=== PATIENT | male | born 1940 | race Caucasian/White ===

== ENCOUNTER 2017-10-24 06:14 | Inpatient (IN) ==
[~2017-10-24 06:14] MED LIST: Vancomycin 1,000 MG, Sodium Chloride IRRigation 1,000 ML IR ONE
[2017-10-24] MEDS ORDERED: CeFAZolin Syr 2,000MG/20 ML 2,000 MG/20 ML SYRINGE IVPB ONE (06:35)
[2017-10-24] MEDS ORDERED: Albuterol 2.5 MG/3 ML NEBULIZER IH ONE (06:35)
[2017-10-24] MEDS ORDERED: Lidocaine -MPF 1% 2 ML VIAL ID ONE (06:37)
[2017-10-24] MEDS ORDERED: Albuterol 2.5 MG/3 ML NEBULIZER ONE (06:39)
[2017-10-24] MEDS ORDERED: Ringers Solution, Lactated 1,000 ML IVC SCH (06:45)
--- NOTE | 2017-10-24 07:11 | Anesthesia Evaluation PreOp ---
Date of Encounter: 10/24/17 Time of Encounter: 07:05 - Past History Planned Operation: R-Fem-Pop Bypass Cardiac History: [place] (NSTEMI), HTN, Hyperlipidemia, Arrhythmia (AFib anticoagulated on Eliquis last dose 10/20/2017. 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 CRI/GFR = 39) Anesthesia History: No Prior Anesthetic Complications, Past Anesthesia (Gilma, CEA [2007]) Alcohol Use: none Drug use: none Medications and Allergies Furosemide [Lasix] 20 mg PO BID 02/29/16 [History] Simvastatin [Zocor] 20 mg PO HS 02/29/16 [History] Tamsulosin HCl [Flomax] 0.4 mg PO DAILY 02/29/16 [History] Apixaban [Eliquis] 2.5 mg PO BID #30 tablet 03/01/16 [Rx] Nitroglycerin [Nitrostat] 0.4 mg SL AD PRN 04/12/16 [History] Finasteride [Proscar] 5 mg PO DAILY 10/02/17 [History] Clopidogrel [Plavix] 75 mg PO DAILY #30 tablet 10/16/17 [Rx] Spironolactone [Aldactone] 25 mg PO BID 10/16/17 [History] Aspirin 81 mg PO DAILY 10/24/17 [History] 3 Allergy/AdvReac Type Severity Reaction Status Date / Time No Known Allergies Allergy Verified 02/29/16 08:03 - Meds/Allergy Pre-op Review Medications Reviewed: Yes Allergies Reviewed: Yes Anesthesia Results - Labs Laboratory Tests 04/13/16 10/01/17 10/01/17 00:54 09:19 09:19 WBC 6.3 Hgb 14.3 Hct 44.0 Plt Count 166 PT 11.5 INR 1.1 APTT 29.3 Sodium Potassium Chloride Carbon Dioxide Est GFR (Non-Af Amer) Est Mean Plasma Glucose 105 Hemoglobin A1c 5.3 10/01/17 09:19 WBC Hgb Hct Plt Count PT INR APTT Sodium 138 Potassium 4.0 Chloride 105 Carbon Dioxide 26 Est GFR (Non-Af Amer) 39 L Est Mean Plasma Glucose Hemoglobin A1c - Imaging EKG: image reviewed (62bpm - ATRIAL FIBRILLATION RIGHT BUNDLE BRANCH BLOCK LEFT ANTERIOR FASCICULAR BLOCK INFERIOR MYOCARDIAL INFARCTION, PROBABLY OLD Electronically Signed On 09-26-2017 17:05:00 EDT by Samina Sanchez) Additional studies: ECHO 03/2016 Impressions: LVEF 60%. Normal left ventricular size and systolic function. Moderately enlarged left atrial size. Severely dilated right ventricle and severely enlarged right atrial size. Moderate-severe tricuspid regurgitation. Mild aortic regurgitation. Mild aortic stenosis. Moderate mitral regurgitation. Estimated RVSP was 45 mmHg. Mild pulmonary hypertension. RAP of 15 mmHg. The IVC is dilated. There is a large pleural effusion. Clinical correlation is suggested. Anesthesia Exam O2 Sat Height 1.8 m Height 1.8 m Weight 79.832 kg Weight 79.832 kg O2 Sat by Pulse Oximetry 95 Vital Signs Temp Pulse Resp BP Pulse Ox 97.6 F 66 18 135/70 95 10/24/17 06:50 10/24/17 06:50 10/24/17 06:50 10/24/17 06:50 10/24/17 06:50 Height: 5'11 Weight: 180# BMI = 24.5 - HEENT Pupil (Motor): Pupils equal, EOMI Mallampati: II Teeth: Edentulous Oral Opening: Greater than 3 - INTEGRATION PROJECT MANAGER LOC: Oriented INTEGRATION PROJECT MANAGER Motor: Normal RUE, Normal LUE, Normal RLE, Normal LLE, Normal Face INTEGRATION PROJECT MANAGER Sensory: Normal: RUE, LUE, RLE, LLE, Face - Cardiac Rhythm: Irregular Murmur: None - Pulmonary Breath Sounds: bilateral Clear Respiratory Effort: Symmetrical Anesthesia Assess/Plan ASA Score: 3 (CAD,PVDz, COPD, Smoker, Hx CVA, CRI) Modified Aditi Scale for Level of Consciousness: Cooperative, oriented, and tranquil Anesthetic Plan: General Monitoring Plan: Standard Monitors Recovery Plan: PACU Anes Supervising Prov Stmt: Pt seen/evaluated, R&B Discussed, questions answered and consent obtained .Zander Chaves MD
[2017-10-24] MEDS ORDERED: Heparin 1,000 UNITS/500 mL 1,500 ML ONE (07:16)
[2017-10-24] MEDS ORDERED: Famotidine 20 MG/2 ML VIAL IVP ONE (07:23)
[2017-10-24] MEDS ORDERED: Pregabalin 75 MG CAPSULE PO ONE (07:23)
[2017-10-24] MEDS ORDERED: Acetaminophen IV 1,000 MG/100 ML INFUS..BTL IVPB ONE (07:23)
[2017-10-24] MEDS ORDERED: *HR* Propofol 200 MG/20 ML VIAL IVP ONE ×2 (07:33→16:39)
[2017-10-24] MEDS ORDERED: *HR* Succinylcholine 200 MG/10 ML VIAL IVP ONE ×2 (07:33→16:41)
[2017-10-24] MEDS ORDERED: Lidocaine -MPF 4% 5 ML AMPUL ONE (07:33)
[2017-10-24] MEDS ORDERED: Lidocaine -MPF 2% 2 ML VIAL ONE ×3 (07:33→16:41)
[2017-10-24] MEDS ORDERED: *HR* FentaNYL (PF) 100 MCG/2 ML VIAL ONE ×3 (07:33→16:39)
--- NOTE | 2017-10-24 07:33 | History & Physical Report ---
Date of Encounter: 10/24/17 Time of Encounter: 07:25 24 Hour HP Update - Instructions Instructions: If the History and Physical is less than 30 days old and was completed prior to A.M. admission and or procedure and has NOT been updated on calendar day of procedure please complete this update prior to performing procedure. - Update Patient reports changes in Medical Condition: No Changes in examination, assessment, or condition: No Changes in Medication: No Preop tests/diagnostics Reviewed: Yes Surgery Remains Indicated: Yes Consent for Planned Operative Procedure(s) Verified: Yes - Pre-Operative Checklist Preoperative Checklist Indicated: Yes Prophylactic Antibiotic Ordered: Yes (vancomycin due to MRSA risk) Home Medications Include Beta Franny: No Beta Franny Taken Today (Day of Surgery): No Beta Franny Taken Yesterday (Day Prior to Surgery): No Is VTE Prophylaxis Indicated?: Yes
[2017-10-24] MEDS ORDERED: Heparin 1,000 UNITS/500 mL 0 ML ONE (07:34)
[2017-10-24] MEDS ORDERED: *HR* PHENYLEPHRINE 1,000 MCG/10 ML SYRINGE IVP ONE ×2 (07:39→09:18)
[2017-10-24] MEDS ORDERED: *HR* Atropine Sulfate 8 MG/20 ML VIAL IVP ONE (08:22)
[2017-10-24] MEDS ORDERED: NiCARdipine 2.5 MG/10 ML Syringe IVPB ONE (08:24)
[2017-10-24] MEDS ORDERED: *HR* Heparin 5,000 UNIT/ML VIAL ONE ×3 (09:14→11:48)
[2017-10-24] MEDS ORDERED: *HR* Magnesium Sulfate 1 GM/2 ML VIAL ONE (09:14)
[2017-10-24] MEDS ORDERED: *HR* Phenylephrine 10 MG/ML VIAL ONE ×4 (09:39→13:22)
[2017-10-24] MEDS ORDERED: *HR* OxyCODONE Immed Rel 5 MG TABLET PO PRN ×3 (10:17→22:37)
[2017-10-24] MEDS ORDERED: MORPHINE SUL Oral CONC 10 MG/0.5 ML ORAL.SYG SL PRN (10:17)
[2017-10-24] MEDS ORDERED: *HR* HYDROmorphone 2 MG TABLET PO PRN (10:17)
[2017-10-24] MEDS ORDERED: Dexamethasone 4 MG/ML VIAL ONE (10:36)
[2017-10-24] MEDS ORDERED: Ondansetron 4 MG/2 ML VIAL ONE (10:36)
--- NOTE | 2017-10-24 10:50 | Anesthesia Procedures ---
Date of Encounter: 10/24/17 Time of Encounter: 07:45 Procedures: Anesthesia - Arterial Line Consent obtained: verbal consent Time out performed: Yes Sedation: Versed (mg): 0 Sedation: Fentanyl (mcg): 50 Supplemental Oxygen via Nasal Cannula (L/min): 0 Local Anesthetic: Lidocaine 1% Amount of Anesthetic used (mls): 1 Size (Gauge): 20 Length (inches): 1 3/4 Technique Used: sterile prep, guide wire technique, direct puncture technique Post-Procedure: line taped into place Patient tolerated procedure: well, no complications Complications: none Site: Radial R Vitals: See Anesthesia Record Comments: Landmarks identified. Sterile P&D, R-radial pulse readily palated. Direct puncture w/20G Arrow. +BRB pulsatile noted. + difficulty advancing guidewire. Aborted that location in favor of more proximal location. + pulsatile BRB noted after readily cannulation w/20G Arrow. Cathther advanced over guidewire without difficulty. Catheter secured. Appropriate wave forms noted on monitor. NO immediate complications. Pt tolerated procedure well and without difficulty. Zander Chaves MD
[2017-10-24 11:48] LABS: ABG Base Excess -3 mEq/L (-2 to 3); ABG Chloride 109 mEq/L (98-107); ABG Glucose 105 mg/dL (60-95); ABG HCO3 23 mEq/L (21-27); ABG Ionized Calcium 1.16 mmol/L (1.15-1.35); ABG Oxygen Saturation 100 % (95-98); ABG PCO2 45 mmHg (35-45); ABG PH 7.33 pH Units (7.32-7.45); ABG PO2 260 mmHg (85-104); ABG TCO2 25 mEq/L (20-26)
[2017-10-24] MEDS ORDERED: Phenylephrine 10 MG in D5% in Water 250 ML IVC SCH (14:15)
--- NOTE | 2017-10-24 14:52 | Operative Note ---
Date of procedure: 10/24/17 Pre-op diagnosis: Peripheral vascular disease with disabling claudication Post-op diagnosis: same Procedure: 1. Right femoral to above knee popliteal artery bypass. 2. 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 3. Right popliteal endarterectomy. 4. Right popliteal and tibial thrombectomy with 4 sudanese lorne embolectomy catheter. Complications: None Anesthesia: GETA Surgeon: Ye Guzman Was there an respiratory therapy assistant present: Yes Air Analysis Engineering Technician: Arya Puente Estimated blood loss (cc): 500 Specimen: femoral aneurysm, right lower extremity plaque and thrombus Condition: stable Disposition: PACU Procedure in Detail: Indications: The patient is a 77-year-old male with a long history of peripheral vascular disease with disabling claudication. His femoral angiogram to have a right superficial femoral artery occlusion with above-knee popliteal artery reconstitution. His angiogram revealed an enlarged right common femoral artery as well. Revascularization was recommended to reduce his symptoms. Procedure: The patient was identified in the preoperative area. The risks, benefits, and alternatives of the procedure were discussed. All questions were answered. The patient was taken to the operating room and placed in supine position on the operating room table. After the induction of general endotracheal anesthesia, he was cleaned and draped in normal sterile fashion. An oblique incision was made over the right groin sharply. Hemostasis was obtained with electrocautery. Through a process of blunt, sharp, and electrocautery dissection, the right femoral vessels were dissected circumferentially. 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 Proximal distal control of this aneurysm was performed circumferentially and vessel loops were passed around it An incision was made on the right medial distal thigh sharply. Hemostasis was obtained with electrocautery. Through a process of blunt, sharp, and electrocautery dissection, the right above-knee popliteal artery was dissected proximally and distally and surrounded with vessel loops. The artery was noted to have firm and calcified plaque. A graft was tunneled between the popliteal and femoral incisions. The patient received 5000 units of heparin intravenously. Additional heparin was given throughout the case to maintain adequate anticoagulation. The popliteal vessels were occluded and a longitudinal arteriotomy was made in the popliteal artery. Significant irregular plaque was noted in the popliteal artery. Using a dental freer a standard endarterectomy is performed. The plaque was removed. The distal end point could not be visualized through the arteriotomy. The distal end of the graft was sutured in place with a running 6-0 Prolene, but not tied. Heparinized saline was infused into the lumen. Tension was applied to the femoral vessel loops. An arteriotomy was made in the lateral wall of the common femoral artery. The aneurysm was circumferentially excised until grossly normal-appearing femoral artery was encountered. A localized endarterectomy of calcified plaque was also performed along the margins. The proximal end of the graft was cut to fit the arterial defect. The graft was then sutured to the long arterial defect with a running 6-0 Prolene. The vessels were flushed through the graft and heparin was infused into the lumen. The graft was clamped with an atraumatic clamp. Thrombin and gelfoam were used at the proximal anastamosis. The distal arterial anastomosis was completed and prior to completing the closure, the popliteal vessels were flushed and reoccluded. Heparinized saline was infused into the lumen. The anastamosis was tied and then flow was restored. At this time, no tibial signals could identify by Doppler. The Doppler signal terminated in the popliteal fossa. Concern for distal disease was noted. An incision was then made along the medial calf longitudinally. Through a process of blunt sharp and electrocautery dissection the skin, subcutaneous tissue and muscle fascia were dissected. The below-knee popliteal artery was exposed. The posterior artery below the knee was dissected circumferentially pocks proximally and distally and surrounded with vessel loops. A longitudinal arteriotomy was made popliteal artery. Using a 4-Ukrainian Lorne embolectomy catheter a proximal thrombectomy was then performed. No significant flow was noted and no plaque was noted. No thrombus was encountered. The balloon was passed distally and no significant thrombus was retrieved. An incision was made in the medial thigh and the saphenous vein was dissected circumferentially. She returned vessels were ligated with 30 and 4-0 silk suture. The distal end of the saphenous vein was then ligated and divided in the mid thigh. It was not dissected to the saphenofemoral junction. The saphenofemoral junction was clamped. The saphenous vein was excised. The saphenofemoral junction was then oversewn with 6-0 Prolene. The vein was flushed and placed heparin saline. Attention was then returned to the below-knee popliteal artery. Tension was released from the vessel loop and strong pulsatile flow was noted. The 4 Lorne embolus to be catheter was then passed multiple times proximally and small amount of thrombus was retrieved. After multiple additional passes no additional thrombus was retrieved and vigorous pulsatile flow continued. The longitudinal arteriotomy was then extended distally along the popliteal artery. A bovine pericardial patch was cut to fit the defect and sutured in place with a running 6-0 Prolene. The vessels were flushed proximal and distally before completing the patch. Heparinized saline was then infused into the lumen After completing the patch flow was restored in polyphasic signals were noted in the anterior tibial and posterior tibial vessels. Polyphasic signals were noted distal to the distal anastomosis as well as at the posterior tibial artery. Wounds were irrigated with antibiotic-containing saline. Thrombin and gelfoam were used to aid in hemostasis. Platelet rich and platelet poor plasma were infused into the wounds. Meticulous hemostasis was obtained throughout the wound with electrocautery. Wounds were reapproximated with layers of 2-0 and 3-0 Vicryl. Skin was reapproximated with 3-0 Monocryl. Sterile dressing was applied. The patient was extubated and taken to recovery room in stable condition.
--- NOTE | 2017-10-24 14:57 | Anesthesia Evaluation Post Op ---
Date of Encounter: 10/24/17 Time of Encounter: 14:56 - Vital Signs Vital Signs: Last Vital Signs Temp 97.8 F 10/24/17 14:44 Pulse 70 10/24/17 14:44 Resp 16 10/24/17 14:44 BP 125/57 10/24/17 14:44 Pulse Ox 96 10/24/17 14:44 - Lungs Lungs: Clear Ascult./Percussion - Airway Airway: Non-obstructed - Cardiovascular Regular Rate - Mental Status Mental Status: Alert & Oriented, Answers Appropriately - Pain Pain Scale: 4 - Nausea Vomiting Nausea Vomiting: Not Present - Hydration Hydration: Ice chips, Rogers catheter - Discharge PostOp Status: Transfer Patient to floor
--- NOTE | 2017-10-24 14:59 | Electrocardiograph Report ---
[place] [id number] Test Date: 2017-10-24 Pat Name: Stewart Sims Department: 101 Room: Gender: M Film And Video Editor: CHALO : 1940 Requested By: Goldie Sloan Order Number: [id number] Reading MD: Rina Main Measurements Intervals [place] Rate: 64 P: ME: 0 QRS: -36 QRSD: 157 T: -18 QT: 476 QTc: 486 Interpretive Statements ATRIAL FIBRILLATION LEFT AXIS DEVIATION RIGHT BUNDLE BRANCH BLOCK Electronically Signed On 10-24-2017 14:57:37 EDT by Rina Main
--- NOTE | 2017-10-24 15:14 | Operative Note ---
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 He is status post renal artery stent angioplasty. He is on active antiplatelet therapy with Plavix at this time. Patient also has significant right lower extremity disease and lifestyle limiting claudication. He now comes to the operating room for right lower extremity revascularization. Procedure After informed consent was obtained the patient was taken to the operating room. General endotracheal anesthesia was established under arterial line pressure monitoring. The abdomen groin and right lower extremity were then sterilely prepped and draped. A timeout protocol was observed. A 2 team surgical approach was utilized for this procedure. This was done because of the patient's comorbid conditions. This was also done in order to facilitate complex intraoperative decision-making and to minimize anesthetic time. Dissection was then made simultaneously through the right groin via an oblique incision and through the distal above the knee popliteal incision. Dissection at the groin revealed an aneurysm of the common femoral artery. Dissection at the popliteal artery revealed a relatively large diameter vessel with atherosclerotic debris. A subsartorial tunnel was created. Heparin was administered. After 3 minute delay the vessels were clamped and opened simultaneously. This allowed for resection of the right common femoral artery aneurysm. Simultaneous to this an arteriotomy was made in a longitudinal fashion in the right [id number] popliteal artery. Very thick calcific plaque was encountered. A formal endarterectomy was then performed using a [place] elevator. The material removed was a very thick dense collection of plaque. Back flow and antegrade flow was noted at the popliteal area. This area was copiously irrigated with heparinized saline. With these adjunctive procedures performed the patient then had the bypass graft created. A 6 mm PTFE Distaflo graft was selected. This was passed through the subsartorial tunnel. The fluted and was passed to the distal aspect. After the endarterectomy the graft was endarterectomized to the artery in an end-to-side fashion. 6-0 Prolene suture was used for this. Simultaneously the proximal anastomosis was fashioned over the common femoral artery after resection of the aneurysm. After appropriate backbleeding and flushing the graft was open. Pulsatile flow was achieved through the graft. However on evaluation of the graft was no pulse distally and no Doppler signals were identified at the ankle. This then led to opening of the hcgzz-fva-[id number] popliteal artery. Dissection was performed and controls obtained of this vessel. The vessel was nonpulsatile. The artery was then opened through a longitudinal incision. A 4 Mexican catheter was then passed retrograde and number of times. The catheter was able to be passed into the area of the femoral popliteal artery anastomosis. No obvious thrombus or clot was removed. The back flow was inadequate and so therefore a decision was made at that point to create a [id number]-[id number] to [id number]-[id number]-chxr popliteal artery bypass graft. The greater saphenous vein wasn't harvested from the thigh through proximal incisions. The vein was dilated and was prepared for bypass grafting. One creating the by pass graft site it was noted that the flow through the popliteal artery was now markedly improved. This was somewhat confusing as there had been a spontaneous improvement since it was last evaluated. Therefore a bovine pericardial patch into plasty was performed after enlarging the arteriotomy on the bwwhj-fvb-[id number] popliteal tibial peroneal trunk area. A 4 Mexican Tracy catheter was also passed proximally and distally to perform a thrombectomy. After the patch was fashioned and appropriate backbleeding and flushing was performed the patient was noted to now have a palpable pulse in the tibial peroneal trunk. A Doppler signal was also identified over the distalis pedis artery at the ankle. With these findings it was opted not to proceed then with the duihk-pyr-qvow to ssapq-hgu-blgn popliteal artery bypass graft. The wounds were then irrigated. Hemostasis was achieved. Should be noted the patient had excessive oozing from all incisions which is thought secondary to his ongoing Plavix use. The wounds were then closed in layers using absorbable suture. Sterile dressings were applied. The patient had no intraoperative complications. He was taken from the operating room to the recovery room in stable condition.
[2017-10-24] MEDS ORDERED: *HR* HYDROcodone/Acet 5/325 mg TABLET PO PRN ×2 (15:33→22:37)
[2017-10-24] MEDS ORDERED: Acetaminophen 325 MG TABLET PO PRN ×2 (15:33→22:37)
[2017-10-24] MEDS ORDERED: Naloxone 0.4 MG/ML INJ IVP PRN ×2 (15:33→22:37)
[2017-10-24] MEDS ORDERED: *HR* Labetalol 20 MG/4 ML SYRINGE IVP PRN ×2 (15:33→22:37)
[2017-10-24] MEDS ORDERED: OXYCODONE Oral CONC 10 MG/0.5 ML ORAL.SYG SL PRN ×4 (15:33→22:37)
[2017-10-24] MEDS ORDERED: Ondansetron 4 MG/2 ML VIAL IVP PRN (15:33)
[2017-10-24] MEDS ORDERED: Nitroglycerin 0.4 MG TAB.SUBL SL PRN ×2 (15:33→22:37)
[2017-10-24] MEDS ORDERED: 0.9 % Sodium Chloride 1,000 ML ONE (15:35)
[2017-10-24] MEDS ORDERED: CeFAZolin Pre 2,000 MG/100 ML 2,000 MG/100 ML BAG IVPB SCH (16:00)
[2017-10-24 16:16] LABS: Basophils # 0.1 K/mcL (0.0-0.2); Basophils % 0.5 %; Eosinophils % 0.2 %; Hematocrit 28.6 % (37.5-50.1); Hemoglobin 9.4 g/dL (12.9-16.9); Immature Granulocytes % 0.7 % (0-4); Lymphocytes % 8.1 %; Mean Corpuscular HGB Conc 32.9 g/dL (31.6-35.5); Mean Corpuscular Hemoglobin 30.9 pg (28.0-33.3); Mean Corpuscular Volume 94.1 fL (83.0-100.0); Mean Platelet Volume 10.5 fL (9.4-12.4); Monocytes # 0.2 K/mcL (0.0-1.3); Monocytes % 1.6 %; Neutrophils # 10.9 K/mcL (1.6-8.9); Platelet Count 183 K/mcL (140-400); Red Blood Count 3.04 M/mcL (4.19-5.50); Red Cell Distribution Width 13.7 % (11.5-14.5); Segmented Neutrophils % 88.9 %
[2017-10-24] MEDS ORDERED: Heparin 1,000 UNITS/500 mL 500 ML ONE (16:16)
[2017-10-24 16:18] LABS: INR 1.3; Prothrombin Time 13.9 Seconds (9.4-12.1)
[2017-10-24 16:21] LABS: Activated Partial Thrombo Time 31.8 Seconds (26.0-36.0)
[2017-10-24 16:25] LABS: Calcium 8.2 mg/dL (8.6-10.3); Potassium 4.7 mEq/L (3.5-5.1)
--- NOTE | 2017-10-24 16:29 | Event Note ---
Date of Encounter: 10/24/17 Time of Encounter: 16:26 Mr. Sims was seen as an emergency on 2 N. He had just been transferred from the recovery room following his operation earlier today. He was found to be markedly hypotensive with a blood pressure of 50/34. The patient went on to be placed into Trendelenburg and given intravenous fluid. He was also given 2 units of typed specific blood as an emergency. Laboratory values were also obtained. He complained of persistent pain in the right groin and back area. The patient does have a swelling in the right groin. Because of these findings and the hypotension I cannot treat him with narcotics and the patient needs to go back to the operating room for exploration with evacuation of hematoma and to assess for any signs of recurrent bleeding. I discussed this with the patient's son who is here at the bedside. The patient was also informed. We will proceed with emergency surgery this afternoon as soon as a bed is available.
[2017-10-24] MEDS ORDERED: *HR* Midazolam HCl 2 MG/2 ML VIAL ONE (16:38)
[2017-10-24] MEDS ORDERED: *HR* Etomidate 40 MG/20 ML VIAL IVP ONE (17:10)
[2017-10-24] MEDS ORDERED: *HR* HYDROmorphone (PF) 1 MG/ML SYRINGE IVP PRN ×2 (17:43→22:37)
[2017-10-24] MEDS ORDERED: *HR* Metoprolol 5 MG/5 ML VIAL IVP SCH (18:00)
--- NOTE | 2017-10-24 18:18 | Operative Note ---
Date of procedure: 10/24/17 Pre-op diagnosis: right groin hematoma/hypotension Post-op diagnosis: same Procedure: evacuation of right groin hematoma Complications: 0 Anesthesia: GETA Surgeon: Arya Puente Was there an assignment desk assistant present: No Estimated blood loss (cc): 50 Specimen: 0 Condition: stable Disposition: PACU Procedure in Detail: History Stewart Sims is a 77-year-old white male wood undergone a complicated right lower extremity reconstruction with bypass grafting and endarterectomy earlier in the day. When the patient arrived on he was found to be markedly hypotensive with a blood pressure less than 80. The patient required intravenous fluid and emergency blood transfusion. Patient also had significant pain in the right groin with swelling consistent with a hematoma. The patient was taken back to the operating room as an emergency for bleeding and hematoma evacuation. Procedure After informed consent was obtained the patient was taken the operating room. General endotracheal anesthesia was established. The abdomen right lower extremity and right groin were sterilely prepped and draped. A timeout protocol was observed. The right groin surgical incision was then opened. Liquid and clotted blood was identified and aspirated. There was no active bleeding at the time though there was scattered areas of oozing. The surgical anastomoses were intact. Flow through the cahto artery and into the femoral popliteal bypass graft was uninterrupted. The wound was copiously irrigated with antibody containing solution. Fibrillar was packed into the wound and allowed to remain in position for approximate 5 minutes. He was then removed. There was no bleeding. The wound was then infiltrated with half percent Marcaine. The wound was then closed in layers using absorbable suture. The patient was excreted in the operating room. He was taken to the recovery room in stable condition. There were no intraoperative complications. Of note the patient required intraoperative Tyler-Synephrine drip to sustain adequate blood pressure. It is anticipated the patient will require Tyler- Synephrine drip postoperatively as well.
[2017-10-24] MEDS ORDERED: Ringers Solution, Lactated 1,000 ML ONE (18:47)
[2017-10-24 20:28] LABS: Basophils % 0.3 %; Hematocrit 32.9 % (37.5-50.1); Immature Granulocytes % 0.5 % (0-4); Lymphocytes # 0.5 K/mcL (0.6-4.6); Lymphocytes % 4.1 %; Mean Corpuscular HGB Conc 33.4 g/dL (31.6-35.5); Mean Corpuscular Hemoglobin 30.9 pg (28.0-33.3); Mean Corpuscular Volume 92.4 fL (83.0-100.0); Mean Platelet Volume 10.2 fL (9.4-12.4); Monocytes # 0.5 K/mcL (0.0-1.3); Neutrophils # 11.1 K/mcL (1.6-8.9); Platelet Count 127 K/mcL (140-400); Red Blood Count 3.56 M/mcL (4.19-5.50); Red Cell Distribution Width 14.1 % (11.5-14.5); Segmented Neutrophils % 91.1 %
[2017-10-24] MEDS ORDERED: Spironolactone 25 MG TABLET PO SCH (21:00)
[2017-10-24] MEDS ORDERED: Furosemide 40 MG TABLET PO SCH (21:00)
--- NOTE | 2017-10-24 22:42 | Anesthesia Procedures ---
Date of Encounter: 10/25/17 Time of Encounter: 21:50 Procedures: Anesthesia - Central Line Placement Right IJ Consent obtained: written consent Time out performed: Yes Patient placed on monitor/pulse ox: Yes MD prep: mask, gown, gloves Central line prep: Chlorhexidine scrub Local Anesthetic Used: Lidocaine 1% Amount of Anesthetics Used (mls): 3 Ultrasound used for placement: Yes Technique: Seldinger Lumen Inserted: triple Size / Length: 7 Fr / 16 cm Post procedure: sutured in place, good blood return, all ports aspirated, flushed, capped, sterile dressing applied Post procedure x-ray: tip of catheter in good position Patient tolerated procedure: well Complications: none Vitals: Vital Signs/O2 Sat, Most Current Temp Pulse Resp BP Pulse Ox 98.2 F 78 18 114/68 96 10/24/17 22:18 10/24/17 22:28 10/24/17 22:28 10/24/17 22:28 10/24/17 22:28
[2017-10-24] MEDS: *HR* Metoprolol 5 MG/5 ML VIAL IVP SCH (23:22)
[2017-10-25] MEDS: CeFAZolin Pre 2,000 MG/100 ML 2,000 MG/100 ML BAG IVPB SCH ×2 (00:08→07:49)
[2017-10-25] MEDS: Phenylephrine 10 MG in D5% in Water 250 ML IVC SCH ×4 (02:30→15:45)
[2017-10-25 03:35] LABS: Basophils # 0.1 K/mcL (0.0-0.2); Basophils % 0.4 %; Eosinophils % 0.1 %; Hematocrit 30.2 % (37.5-50.1); Hemoglobin 10.2 g/dL (12.9-16.9); Immature Granulocytes % 0.6 % (0-4); Lymphocytes # 1.4 K/mcL (0.6-4.6); Lymphocytes % 9.2 %; Mean Corpuscular HGB Conc 33.8 g/dL (31.6-35.5); Mean Corpuscular Hemoglobin 30.7 pg (28.0-33.3); Mean Platelet Volume 10.2 fL (9.4-12.4); Monocytes # 1.3 K/mcL (0.0-1.3); Monocytes % 8.4 %; Neutrophils # 12.2 K/mcL (1.6-8.9); Platelet Count 138 K/mcL (140-400); Red Blood Count 3.32 M/mcL (4.19-5.50); Red Cell Distribution Width 14.2 % (11.5-14.5); Segmented Neutrophils % 81.3 %
[2017-10-25 03:51] LABS: Calcium 9.3 mg/dL (8.6-10.3)
[2017-10-25] MEDS ORDERED: Furosemide 20 MG/2 ML VIAL IVP ONE (04:54)
[2017-10-25] MEDS: Spironolactone 25 MG TABLET PO SCH ×2 (04:55→22:26)
[2017-10-25] MEDS: *HR* Metoprolol 5 MG/5 ML VIAL IVP SCH (04:59)
[2017-10-25] MEDS: 0.9 % Sodium Chloride 1,000 ML IVC SCH ×2 (05:27→15:29)
[2017-10-25] MEDS ORDERED: *HR* Heparin 5,000 UNIT/ML VIAL SQ SCH ×3 (06:00)
[2017-10-25] MEDS: Finasteride 5 MG TABLET PO SCH (08:21)
[2017-10-25] MEDS: Furosemide 40 MG TABLET PO SCH ×2 (08:21→22:26)
[2017-10-25] MEDS ORDERED: *HR* Rocuronium Bromide 100 MG/10 ML VIAL IVC ONE (08:40)
[2017-10-25] MEDS ORDERED: *HR* Midazolam HCl 5 MG/5 ML VIAL IVP ONE (08:40)
[2017-10-25] MEDS ORDERED: Finasteride 5 MG TABLET PO SCH (09:00)
[2017-10-25] MEDS ORDERED: *HR* EPINEPHrine 1 MG/10 ML SYRINGE IVP ONE (09:27)
--- NOTE | 2017-10-25 10:47 | Vascular/Endovas Progress Note ---
Date of Encounter: 10/25/17 Time of Encounter: 09:30 - Assessment and plan (1) Atherosclerosis of [place] artery of both lower extremities with intermittent claudication Current Visit: Yes Status: Chronic The patient is postoperative day #1 after resection of a right femoral aneurysm , right femoral to popliteal artery bypass and right tibial thrombectomy. His wounds appear to be healing well. He has no hematoma. He has polyphasic pedal signals. (2) Chronic atrial fibrillation Current Visit: No Status: Chronic The patient has chronic atrial fibrillation. His anticoagulation is held at this time due to risk of bleeding. He had an episode of syncope earlier today cardiology has been consulted. Critical care has also been consulted. (3) Dyslipidemia Current Visit: No Status: Chronic (4) CKD (chronic kidney disease), stage III Current Visit: No Status: Chronic His creatinine is relatively stable. Continue with intravenous hydration. (5) COPD (chronic obstructive pulmonary disease) Current Visit: No Status: Chronic Qualifiers: COPD type: emphysema Emphysema type: panlobular Qualified Code(s): J43.1 - Panlobular emphysema (6) CAD (coronary artery disease) Current Visit: No Status: Chronic Qualifiers: Coronary Disease-Associated Artery/Lesion type: [place] artery [place] vs. transplanted heart: [place] heart Associated angina: without angina Qualified Code(s): I25.10 - Atherosclerotic heart disease of [place] coronary artery without angina pectoris (7) Tobacco abuse Current Visit: Yes Status: Chronic (8) Chronic anemia Current Visit: Yes Status: Chronic The patient has chronic anemia. He also has acute expected postoperative blood loss anemia. He was taken to the operating room yesterday postoperatively for possible bleeding and hematoma formation. This coincided with an episode of his hypotension. There is no evidence of active bleeding at the time of his reoperation. There is no evidence of expanding hematoma. He has no evidence of ongoing blood loss. - Subjective Interval history: The patient is alert and comfortable without complaints. He reports adequate pain control. He had asyncopal espisode this morning while sitting on the side of his bed. He reports that he has been experiencing episodes of low blood pressure for 2 years. He denies chest pain or shortness of breath. Vital Signs, Last 4 Hours Temp Pulse Resp BP Pulse Ox 10/25/17 10:26 53 18 94/51 98 10/25/17 09:00 67 21 111/57 97 10/25/17 08:03 64 10/25/17 08:00 64 17 122/34 99 10/25/17 07:45 97.4 F L 10/25/17 07:11 55 18 107/70 95 - Physical Examination General: Present: Conversant, No Apparent Distress HEENT: Present: Pupils equal Neck: Absent: JVD Cardiac: Present: Normal S1 and S2, Irregular Rhythm Lungs: Present: Normal Breath Sounds, No Wheeze, Rales, Rhonchi Neuro: Present: Alert and responsive, No focal deficits noted, Motor nerves grossly intact, Sensory nerves grossly intact Vascular: Present: Normal capillary refill, Pulse, normal, Surgical incisions ( clean, dry and intact without erythema, drainage or hematoma). Absent: Cyanosis , Edema Abdomen: Present: Soft, Non-tender. Absent: Masses Skin: Present: No rashes noted on visualized skin - VTE Documentation of Mechanical Device: Intermittent pneumatic compression device Results 10/25/17 15:04 10/25/17 15:04 Lab Results, Last 24 hours 10/24/17 10/24/17 10/24/17 14:15 15:33 15:33 WBC Hgb Hct Plt Count INR 1.3 APTT 31.8 Sodium 137 Potassium 4.7 Chloride 110 H Carbon Dioxide 22 L BUN 31 H Creatinine 1.79 H Glucose 149 H Calcium 8.2 L Troponin I < 0.03 10/24/17 10/24/17 10/25/17 15:42 20:12 03:15 WBC 12.3 H 12.1 H 15.0 H Hgb 9.4 L 11.0 L D 10.2 L Hct 28.6 L 32.9 L 30.2 L Plt Count 183 127 L 138 L INR APTT Sodium Potassium Chloride Carbon Dioxide BUN Creatinine Glucose Calcium Troponin I 10/25/17 10/25/17 03:15 08:00 WBC Hgb Hct Plt Count INR APTT Sodium 135 L Potassium 6.0 H D 5.0 Chloride 110 H Carbon Dioxide 24 BUN 31 H Creatinine 1.66 H Glucose 107 H Calcium 9.3 Troponin I Consult Discharge Plan - Plan Referrals: Ye Guzman MD [Partnered Physician] - 11/25/17 2:50 pm [facility],PCP [Primary Care Provider] - 10/30/17 10:45 am
--- NOTE | 2017-10-25 11:31 | Cardiology Consult Note ---
Date of Encounter: 10/25/17 Time of Encounter: 11:00 Assessment and Plan (1) Vaso vagal episode Current Visit: Yes Status: Acute Per cardiology: -Suspect vaso vagal episode this morning while sitting on bedside commode. -Currently on vasopressors. -Patient reported to me that he has not had these episodes at home previously. -Will check TTE. (2) A-fib Current Visit: No Status: Acute Per cardiology: -Known a.fib, on eliquis in outpateint setting. -ECG today reviewed with and noted to be a.fib, HR 64, RBBB -Telemetry reveiwed with average HR pervious 12 hours noted to be 64, a.fib. -Had not been on BB in outpatient setting due to bradycardia. -Will continue to monitor. Qualifiers: Atrial fibrillation type: chronic Qualified Code(s): I48.2 - Chronic atrial fibrillation (3) Valvular heart disease Current Visit: Yes Status: Acute Per cardiology: -last TTE 03/2016 with LVEF 60%, moderately dilated LA, severely dilated RV, severely dilated RA, moderate-severe TR, moderate MR, mild PH, no segmental wall motion abnormalities. -Euvolemic on exam. -Takes lasix and aldactone. -Will repeat TTE. Discussion w patient/family: The assessment and plan as outlined above was discussed with the patient who expressed understanding and agreement. All questions were answered. Thank you for involving us in the care of your patient. Please call with any questions. Discussed and reviewed with . History of Present Illness Consult date: 10/25/17 Requesting physician: Ye Guzman Consult reason: syncopal episode Chief complaint: vascular surgery History of present illness: Mr. Sims is a 77 year old male with a relevant past medical history of NM, CVA x2, PAD, COPD, CKD who presented to [facility] for vascular procedure. Patient underwent angiogram and them right fem-pop bypass. Patient had significant hypotension post op and was trasnferred to ICU. Currently on vasopressors. Cardiology has been consulted due to possible syncopal episode this am. Patient reports he was sitting on bedside commode when he passed out. Patient denies syncopal or near syncopal epidoses at home. Per patient's RN, patient was sitting on bedside commode, eyes were glazed over. Past Med Surg Social Fam HX - Past Medical History Attestation: Yes The following information was validated with the patient. Source: patient, old records reviewed Medical history: aortic aneurysm, arthritis, atrial fibrillation, COPD, coronary artery disease, CVA, hyperlipidemia, hypertension, kidney stones, myocardial infarction, peripheral artery disease, renal disease, TIA, venous stasis, other Psychiatric history: no psych history, other - Past Surgical History Surgical History: cholecystectomy - Social History Smoking Status: Current every day smoker Packs per day: 1ppd Smokeless Tobacco Status: No Alcohol use: none Drug use: none - Family History Mother Adopted: No Living Status: Hx Family Cardiac Disorders: No Hx Family Respiratory Disorders: No Hx Family Cancer: No Hx Family GI Disorders: No Hx Family Endocrine Disorder: No Hx Family Neuromuscular Disorders: No Hx Family Neurologic Disorders: No Hx Family HEENT Disorders: No Hx Family Autoimmune Disorders: No Father Adopted: No Living Status: Hx Family Cardiac Disorders: Yes (heart attack) Hx Family Respiratory Disorders: No Hx Family Cancer: No Hx Family GI Disorders: No Hx Family Endocrine Disorder: No Hx Family Neuromuscular Disorders: No Hx Family Neurologic Disorders: No Hx Family HEENT Disorders: No Hx Family Autoimmune Disorders: No Brother Adopted: No Living Status: Still Living Hx Family Cardiac Disorders: No Hx Family Respiratory Disorders: No Hx Family Cancer: No Hx Family GI Disorders: No Hx Family Endocrine Disorder: No Hx Family Neuromuscular Disorders: No Hx Family Neurologic Disorders: No Hx Family HEENT Disorders: No Hx Family Autoimmune Disorders: No Sister Living Status: Hx Family Cardiac Disorders: No Hx Family Respiratory Disorders: No Hx Family Cancer: Yes (breast cancer) Hx Family GI Disorders: No Hx Family Endocrine Disorder: No Hx Family Neuromuscular Disorders: No Hx Family Neurologic Disorders: No Hx Family HEENT Disorders: No Hx Family Autoimmune Disorders: No Medications and Allergies Furosemide [Lasix] 20 mg PO BID 02/29/16 [History] Simvastatin [Zocor] 20 mg PO HS 02/29/16 [History] Tamsulosin HCl [Flomax] 0.4 mg PO DAILY 02/29/16 [History] Apixaban [Eliquis] 2.5 mg PO BID #30 tablet 03/01/16 [Rx] Nitroglycerin [Nitrostat] 0.4 mg SL AD PRN 04/12/16 [History] Finasteride [Proscar] 5 mg PO DAILY 10/02/17 [History] Clopidogrel [Plavix] 75 mg PO DAILY #30 tablet 10/16/17 [Rx] Spironolactone [Aldactone] 25 mg PO BID 10/16/17 [History] Aspirin 81 mg PO DAILY 10/24/17 [History] 3 Allergy/AdvReac Type Severity Reaction Status Date / Time No Known Allergies Allergy Verified 02/29/16 08:03 All Systems Review: The remainder of the systems were reviewed and are negative - Cardiovascular Cardiovascular: as per HPI, claudication Physical Examination Vital Signs, Last 4 Hours Temp Pulse Resp BP Pulse Ox 10/25/17 10:26 53 18 94/51 98 10/25/17 09:00 67 21 111/57 97 10/25/17 08:03 64 10/25/17 08:00 64 17 122/34 99 10/25/17 07:45 97.4 F L General: Conversant, No Apparent Distress HEENT: Atraumatic, Normocephaly, Mucus Membranes Moist Neck: No JVD, Normal carotid pulses Cardiac: Normal S1 and S2, Other (Irregularly irregular. Diastolic murmur noted. ) Lungs: Other (Patient refused respiratory assessment due to pain. ) Neuro: Alert and responsive, No focal deficits noted Abdomen: Soft, Non-Tender Skin: No rashes noted on visualized skin Musculoskeletal: No Chest Wall Tenderness Extremities: No Clubbing, No Cyanosis, No Edema, Normal Pulses (Bilateral pulses palpable. ) Results 10/25/17 03:15 10/25/17 08:00 Lab Results Impressions Chest X-Ray 10/24/17 22:19 IMPRESSION: 1. Tip of the central line overlies the SVC. No pneumothorax identified. D/ / 10/25/2017 06:53:53 Adi Duarte MD / [email or web address] Interpreting Provider: Adi Duarte MD Chest X-Ray 10/25/17 10:22 IMPRESSION: No acute process. D/ / Andry Grajeda MD / Andry Grajeda MD Interpreting Provider: Andry Grajeda MD Active Medications Acetaminophen (Tylenol) 650 mg PO Q6HR PRN PRN Reason: Mild Pain/Fever Stop: 04/25/18 15:34 Hydrocodone Bitart/Acetaminophen ([place] 5-325 Mg) 1 tab PO Q6HR PRN PRN Reason: Moderate Pain Stop: 04/25/18 15:34 Apixaban (Eliquis) 2.5 mg PO BID [facility] Stop: 04/26/18 11:01 Clopidogrel Bisulfate (Plavix) 75 mg PO DAILY [facility] Stop: 04/26/18 09:01 Last Admin: 10/25/17 08:22 Dose: 75 mg Finasteride (Proscar) 5 mg PO DAILY [facility] PRN Reason: Protocol Stop: 04/26/18 09:01 Last Admin: 10/25/17 08:21 Dose: 5 mg Furosemide (Lasix) 20 mg PO BID [facility] Stop: 04/25/18 21:01 Last Admin: 10/25/17 08:21 Dose: 20 mg Hydralazine HCl (Hydralazine) 10 mg IVP Q1H PRN PRN Reason: Hypertension Stop: 04/25/18 15:34 Cefazolin Sodium (Ancef Premix 2,000 Mg/100 Ml) 2,000 mg in 100 mls @ 200 mls/ hr IVPB Q8HR [facility] Stop: 04/25/18 16:01 Last Admin: 10/25/17 07:49 Dose: 200 mls/hr Phenylephrine HCl 10 mg/ (Dextrose) 251 mls @ 60.24 mls/hr IVC CONT [facility]; 40 MCG /MIN PRN Reason: Protocol Stop: 04/25/18 23:01 Last Admin: 10/25/17 10:11 Dose: 40 mcg/min, 60.24 mls/hr Sodium Chloride (0.9 % Sodium Chloride) 1,000 mls @ 100 mls/hr IVC .Q10H [facility] Stop: 04/26/18 05:01 Last Admin: 10/25/17 05:27 Dose: 100 mls/hr Labetalol HCl (Labetalol) 10 mg IVP Q1H PRN PRN Reason: SBP greater than 160 Stop: 04/25/18 15:34 Metoprolol Tartrate (Lopressor) 5 mg IVP Q6HR [facility] Stop: 04/25/18 18:01 Last Admin: 10/25/17 04:59 Dose: Not Given Naloxone HCl (Narcan) 0.4 mg IVP Q2MIN PRN PRN Reason: SEE COMMENTS Stop: 04/25/18 15:34 Nitroglycerin (Nitroglycerin) 0.4 mg SL AD PRN PRN Reason: Chest Pain Stop: 04/25/18 15:34 Ondansetron HCl (Zofran) 4 mg IVP Q8HR PRN PRN Reason: Nausea And Vomiting Stop: 04/25/18 15:34 Oxycodone HCl (Oxycodone Oral Conc) 5 mg SL Q4H PRN; Protocol PRN Reason: mild to moderate pain Stop: 04/25/18 15:34 Oxycodone HCl (Oxycodone Oral Conc) 10 mg SL Q4H PRN; Protocol PRN Reason: Severe Pain Stop: 04/25/18 15:34 Simvastatin (Zocor) 20 mg PO HS [facility] PRN Reason: Protocol Stop: 04/25/18 21:01 Spironolactone (Aldactone) 25 mg PO BID [facility] Stop: 04/25/18 21:01 Last Admin: 10/25/17 04:55 Dose: Not Given Tamsulosin HCl (Flomax) 0.4 mg PO DAILY [facility] PRN Reason: Protocol Stop: 04/26/18 09:01 Last Admin: 10/25/17 08:21 Dose: 0.4 mg Laboratory Tests 10/24/17 10/24/17 10/25/17 14:15 15:33 03:15 WBC 15.0 H Hgb 10.2 L Creatinine 1.79 H Troponin I < 0.03 10/25/17 03:15 WBC Hgb Creatinine 1.66 H Troponin I - Imaging and Cardiology Chest Xray: report reviewed Stress Test: report reviewed Echo: pending, report reviewed - EKG Interpretation EKG results cardiology: personally reviewed (ECG reviewed with with a.fib, HR 64, RBBB.), other (Telemetry reviewed with average HR previous 12 hours noted to be 64, a.fib. PVCs noted) Consult Discharge Plan - Plan Referrals: Ye Guzman MD [Partnered Physician] - 11/25/17 2:50 pm [facility]PC[facility] [Primary Care Provider] - 10/30/17 10:45 am
[2017-10-25] MEDS: Apixaban 5 MG TABLET PO SCH (12:18)
[2017-10-25] MEDS ORDERED: 0.9 % Sodium Chloride 500 ML IVC ONE (15:13)
[2017-10-25 15:36] LABS: Hemoglobin 9.5 g/dL (12.9-16.9)
[2017-10-25 15:37] LABS: VBG Ionized Calcium 1.24 mmol/L (1.15-1.35)
[2017-10-25] MEDS: Nicotine 21 MG PATCH.TD24 TD SCH (15:53)
[2017-10-25 15:54] LABS: Calcium 8.7 mg/dL (8.6-10.3); Magnesium 1.8 mg/dL (1.6-2.6); Potassium 4.6 mEq/L (3.5-5.1)
--- NOTE | 2017-10-25 16:30 | Pulmonology Consult Note ---
<GiovannyAshu M - Last Filed: 10/25/17 16:41> Date of Encounter: 10/25/17 Medications and Allergies Furosemide [Lasix] 20 mg PO BID 02/29/16 [History] Simvastatin [Zocor] 20 mg PO HS 02/29/16 [History] Tamsulosin HCl [Flomax] 0.4 mg PO DAILY 02/29/16 [History] Apixaban [Eliquis] 2.5 mg PO BID #30 tablet 03/01/16 [Rx] Nitroglycerin [Nitrostat] 0.4 mg SL AD PRN 04/12/16 [History] Finasteride [Proscar] 5 mg PO DAILY 10/02/17 [History] Clopidogrel [Plavix] 75 mg PO DAILY #30 tablet 10/16/17 [Rx] Spironolactone [Aldactone] 25 mg PO BID 10/16/17 [History] Aspirin 81 mg PO DAILY 10/24/17 [History] 3 Allergy/AdvReac Type Severity Reaction Status Date / Time No Known Allergies Allergy Verified 02/29/16 08:03 All Systems: The remainder of the systems were reviewed and are negative Physical Examination Vital Signs: Vital Signs, Last 4 Hours Temp Pulse Resp BP Pulse Ox 10/25/17 16:09 98.8 F 10/25/17 15:00 54 16 100/51 99 10/25/17 14:00 56 16 96/46 99 10/25/17 13:00 54 18 102/55 97 Results - Laboratory Findings CBC and BMP: 10/25/17 15:04 10/25/17 15:04 ABG ABG pH 7.33 pH Units (7.32-7.45) 10/24/17 11:43 ABG pCO2 45 mmHg (35-45) 10/24/17 11:43 ABG pO2 260 mmHg (85-104) H 10/24/17 11:43 ABG O2 Saturation 100 % (95-98) H 10/24/17 11:43 PT/INR, D-dimer PT 13.9 Seconds (9.4-12.1) H 10/24/17 15:33 Abnormal lab findings: Abnormal lab results WBC 15.0 K/mcL (4.3-11.1) H 10/25/17 03:15 RBC 3.32 M/mcL (4.19-5.50) L 10/25/17 03:15 Hgb 9.5 g/dL (12.9-16.9) L 10/25/17 15:04 Hct 28.0 % (37.5-50.1) L 10/25/17 15:04 Plt Count 138 K/mcL (140-400) L 10/25/17 03:15 Neutrophils # 12.2 K/mcL (1.6-8.9) H 10/25/17 03:15 PT 13.9 Seconds (9.4-12.1) H 10/24/17 15:33 ABG pO2 260 mmHg (85-104) H 10/24/17 11:43 ABG O2 Saturation 100 % (95-98) H 10/24/17 11:43 ABG Base Excess -3 mEq/L (-2 to 3) L 10/24/17 11:43 ABG Hematocrit 34.0 % (37.5-50.1) L 10/24/17 11:43 ABG Chloride 109 mEq/L (98-107) H 10/24/17 11:43 Glucose 105 mg/dL (60-95) H 10/24/17 11:43 Sodium 133 mEq/L (136-145) L 10/25/17 15:04 BUN 31 mg/dL (8-23) H 10/25/17 15:04 Creatinine 1.62 mg/dL (0.70-1.30) H 10/25/17 15:04 Est GFR ( Amer) 50 (> 60) L 10/25/17 15:04 Est GFR (Non-Af Amer) 41 (> 60) L 10/25/17 15:04 Glucose 123 mg/dL (70-105) H 10/25/17 15:04 POC Glucose 127 mg/dL (70-99) H 10/24/17 22:54 - Clinical Findings Intake & Output: Intake & Output 10/25/17 10/25/17 10/25/17 07:59 15:59 23:59 Intake Total 319 / 319 1532 / 1532 Output Total 1250 / 1250 850 / 850 650 / 650 Balance -931 / -931 682 / 682 -650 / -650 Consult Discharge Plan - Plan Referrals: Ye Guzman MD [Partnered Physician] - 11/25/17 2:50 pm ME,PCP [Primary Care Provider] - 10/30/17 10:45 am - Attending Attestation I examined this patient and my medical decision-making was reviewed with the Resident Physician. I agree with the documented findings, disposition and treatment plan as described except to the extent set forth below. Patient seen and examined. Labs, radiology, chart personally reviewed. Agree with resident's history and physical, assessment, plan with following comments: STREAMING MEDIA SPECIALIST: Patient follows commands, Pulmonary: Acceptable oxygenation and ventilation Cardiovascular: Patient with shock and I suspect this is cardiogenic. I will change pressors the dopamine since patient has bradycardia and reviewed 12-lead EKG with crnp Dr. Johnson who agreed with plan of care and hopefully that will help his blood pressure and also his bradycardia. I suspect patient have sick sinus syndrome and may need the pacemaker. GI: Nutrition per dietary and GI prophylaxis per routine Heme: DVT prophylaxis per routine Renal; urine out put and renal funtion reviewed Endorcine: blood glucose is monitored Lines: all lines checked and no evidence of infections Skin: skin care to prevent pressure ulcers per nursing routine care I spent 35 min of Critical Care time with this patient. It involved decision making of high complexity to assess, manipulate, and support vital organ system failure and/or to prevent further life threatening deterioration of the patient' s condition. The time involved in the performance of separately reportable procedures was not counted toward critical care time. <Gene Giraldo - Last Filed: 10/25/17 17:17> Date of Encounter: 10/25/17 Time of Encounter: 16:27 Assessment and Plan (1) Bradycardia Current Visit: Yes Status: Acute Cardiology reviewed the 12-lead EKG and recommends slow A. fib. Patient's EKG is low voltage. Appears to be irregular. However concerns for sick sinus and may possibly require pacemaker. K 4.6 PLAN: -Continue on telemetry. daily BMP -Given the patient's bradycardia with episodes of hypotension patient will be started on dopamine. This was confirmed with cardiology who also agree. -Appreciate cardiology recommendations. No need for PPM at this time per Cards. (2) Hypotension Current Visit: No Status: Acute Patient has documented hypotensive blood pressures. Patient was requiring phenylephrine. Concerns for likely cardiogenic etiology. PLAN - As above with dopamine. - Titrate as needed. - Patient continues to have good distal peripheral pulses. Continue to monitor. - Echo pending - Troponin pending Qualifiers: Hypotension type: unspecified hypotension type Qualified Code(s): I95.9 - Hypotension, unspecified (3) Peripheral vascular disease Current Visit: Yes Status: Acute Postop from a femoropopliteal bypass with resection of right femoral aneurysm. Management per vascular surgery (4) Tobacco abuse Current Visit: Yes Status: Acute Smoking cessation discussed. Nicotine patch. Duonebs when necessary History of Present Illness Consult date: 10/25/17 Requesting physician: Ye Gumzan Reason for consult: other (critical care managment) Chief complaint: leg pain History of present illness: 77-year-old male who is postop from a right femoropopliteal bypass remains in intensive care for critical care management and monitoring. Patient was admitted for this procedure. Patient states he has had a history of stents in his legs. Patient denies any shortness of breath or chest pain. Patient states he is a current smoker. Patient does not require home oxygen. Briefly, the patient did have an episode this morning where he required chest compressions as well as a dose of epinephrine. It was unclear at that time whether the patient was not PEA or a long pause. Patient denies having a cardiac history with stents. Patient does state that he has have history of A. fib on [place]. Past Med Surg Social Fam HX - Past Medical History Medical history: aortic aneurysm, arthritis, atrial fibrillation, COPD, coronary artery disease, CVA, hyperlipidemia, hypertension, kidney stones, myocardial infarction, peripheral artery disease, renal disease, TIA, venous stasis, other Psychiatric history: no psych history, other - Past Surgical History Surgical History: cholecystectomy - Social History Smoking Status: Current every day smoker Packs per day: 1ppd Smokeless Tobacco Status: No Alcohol use: none Drug use: none - Family History Mother Adopted: No Living Status: Hx Family Cardiac Disorders: No Hx Family Respiratory Disorders: No Hx Family Cancer: No Hx Family GI Disorders: No Hx Family Endocrine Disorder: No Hx Family Neuromuscular Disorders: No Hx Family Neurologic Disorders: No Hx Family HEENT Disorders: No Hx Family Autoimmune Disorders: No Father Adopted: No Living Status: Hx Family Cardiac Disorders: Yes (heart attack) Hx Family Respiratory Disorders: No Hx Family Cancer: No Hx Family GI Disorders: No Hx Family Endocrine Disorder: No Hx Family Neuromuscular Disorders: No Hx Family Neurologic Disorders: No Hx Family HEENT Disorders: No Hx Family Autoimmune Disorders: No Brother Adopted: No Living Status: Still Living Hx Family Cardiac Disorders: No Hx Family Respiratory Disorders: No Hx Family Cancer: No Hx Family GI Disorders: No Hx Family Endocrine Disorder: No Hx Family Neuromuscular Disorders: No Hx Family Neurologic Disorders: No Hx Family HEENT Disorders: No Hx Family Autoimmune Disorders: No Sister Living Status: Hx Family Cardiac Disorders: No Hx Family Respiratory Disorders: No Hx Family Cancer: Yes (breast cancer) Hx Family GI Disorders: No Hx Family Endocrine Disorder: No Hx Family Neuromuscular Disorders: No Hx Family Neurologic Disorders: No Hx Family HEENT Disorders: No Hx Family Autoimmune Disorders: No All Systems: The remainder of the systems were reviewed and are negative - Constitutional Constitutional: as per HPI - Cardiovascular Cardiovascular: as per HPI, no chest pain - Respiratory Respiratory: as per HPI, no dyspnea - Gastrointestinal Gastrointestinal: as per HPI - Genitourinary Genitourinary: as per HPI - Musculoskeletal Musculoskeletal: joint pain Physical Examination Vital Signs: Vital Signs, Last 4 Hours Temp Pulse Resp BP Pulse Ox 10/25/17 16:09 98.8 F 10/25/17 15:00 54 16 100/51 99 10/25/17 14:00 56 16 96/46 99 10/25/17 13:00 54 18 102/55 97 General appearance: no acute distress Eyes: nonicteric ENT: oropharynx moist Neck: supple Effort: normal Inspection: normal Auscultation: bilateral: wheezes (expiratory) Cardiovascular: other (Bradycardia) Gastrointestinal: normoactive bowel sounds Integumentary: normal Extremities: no cyanosis, other (Peripheral pulses intact. Dressings applied to the right lower leg.) normal mental status, non-focal exam mood appropriate Results - Laboratory Findings CBC and BMP: 10/25/17 15:04 10/25/17 15:04 ABG ABG pH 7.33 pH Units (7.32-7.45) 10/24/17 11:43 ABG pCO2 45 mmHg (35-45) 10/24/17 11:43 ABG pO2 260 mmHg (85-104) H 10/24/17 11:43 ABG O2 Saturation 100 % (95-98) H 10/24/17 11:43 PT/INR, D-dimer PT 13.9 Seconds (9.4-12.1) H 10/24/17 15:33 Abnormal lab findings: Abnormal lab results WBC 15.0 K/mcL (4.3-11.1) H 10/25/17 03:15 RBC 3.32 M/mcL (4.19-5.50) L 10/25/17 03:15 Hgb 9.5 g/dL (12.9-16.9) L 10/25/17 15:04 Hct 28.0 % (37.5-50.1) L 10/25/17 15:04 Plt Count 138 K/mcL (140-400) L 10/25/17 03:15 Neutrophils # 12.2 K/mcL (1.6-8.9) H 10/25/17 03:15 PT 13.9 Seconds (9.4-12.1) H 10/24/17 15:33 ABG pO2 260 mmHg (85-104) H 10/24/17 11:43 ABG O2 Saturation 100 % (95-98) H 10/24/17 11:43 ABG Base Excess -3 mEq/L (-2 to 3) L 10/24/17 11:43 ABG Hematocrit 34.0 % (37.5-50.1) L 10/24/17 11:43 ABG Chloride 109 mEq/L (98-107) H 10/24/17 11:43 Glucose 105 mg/dL (60-95) H 10/24/17 11:43 Sodium 133 mEq/L (136-145) L 10/25/17 15:04 BUN 31 mg/dL (8-23) H 10/25/17 15:04 Creatinine 1.62 mg/dL (0.70-1.30) H 10/25/17 15:04 Est GFR ( Amer) 50 (> 60) L 10/25/17 15:04 Est GFR (Non-Af Amer) 41 (> 60) L 10/25/17 15:04 Glucose 123 mg/dL (70-105) H 10/25/17 15:04 POC Glucose 127 mg/dL (70-99) H 10/24/17 22:54 - Clinical Findings Intake & Output: Intake & Output 10/25/17 10/25/17 10/25/17 07:59 15:59 23:59 Intake Total 319 / 319 1532 / 1532 Output Total 1250 / 1250 850 / 850 650 / 650 Balance -931 / -931 682 / 682 -650 / -650
[2017-10-25] MEDS ORDERED: Ipratropium/Albuterol Neb 3 ML IH PRN (16:37)
[2017-10-25] MEDS: Ondansetron 4 MG/2 ML VIAL IVP PRN (17:11)
[2017-10-25] MEDS ORDERED: Potassium Chloride 10 MEQ in 0.9 % Sodium Chloride 100 ML IVPB PRN (17:18)
[2017-10-25] MEDS ORDERED: Aspirin 81 MG TAB.CHEW PO SCH (18:45)
[2017-10-25] MEDS ORDERED: Aspirin 325 MG TABLET PO ONE (18:47)
[2017-10-25] MEDS ORDERED: Heparin 1,000 UNITS/500 mL 500 ML ONE ×2 (18:52→21:18)
[2017-10-25] MEDS ORDERED: 0.9 % Sodium Chloride 1,000 ML ONE ×2 (18:52→19:24)
[2017-10-25] MEDS ORDERED: *HR* Heparin 10,000 UNIT/10 ML VIAL ONE (18:52)
[2017-10-25] MEDS ORDERED: ISOVUE-370 200 ML INFUS..BTL IV ONE ×2 (18:53→19:43)
[2017-10-25] MEDS ORDERED: Nitroglycerin 1,000 MCG/10 ML VIAL IV ONE (18:53)
[2017-10-25] MEDS ORDERED: Verapamil 5 MG/2 ML VIAL ONE (19:05)
[2017-10-25] MEDS ORDERED: *HR* Midazolam HCl 2 MG/2 ML VIAL ONE (19:24)
[2017-10-25] MEDS ORDERED: Ondansetron 4 MG/2 ML VIAL ONE ×2 (19:24→19:28)
[2017-10-25] MEDS ORDERED: *HR* FentaNYL (PF) 100 MCG/2 ML VIAL ONE (19:24)
--- NOTE | 2017-10-25 19:28 | Pre-Sedation Evaluation ---
Pre-sedation evaluation - Pre-sedation checklist Date of procedure: 10/24/17 Procedure: [facility] Recent Vitals: Last Vital Signs Temp 97.6 F 10/25/17 18:59 Pulse 99 10/25/17 19:00 Resp 22 10/25/17 19:00 BP 90/45 10/25/17 19:00 Pulse Ox 91 10/25/17 19:00 H&P (including ROS) documented in medical record: Yes Previous reaction to sedatives/anesthetics: No Dietary Status: unknown Dentition: No loose teeth or bridges ASA Classification *see protocol: CLASS II-Mild systemic disease, E-EMERGENCY- Add to any of the above to indicate emergent Plan of Care: Pt appropriate candidate for procedure/moderate/conscious sedation , Risks/benefits of procedure/sedation discussed w/ patient/family, If not NPO; Risk of intake outweiged by necessity to perform procedure
[2017-10-25] MEDS ORDERED: Tirofiban 12.5 MG/250ML 12.5 MG/250 ML BAG ONE (19:35)
[2017-10-25] MEDS ORDERED: *HR* Phenylephrine 10 MG/ML VIAL ONE ×2 (19:49→19:52)
[2017-10-25] MEDS ORDERED: 0.9 % Sodium Chloride 250 ML ONE (19:52)
[2017-10-25] MEDS ORDERED: FentaNYL (PF) 1,000 MCG in 0.9 % Sodium Chloride 80 ML IVC SCH (20:30)
[2017-10-25] MEDS ORDERED: *HR* Atropine Sulfate 1 MG/10 ML SYRINGE ONE (21:36)
[2017-10-25] MEDS: Tirofiban 12.5 MG/250ML 12.5 MG/250 ML BAG IVC SCH ×2 (21:55)
--- NOTE | 2017-10-25 22:30 | Invasive Diagnostic Lab Proc ---
Name: Stewart Sims Date of Study: 10/25/2017 Date: 1940 Ht: 70.9in Medical Record#: [id number] Age: 77 Wt: 176.37lb Gender: Male BSA: 2. Order #: [id number] BMI: 24.69 Physicians Procedure Physician: Seng Johnson MD, [facility] Referring MD: Referring MD: Staff Name Position Time In Jose De Jesus Muniz RT (R) Scrub 07:25 PM Christina Matthews RT (R) Monitor 07:25 PM Ginette Estrada RN Riveter Helper 07:25 PM Alberto Lolis RT (R) 07:26 PM Princess Dacosta RT 07:26 PM Indications Indication STEMI Procedures Performed Procedure L HRT ARTERY/VENTRICLE ANGIO PRQ CARD REVASC VA 1 VSL Pre-Procedure Checklist Informed consent is complete signed and on chart. H&P is on chart. ID band is on and ID verified with patient. Patient NPO for procedure The procedure was described for the patient and questions were answered. Blood Pressure: 120/58 ECG is on chart. Plan of Care Patient will tolerate the procedure without complications. Adequate level of comfort will be maintained. Hemodynamics will remain stable Patient will recover from procedure without complications. Respiratory function will be maintained. Cardiac rhythm will remain stable. Patient temperature will be maintained. Patient and/or family have verbalized understanding of the procedure. Patient Education Chief Complaint/Reason for Test: Cardiac Cath Developmental Category: Geriatric (65+ years) Developmentally Appropriate for Age: Yes Learning Barriers: None Education Needs: Procedure Education Method: Verbal Information Taught: Cardiac Cath Educational Evaluation: Able to repeat information Intravenous Access Time IV Size Location DC'd Fluid/Drip Rate Units RN 07:24 PM Central Line Rt Jugular Dopamine 6 mcg/kg/min Ginette Estrada RN 07:24 PM Triple Lumen Lt Antecubital 07:24 PM Triple Lumen Lt Wrist Allergies No Known Allergies Vital Signs Time BP (mmHg) HR (bpm) O2 Sat. RR (bpm) LOC 07:31 PM / % 4 = Oriented but drowsy 07:31 PM / % 4 = Oriented but drowsy 07:46 PM / % 4 = Oriented but drowsy 08:07 PM / % 1 = Reflexes present/moves spontaneously 08:23 PM / % 1 = Reflexes present/moves spontaneously 08:38 PM / % 1 = Reflexes present/moves spontaneously 08:53 PM / % 1 = Reflexes present/moves spontaneously 09:08 PM / % 1 = Reflexes present/moves spontaneously 09:23 PM / % 1 = Reflexes present/moves spontaneously 08:03 PM 124 / 75 133 98 % 08:08 PM 132 / 74 129 % 08:13 PM 115 / 67 121 95 % 08:18 PM 99 / 64 130 % 08:23 PM 118 / 70 135 % 08:28 PM 112 / 60 120 90 % 08:33 PM 123 / 68 115 % 08:38 PM 125 / 77 126 91 % 08:43 PM 130 / 75 139 90 % 08:43 PM 104 / 67 126 % 09:33 PM 136 / 69 104 % 09:34 PM 127 / 70 92 % 09:38 PM 101 / 58 100 % 09:43 PM 86 / 54 79 % 09:44 PM 82 / 50 % 07:23 PM 120 / 58 81 91 % 07:33 PM 120 / 67 100 92 % 07:38 PM 104 / 59 100 % 07:43 PM 97 / 53 101 % 07:46 PM 105 / 56 97 91 % 07:48 PM 101 / 61 105 91 % 07:53 PM 115 / 66 100 % 07:58 PM 111 / 59 89 91 % 08:48 PM 102 / 53 50 92 % 08:49 PM 107 / 52 46 91 % 08:53 PM 107 / 51 51 92 % 08:58 PM 106 / 51 50 88 % 09:03 PM 106 / 51 49 84 % 09:08 PM 132 / 80 80 99 % 09:13 PM 109 / 68 111 94 % 09:18 PM 107 / 72 101 99 % 09:23 PM 153 / 89 119 99 % 09:28 PM 149 / 78 105 80 % 09:39 PM / % 1 = Reflexes present/moves spontaneously Procedural Medications Time Medication Dose Units Method Given By 07:25 PM Zofran 4 mg Intravenous NatalieGinette mcmahon RN 07:26 PM Oxygen 6 L/min nasal cannula Sites, Lolis RT (R) 07:26 PM Versed 2 mg Intravenous NatalieGinette RN 07:27 PM Fentanyl 25 mcg Intravenous [place], Ginette ROBIN 07:32 PM Oxygen 10 L/min Oxy Mask Ginette Estrada RN 07:32 PM Lidocaine 2% 0.5 ml Subcutaneous Seng Johnson MD, FACC 07:40 PM Aggrastat Bolus: 42 ml Intravenous Natalie, Ginette RN 07:43 PM Dopamine 10 mcg/kg/min Intravenous Natalie, Ginette RN 07:44 PM Oxygen 8 L/min Oxy Mask Natalie, Ginette RN 07:48 PM Heparin 4000 units Nitroglycerin 200 mcg Verapamil 2.5 mg Intraarterial Seng Johnson MD, FACC 07:50 PM Heparin 2000 units Intravenous Natalie, Ginette ROBIN 07:55 PM Versed 2 mg Intravenous Natalie, Ginette RN 07:58 PM Versed 2 mg Intravenous [place], Ginette RN 07:58 PM 0.9NaCl 25 ml/hr Intravenous [place], Ginette RN 08:06 PM Rocuronium 80 mg Intravenous [place], Ginette RN 08:07 PM Rocuronium 20 mg Intravenous Natalie, Ginette RN 07:48 PM Dopamine 15 mcg/kg/min Intravenous [place], Ginette ROBIN 08:20 PM Oxygen 40 % mechanical ventilator Respiratory 08:22 PM versed 4 ml/hr Intravenous [place], Ginette ROBIN 08:26 PM Dopamine 10 mcg/kg/min Intravenous [place], Ginette ROBIN 08:34 PM Fentanyl 25 mcg/hr Intravenous Natalie, Ginette RN 08:41 PM Dopamine 6 mcg/kg/min Intravenous Natalie, Ginette RN 08:47 PM Dopamine 10 mcg/kg/min Intravenous Natalie, Ginette RN 08:52 PM Dopamine 15 mcg/kg/min Intravenous Natalie, Ginette RN 08:59 PM Fentanyl 50 mcg/hr Intravenous Natalie, Ginette RN 09:13 PM Dopamine 10 mcg/kg/min Intravenous Natalie, Ginette RN 09:15 PM Heparin 2000 units Intravenous [place], Ginette RN 09:22 PM Dopamine 6 mcg/kg/min Intravenous [place], Ginette ROBIN 07:41 PM Aggrastat 12.5mg/250ml 7.2 ml/hr Intravenous Natalie, Ginette ROBIN Antoni Score Preprocedure Postprocedure Activity 2- Moves 4 extremities sustained head lift Activity 0- Unable to move extremities or lift head Circulation 2- SBP +/= 20 points of pre-anesthetic level Circulation 2- SBP +/= 20 points of pre-anesthetic level Consciousness 2- Awake and alert oriented x 3 Consciousness 0- Non-responsive O2 Saturation 2- Able to maintain O2 satruation of 92% on room air O2 Saturation 0- O2 saturation 90% even with O2 supplement Respiratory 2- Able to deep breathe and cough well Respiratory 0- Apneic requires ventilator or assisted respiration Total Score 10 Total Score 2 Contrast Agent: Isovue Diagnostic Contrast: 220 ml Total Contrast: 220 ml Fluoro Dose: 2733 mGy Activated Clotting Time Time Seconds to Clot 07:47 PM 212 08:19 PM 400 09:14 PM 243 Procedure Log Time Note Enter By 07:16 PM Pt arrived to dental laboratory assistant 2 at 19:16 [email or web address] 07:16 PM Patient charges- Angio tray pack, Navilyst 3mm J, Pulse Oximetry and ACIST tubing and transducer [email or web address] 07:22 PM CathStat 07:22 PM Vitals capture started with the following parameters, Patient=Adult, Interval=5 min, Initial Jnjzvykf=609 mmHg, Deflation Rate=5 mmHg, Cuff placed on Right Arm 07:23 PM HR=81 bpm, TUSF=823/58 mmhg, SpO2=91.0 % 07:25 PM Case Start 07:25 PM IV Supplies used: J loop Angio Cath. kk 07:25 PM Jose De Jesus Muniz RT (R) Position: Scrub Time in: 19:25 07:25 PM Christina Matthews RT (R) Position: Monitor Time in: 19:25 07:25 PM Ginette Estrada RN Position: Riveter Helper Time in: 19:25 07:25 PM Physician arrived 19:25 07:25 PM Meet and iva completed 07:25 PM Sign in performed according to hospital policy. 07:25 PM Procedure start 19:25 07:26 PM Time: 19:25 Zofran 8 mg Intravenous Given by Ginette Estrada RN : PM Time: 19:26 Oxygen on at 6 L/min per nasal cannula by Lolis Dominguez RT (R) 07:26 PM Lolis Dominguez RT (R) Position: Time in: : 07: PM Princess Dacosta RT Position: Time in: :: PM Time: 19:26 Versed 2 mg Intravenous Given by Ginette Estrada RN ricci 07:27 PM Time: 19:27 Fentanyl 25 mcg Intravenous Given by Ginette Estrada RN ricci 07:28 PM Hair removed from procedure site in holding area using clippers. Right wrist, left groin prepped with Chloraprep by Jose De Jesus Muniz RT (R), then patient was draped. Skin intact. :29 PM Vitals capture stopped. :31 PM Time: :31 Patient comfortable and pain free: No PM Time: 19:31LOC: 4 = Oriented but drowsy dspell:32 PM Time: 19:32 Oxygen on at 10 L/min per Oxy Mask by Ginette Estrada RN :32 PM Clinical Presentation: STEMI or equivalent dsp:32 PM Time out performed according to hospital policy dsp:32 PM Vitals capture started with the following parameters, Patient=Adult, Interval=5 min, Initial Svgshmni=319 mmHg, Deflation Rate=5 mmHg, Cuff placed on Right Arm :32 PM Time: 19:32 0.5 ml Lidocaine 2% to right radial Subcutaneous Given by Seng Johnson MD, [facility] :33 PM Time: 19:33 Patient given 4,000 units Heparin, 200 mcg Nitroglycerin, and 2.5 mg Verapamil Intraarterial by Seng Johnson MD, [facility]. This is given to reduce risk of vessel spasm and thrombosis. :33 PM PC=259 bpm, PZLM=650/67 mmhg, SpO2=92 % 07:33 PM Access obtained by percutaneous puncture. 6Fr 10cm Terumo Glidesheath sheath placed in right Radial artery. [id number] ell 07:33 PM 6Fr JR 4 Runway guide catheter was used to cannulate the PCI vessel successfully. reused? No :34 PM Inflation device was opened. :34 PM PCI Status Emergency 07:34 PM PCI Indication: PCI for high risk Non-STEMI or unstable angina dspell 07:34 PM Recorded Pressure: Ao, ZV=051, Condition=Condition 1 (Aorta) Ao 101/60/77 07:36 PM unable to engage catheter dspell 07:36 PM 5Fr TIG catheter inserted over the wire DNC dspell 07:38 PM AV=736 bpm, ODHO=544/59 mmhg, Comment=stemi 07:38 PM LCA angiography performed in multiple views. 07:39 PM Catheter removed :40 PM Coronary Dominance: Left dspell 07:40 PM Time: 19:40 Aggrastat Bolus: 42 ml Intravenous Given by Ginette Estrada RN Ann pump [email or web address] 07:41 PM Time: 19:41 Aggrastat 12.5mg/250ml 7.2 ml/hr Intravenous Given by Ginette Estrada RN Ann pump dspell 07:41 PM 6Fr RBL 3.5 Convey guide catheter was used to cannulate the PCI vessel successfully. reused? No dspell 07:42 PM .014 [place] 190cm guide wire across target lesion- successful. reused? No dspell 07:43 PM PT=726 bpm, NIBP=97/53 mmhg, Comment=stemi 07:43 PM Time: 19:43 Dopamine 10 mcg/kg/min Intravenous Given by Ginette Estrada RN Ann pump dspmusa 07:44 PM Time: 19:44 Oxygen on at 8 L/min per Oxy Mask by Ginette Estrada RN dspellchacha 07:45 PM Recorded Pressure: Ao, GG=496, Condition=Condition 1 (Aorta) Ao 86/45/61 07:46 PM Time: 19:31LOC: 4 = Oriented but drowsy dspell 07:46 PM NIBP STAT measurement started. 07:46 PM Time: 19:31 Patient comfortable and pain free: No dspell 07:46 PM HR=97 bpm, RDJM=138/56 mmhg, SpO2=91 % 07:47 PM Guide wire removed intact. dspell 07:47 PM At 19:47 the ACT was 212 seconds. dspell 07:48 PM Time: 19:48 Dopamine 15 mcg/kg/min Intravenous Given by Ginette Estrada RN Ann pump dspell 07:48 PM UC=936 bpm, SNQU=444/61 mmhg, SpO2=91 % 07:49 PM .014 PT [employer]ix 300cm guide wire across target lesion- successful. reused? No dspell 07:49 PM 2.0 mm x 15 mm Emerge OTW balloon across target lesion- successful. reused? No dspell 07:50 PM Time: 19:50 Heparin 2000 units Intravenous Given by Ginette Estrada RN dspellchacha 07:50 PM Recorded Pressure: Ao, VC=342, Condition=Condition 1 (Aorta) Ao 93/75/84 07:51 PM Respiratory called. dspell 07:52 PM Time: 19:46LOC: 4 = Oriented but drowsy dspell 07:53 PM MD=859 bpm, XSDA=968/66 mmhg, Comment=stemi 07:53 PM Time: 19:46 Patient comfortable and pain free: No ell 07:53 PM Respiratory at bedside, pt requested intubation dspell 07:54 PM Balloon catheter removed intact, unable to advance to lesion dspell 07:54 PM Guide wire removed intact to reshape dspell 07:55 PM Wire repositioned to Circumflex dspell 07:55 PM Time: 19:55 Versed 2 mg Intravenous Given by Ginette Estrada RN dspmatt 07:56 PM wire and balloon out, respiratory attempting intubation dspell 07:57 PM Assiting respiration with ambu bag dspell 07:58 PM HR=89 bpm, BBQR=656/59 mmhg, SpO2=91 % 07:58 PM Time: 19:58 Versed 2 mg Intravenous Given by Ginette Estrada RN matt 07:59 PM Time: 19:58 0.9NaCl 25 ml/hr Intravenous Given by Ginette Estrada RN Left AC dspell 08:00 PM Recorded Pressure: Ao, HD=946, Condition=Condition 1 (Aorta) Ao 105/86/96 08:01 PM Dentures removed dspell 08:02 PM NIBP STAT measurement started. 08:03 PM JD=752 bpm, NELZ=694/75 mmhg, SpO2=98 % 08:03 PM Guide catheter removed intact. ell 08:04 PM INTUBATED orally WITH # 7.5Tube Size, positive color change with capnography, SATs 98% dspell 08:04 PM ET TUBE PLACEMENT CONFIRMED BY =, AUSCULTATION dspell 08:04 PM 7.5 ET tube at 26 cm dspell 08:04 PM ECG Rythm: Sinus Tach dspell 08:05 PM 6Fr 3DRC [place] guide catheter was used to cannulate the PCI vessel successfully. reused? No 08:07 PM Time: 20:06 Rocuronium 80 mg Intravenous Given by Ginette Estrada RN dspmatt 08:07 PM Time: 20:07 Rocuronium 20 mg Intravenous Given by Ginette Estrada RN 08:[address] Mechanical ventilator dspell 08:08 PM QE=343 bpm, UUUJ=201/74 mmhg 08:08 PM Time: 19:53 Patient comfortable and pain free: Yes 08:08 PM Time: 20:08 Oxygen on at 40 % per mechanical ventilator by Respiratory. Tidal Volume 550, Rate 14, Peep 5 dspell 08:09 PM Guide catheter removed intact. dsp 08:10 PM 6Fr AR1 Runway guide catheter was used to cannulate the PCI vessel successfully. reused? No dspell 08:10 PM Recorded Pressure: Ao, YZ=304, Condition=Condition 1 (Aorta) Ao 68/0/36 08:11 PM Recorded Pressure: LV, HR=90, Condition=Condition 1 (Left Ventricle) LV 99/18/23 08:11 PM Recorded Pressure: LV, Ao, HR=90, Condition=Condition 1 (Left Ventricle) LV 114/23/30, (Aorta) Ao 98/60/76 08:13 PM CE=188 bpm, MMCB=902/67 mmhg, SpO2=95.0 %, Comment=sinus tach 08:13 PM 5Fr MPA catheter inserted over the wire [id number] dsp 08:14 PM Catheter removed dsp 08:14 PM 6Fr RBL 3.5 Convey guide catheter was used to cannulate the PCI vessel successfully. reused? Yes 08:17 PM ACT drawn 08:17 PM .014 [place] 300cm guide wire across target lesion- successful. reused? No 08:17 PM 2.0 mm x 15 mm Emerge OTW balloon across target lesion- unsuccessful. reused? Yes 08:18 PM PC=312 bpm, NIBP=99/64 mmhg, Comment=sinus tach 08:19 PM At 20:19 the ACT was 400 seconds. 08:19 PM Guide wire removed intact. 08:20 PM .014 PT Graphix 300cm guide wire across target lesion- successful. reused? Yes PM Time: 20:07LOC: 1 = Reflexes present/moves spontaneously dsp: PM Time: 20:08 Patient comfortable and pain free: Yes [facility] PM Time: 20:22 versed 4 ml/hr Intravenous Given by Ginette Estrada RN Ann pump dspellman 08:23 PM YM=650 bpm, FCZF=269/70 mmhg, Comment=sinus tach 08:26 PM Time: 20:26 Dopamine 10 mcg/kg/min Intravenous Given by Ginette Estrada RN Ann pump dspell 08:28 PM HQ=601 bpm, PEJW=326/60 mmhg, SpO2=90.0 %, Comment=sinus tach 08:30 PM Balloon catheter removed intact, unable to advance to lesion dspell 08:31 PM 1.2 mm x 12 mm Counselor Aid Monorail balloon across target lesion- successful. reused? No dspellman 08:31 PM Recorded Pressure: Ao, OS=348, Condition=Condition 1 (Aorta) Ao 106/56/77 08:33 PM CA=713 bpm, CIEN=106/68 mmhg, Comment=sinus tach 08:35 PM Time: 20:34 Fentanyl 25 mcg/hr Intravenous Given by Ginette Estrada RN dspellchacha 08:38 PM LC=723 bpm, TBXG=281/77 mmhg, SpO2=91 % 08:38 PM Time: 20:23LOC: 1 = Reflexes present/moves spontaneously dspell 08:38 PM Paged vascular surgeon boot and saddle repair person dspell 08:39 PM .014 St[employer] Extra Support 300cm guide wire across target lesion- successful. reused? No dspell 08:40 PM Stablilizer Guide wire removed intact. dspell 08:41 PM Time: 20:41 Dopamine 6 mcg/kg/min Intravenous Given by Ginette Estrada RN Ann pump dspell 08:43 PM QD=282 bpm, VVQJ=269/75 mmhg, SpO2=90 %, Comment=sinus tach 08:43 PM NIBP STAT measurement started. 08:43 PM Balloon inflated @ 14 [place] for 16 seconds dspell 08:43 PM NJ=478 bpm, NEJW=468/67 mmhg 08:44 PM Balloon inflated @ 14 liz[place] for 11 seconds dspell 08:45 PM Balloon inflated @ 14 lizbeht for 12 seconds dspell 08:45 PM Balloon catheter removed intact. dspell 08:45 PM ICU called for an update dspellman 08:46 PM Recorded Pressure: Ao, HR=51, Condition=Condition 1 (Aorta) Ao 91/45/56 08:46 PM Rhythm change dspell 08:47 PM Time: 20:47 Dopamine 10 mcg/kg/min Intravenous Given by Ginette Estrada RN Ann pump dspellman 08:47 PM Recorded Pressure: Ao, HR=44, Condition=Condition 1 (Aorta) Ao 86/44/55 08:48 PM HR=50 bpm, TXPX=118/53 mmhg, SpO2=92.0 %, Comment=sinus blessing 08:48 PM 2.0 mm x 15 mm Emerge OTW balloon across target lesion-un successful. reused? Yes dspellman 08:48 PM NIBP STAT measurement started. 08:48 PM Recorded Pressure: Ao, HR=47, Condition=Condition 1 (Aorta) Ao 82/55/68 08:49 PM HR=46 bpm, YPYI=198/52 mmhg, SpO2=91.0 %, Comment=sinus blessing 08:49 PM Balloon catheter removed intact. dspellman 08:50 PM 1.5 mm x 8 mm Emerge OTW balloon across target lesion- successful. reused? No dspellman 08:51 PM Lesion found in Right PDA. Pre Stenosis: Pre BETHANY Flow: dspellman 08:52 PM Time: 20:52 Dopamine 15 mcg/kg/min Intravenous Given by Ginette Estrada RN Ann pump dspellman 08:53 PM Recorded Pressure: Ao, HR=52, Condition=Condition 1 (Aorta) Ao 85/46/66 08:53 PM HR=51 bpm, YBMC=192/51 mmhg, SpO2=92.0 %, Comment=sinus blessing 08:53 PM Time: 20:38 Patient comfortable and pain free: Yes dspellman 08:53 PM Time: 20:38LOC: 1 = Reflexes present/moves spontaneously dspellman 08:54 PM Guide wire removed intact. dspellman 08:54 PM .014 Stabilizer Extra Support 300cm guide wire across target lesion- successful. reused? Yes dspellman 08:54 PM Recorded Pressure: Ao, HR=51, Condition=Condition 1 (Aorta) Ao 89/56/73 08:54 PM Balloon inflated @ 14 [place]iz[place] for 13 seconds dspellman 08:55 PM Balloon inflated @ 14 [place] for 16 seconds dspellman 08:55 PM Balloon inflated @ 14 [place] for 9 seconds dspellman 08:56 PM Balloon inflated @ 14 [place] for 7 seconds dspellman 08:56 PM Balloon catheter removed intact. dspellman 08:58 PM HR=50 bpm, KOGM=020/51 mmhg, SpO2=88.0 %, Comment=sinus blessing 08:58 PM 2.0 mm x 15 mm Emerge OTW balloon across target lesion- successful. reused? Yes dspell 08:59 PM Time: 20:59 Fentanyl 50 mcg/hr Intravenous Given by Ginette Estrada RN dsptrihealthchacha 09:02 PM Vent Settings increased to 80% dspell 09:03 PM Balloon removed, unable to advance to lesion dspellman 09:03 PM HR=49 bpm, PGYX=347/51 mmhg, SpO2=84.0 %, Comment=sinus 09:06 PM 1.5 mm x 8 mm Emerge OTW balloon across target lesion- successful. reused? Yes dspell 09:06 PM Balloon inflated @ 14 [place] for 14 seconds dspell 09:07 PM Balloon inflated @ 20 [place] for 18 seconds dspell 09:07 PM Balloon inflated @ 20 [place] for 30 seconds dspellman 09:08 PM Recorded Pressure: Ao, HR=85, Condition=Condition 1 (Aorta) Ao 113/71/89 09:08 PM HR=80 bpm, CNJR=943/80 mmhg, SpO2=99.0 %, Comment=sinus 09:08 PM Time: 20:53LOC: 1 = Reflexes present/moves spontaneously dspell 09:08 PM Time: 20:53 Patient comfortable and pain free: Yes dspell 09:08 PM Balloon inflated @ 20 lizbeth for 21 seconds dspellman 09:09 PM Paging center said there is no vascular coverage dspellman 09:09 PM asked them to page Dr Guzman per Dr Johnson dspell 09:10 PM Balloon catheter removed intact. dspell 09:10 PM ACT drawn dspell 09:11 PM 2.0 mm x 15 mm Emerge OTW balloon across target lesion- successful. reused? Yes dspell 09:12 PM Recorded Pressure: Ao, HR=72, Condition=Condition 1 (Aorta) Ao 134/63/90 09:13 PM Balloon inflated @ 14 liz[place] for 10 seconds dspellman 09:13 PM Balloon inflated @ 14 [place]iz[place] for 10 seconds dspell 09:13 PM RY=944 bpm, BXIZ=527/68 mmhg, SpO2=94.0 %, Comment=sinus tach 09:14 PM Time: 21:13 Dopamine 10 mcg/kg/min Intravenous Given by Ginette Estrada RN Ann pump dspell 09:14 PM Balloon inflated @ 14 [place] for 13 seconds dspell 09:14 PM Balloon catheter removed intact. dspell 09:15 PM At 21:14 the ACT was 243 seconds. dspell 09:16 PM Time: 21:15 Heparin 2000 units Intravenous Given by Ginette Estrada RN dspell 09:[address] Guzman called in, talked to Dr Johnson dspell 09:18 PM OB=159 bpm, DNLA=830/72 mmhg, SpO2=99.0 %, Comment=sinus tach 09:18 PM 2.5mm x 24mm Synergy drug-eluting stent across target lesion- successful Lot #[id number] dspell 09:20 PM Stent deployed @ 12 lizbeth for 16 seconds dspell 09:21 PM Stent delivery system removed intact. dspell 09:22 PM Recorded ECG: OE=943 Condition=Condition 1 09:22 PM Time: 21:22 Dopamine 6 mcg/kg/min Intravenous Given by Ginette Estrada RN Ann pump dspell 09:23 PM 2.75mm x 12mm Synergy drug-eluting stent across target lesion- successful Lot #[id number] dspell 09:23 PM HT=601 bpm, QOYT=755/89 mmhg, SpO2=99.0 %, Comment=sinus tach 09:23 PM Time: 21:08 Patient comfortable and pain free: Yes dspell:23 PM Time: 21:08LOC: 1 = Reflexes present/moves spontaneously dspell 09:24 PM Stent deployed @ 16 liz[place] for 15 seconds dspell 09:25 PM Recorded Pressure: Ao, BI=136, Condition=Condition 1 (Aorta) Ao 69/42/54 09:25 PM Stent delivery system removed intact. dspell 09:27 PM 2.75 mm x 15mm NC Trek Rx balloon across target lesion- successful. reused? No dspell 09:28 PM XX=424 bpm, VRRK=458/78 mmhg, SpO2=80.0 %, Comment=sinus tach 09:28 PM Lesion found in Distal RCA. Pre Stenosis: 65 Pre BETHANY Flow: dspell 09:29 PM Balloon inflated @ 16 [place] for 13 seconds dspell 09:29 PM Balloon inflated @ 16 [place] for 10 seconds dspell 09:30 PM Balloon inflated @ 18 [place] for 10 seconds dspell 09:30 PM Balloon catheter removed intact. dspell 09:31 PM Guide wire removed intact. dspell 09:32 PM Lesion found in LMCA. Pre Stenosis: 40 Pre BETHANY Flow: 3: Complete and Brisk Flow/Perfusion dspell 09:32 PM Guide catheter removed intact. dspell 09:33 PM RM=469 bpm, FVXJ=040/69 mmhg, Comment=sinus 09:34 PM Procedure completed at 21:33 dspellman 09:34 PM Arterial sheath pulled, Vasc Band closure device used and was Successful S/N. dspell 09:34 PM NIBP STAT measurement started. 09:34 PM 13 ml air in Vasc Band. dspell 09:34 PM HR=92 bpm, PSJA=090/70 mmhg, Comment=sinus 09:38 PM RD=138 bpm, FWNZ=122/58 mmhg, Comment=sinus 09:38 PM Time: 21:23 Patient comfortable and pain free: Yes dspell 09:39 PM Time: 21:23LOC: 1 = Reflexes present/moves spontaneously dspell 09:39 PM Sign out completed: Radiation Dose 2733.32 mGy Fluoro Time: 36.9 Isovue 370 - 200ml contrast 219.7 ml given by Seng Johnson MD, [facility]. Complications: NoneCardiac Rehab Consult needed: NoConfirmed administered medications: Yes ell 09:43 PM HR=79 bpm, NIBP=86/54 mmhg 09:43 PM NIBP STAT measurement started. 09:44 PM NIBP=82/50 mmhg 09:47 PM Report given to Monet ROBIN Pt taken to ICU Room #6. 21:46 dspell 09:47 PM Site status No bleeding/hematoma - Rt Wrist as reported by Jose De Jesus Muniz RT (R) at 21:47 dspellman 09:47 PM Post Blood Pressure 101/58 dspellman 09:47 PM 21:47 Post Pulses Rt Radial 1+ dspellman 09:47 PM Complications: None dspell 09:48 PM Family placed in consult room. dspellman 09:48 PM Delay to floor No dspellman 09:48 PM Fluoro Time: 36.9 dspellman 09:48 PM Isovue 370 - 200ml contrast 219.[address] Johnson. dspell 09:48 PM Radiation Dose 2733.32 mGy dspellman 09:56 PM Time: 21:39LOC: 1 = Reflexes present/moves spontaneously dspmatt 09:56 PM Time: 21:38 Patient comfortable and pain free: Yes tone Complications Complication None None Hemodynamics Pressures Site Systolic/A Wave Diastolic/V Wave Mean AO 101 60 77 AO 86 45 61 AO 93 75 84 AO 105 86 96 AO 68 0 36 LV 99 18 23 LV 114 23 30 AO 98 60 76 AO 106 56 77 AO 91 45 56 AO 86 44 55 AO 82 55 68 AO 85 46 66 AO 89 56 73 AO 113 71 89 AO 134 63 90 AO 69 42 54 Post Procedure Information Blood Pressure: 101/58 mmHg Rhythm: NSR Post procedural instructions were given Closure Device Time Device Success/Fail 10/25/2017 9:57:00 PM Manual Compression Successful Site Checks Time Location Status Staff Sheath In? Note 09:47 PM Rt Wrist No bleeding/hematoma Jose De Jesus Muniz RT (R) Pulses Time Site Pre-Procedure Post-Procedure Note 9:47:00 PM Rt Radial 2+ 1+ Updated by Princess Dacosta RT (R) on 10/25/2017 10:23:02 PM RT Tashia electronically signed on 10/25/2017 10:24:58 PM with status of Final
--- NOTE | 2017-10-25 22:36 | Event Note ---
Date of Encounter: 10/25/17 Time of Encounter: 22:00 - Cardiology Event Note Initial EKG 1630 AF slow response without diagnostic ischemia, repeat at 1820 shows inferior STEMI. Given patient age, comorbids, postop status he is at high rate of complications for emergent LHC- specifically baseline CKD with recent hypotension and cardiac arrest, PORTER can be expected. He was taken emergently for revascularization because of ongoing chest pain and inferior STEMI. Complex anatomy with dominant mid LCx tortuous and heavily calcified 99 % with thrombus. He had tenuous respiratory status and difficulty complying with commands (moving on table secondary to chest pain) and he agreed to be intubated prior to intervention which was completed after RSI with rocuronium/ fentanyl/versed. With difficulty, with wire progression was able to pass CEMENT CONTRACTOR wire through lesion, unable to pass 1.2 balloon OTW so buried into mid LCx lesion, followed by exchange for extra support wire to deliver 1.2mm balloon with multiple inflation, unable to pass 2.0mm, took 1.5 compliant balloon to 14atm rated pressure, still unable to pass 2.0 still, then took 1.5 back to overrated pressure at 24 lizbeth throughout lesion, able to pass 2.0 balloon to rated pressure followed by 2.5mm overlapped with 2.75mm DWIGHT and tortuous portion postdilated with 2.75NC with BETHANY 3 flow and adequate angiographic result. Patient required escalation of dopamine during intervention for bradycardia/hypotension and then weaned down after intervention. Tirofiban G2b/ 3a inhibitor for DAPT given as ICU was unable to get patient aspirin before taking him to the entry level lab technician. Aspirin to be given rectally postprocedure and continue plavix.
[2017-10-26 04:05] LABS: Basophils % 0.4 %; Eosinophils # 0.1 K/mcL (0.0-0.6); Eosinophils % 0.6 %; Hematocrit 26.1 % (37.5-50.1); Hemoglobin 8.7 g/dL (12.9-16.9); Immature Granulocytes % 0.4 % (0-4); Lymphocytes % 11.1 %; Mean Corpuscular HGB Conc 33.3 g/dL (31.6-35.5); Mean Corpuscular Hemoglobin 29.9 pg (28.0-33.3); Mean Corpuscular Volume 89.7 fL (83.0-100.0); Mean Platelet Volume 10.4 fL (9.4-12.4); Monocytes # 0.9 K/mcL (0.0-1.3); Monocytes % 10.3 %; Platelet Count 114 K/mcL (140-400); Red Blood Count 2.91 M/mcL (4.19-5.50); Red Cell Distribution Width 14.2 % (11.5-14.5); Segmented Neutrophils % 77.2 %
[2017-10-26 04:46] LABS: Calcium 8.2 mg/dL (8.6-10.3); Magnesium 1.7 mg/dL (1.6-2.6); Potassium 4.7 mEq/L (3.5-5.1)
[2017-10-26 05:59] LABS: ABG Base Excess 0 mEq/L (-2 to 3); ABG HCO3 25 mEq/L (21-27); ABG Oxygen Saturation 94 % (95-98); ABG PCO2 38 mmHg (35-45); ABG PH 7.42 pH Units (7.32-7.45); ABG PO2 68 mmHg (85-104); ABG TCO2 26 mEq/L (20-26); Blood Gas Modality ASSIST CONTROL; Blood Gas PEEP 5 cm H2O; Blood Gas Respiration Rate 14; Blood Gas VT 550 cc
--- NOTE | 2017-10-26 07:50 | Pulmonology Progress Note ---
<MaximodestineyAshu christianson M - Last Filed: 10/26/17 08:58> Date of Encounter: 10/26/17 Objective PUL Vital signs: Last Vital Signs Temp 98.2 F 10/26/17 08:03 Pulse 81 10/26/17 08:00 Resp 20 10/26/17 08:00 BP 101/62 10/26/17 08:00 Pulse Ox 99 10/26/17 08:00 Ventilator Settings Ventilator Settings: Ventilator Settings, Last 8 Hours Ventilator Mode CPAP Ventilator Mode VC+ Ventilator Mode VC+ Ventilator Mode VC+ Ventilator Tidal Volume 550 Setting Ventilator Tidal Volume 550 Setting Ventilator Tidal Volume 550 Setting Ventilator Tidal Volume 550 Setting Ventilator Tidal Volume 550 Setting Ventilator Tidal Volume 550 Setting Ventilator Tidal Volume 550 Setting Ventilator Respiratory Rate 14 Setting Ventilator Respiratory Rate 14 Setting Ventilator Respiratory Rate 14 Setting Ventilator Respiratory Rate 14 Setting Ventilator Respiratory Rate 14 Setting Ventilator Respiratory Rate 14 Setting Ventilator Respiratory Rate 14 Setting Actual Respiratory Rate 14 Actual Respiratory Rate 14 Actual Respiratory Rate 14 Actual Respiratory Rate 14 Actual Respiratory Rate 14 Actual Respiratory Rate 14 Positive End Expiratory 5 Pressure Positive End Expiratory 5 Pressure Positive End Expiratory 5 Pressure Positive End Expiratory 5 Pressure Positive End Expiratory 5 Pressure Positive End Expiratory 5 Pressure Positive End Expiratory 5 Pressure Peak Inspiratory Airway 16 Pressure Peak Inspiratory Airway 18 Pressure Peak Inspiratory Airway 18 Pressure Peak Inspiratory Airway 18 Pressure Peak Inspiratory Airway 18 Pressure Peak Inspiratory Airway 18 Pressure Results - Laboratory Findings CBC and BMP: 10/26/17 04:00 10/26/17 03:30 ABG ABG pH 7.42 pH Units (7.32-7.45) 10/26/17 05:55 ABG pCO2 38 mmHg (35-45) 10/26/17 05:55 ABG pO2 68 mmHg (85-104) L 10/26/17 05:55 ABG O2 Saturation 94 % (95-98) L 10/26/17 05:55 PT/INR, D-dimer PT 13.9 Seconds (9.4-12.1) H 10/24/17 15:33 Abnormal lab findings: Abnormal lab results RBC 2.91 M/mcL (4.19-5.50) L 10/26/17 04:00 Hgb 8.7 g/dL (12.9-16.9) L 10/26/17 04:00 Hct 26.1 % (37.5-50.1) L 10/26/17 04:00 Plt Count 114 K/mcL (140-400) L 10/26/17 04:00 PT 13.9 Seconds (9.4-12.1) H 10/24/17 15:33 ABG pO2 68 mmHg (85-104) L 10/26/17 05:55 ABG O2 Saturation 94 % (95-98) L 10/26/17 05:55 ABG Hematocrit 34.0 % (37.5-50.1) L 10/24/17 11:43 ABG Chloride 109 mEq/L (98-107) H 10/24/17 11:43 Glucose 105 mg/dL (60-95) H 10/24/17 11:43 Sodium 133 mEq/L (136-145) L 10/26/17 03:30 Carbon Dioxide 19 mEq/L (23-29) L 10/26/17 03:30 BUN 27 mg/dL (8-23) H 10/26/17 03:30 Creatinine 1.49 mg/dL (0.70-1.30) H 10/26/17 03:30 Est GFR ( Amer) 55 (> 60) L 10/26/17 03:30 Est GFR (Non-Af Amer) 46 (> 60) L 10/26/17 03:30 Glucose 115 mg/dL (70-105) H 10/26/17 03:30 POC Glucose 161 mg/dL (70-99) H 10/25/17 21:55 Calcium 8.2 mg/dL (8.6-10.3) L 10/26/17 03:30 Troponin I 0.42 ng/mL (< 0.04) H* 10/25/17 16:09 - Clinical Findings Intake & Output: Intake & Output 10/25/17 10/26/17 10/26/17 23:59 07:59 15:59 Intake Total 285 / 285 Output Total 1050 / 1050 200 / 200 Balance -1050 / -1050 285 / 285 -200 / -200 Weight 74.4 kg Consult Discharge Plan - Plan Referrals: Ye Guzman MD [Partnered Physician] - 11/25/17 2:50 pm [place],PCP [Primary Care Provider] - 10/30/17 10:45 am - Attending Attestation I examined this patient and my medical decision-making was reviewed with the Resident Physician. I agree with the documented findings, disposition and treatment plan as described except to the extent set forth below. Patient seen and examined. Labs, radiology, chart personally reviewed. Agree with resident's history and physical, assessment, plan with following comments: TECHNICAL STENOGRAPHER: Patient follows commands, Pulmonary: Acceptable oxygenation and ventilation. Patient is doing very well to be extubated. Cardiovascular: stable on dopamine and cardiology to follow-up. Vascular surgeon following up. GI: Nutrition per dietary and GI prophylaxis per routine Heme: DVT prophylaxis per routine Renal; urine out put and renal funtion reviewed Endorcine: blood glucose is monitored Lines: all lines checked and no evidence of infections Skin: skin care to prevent pressure ulcers per nursing routine care <Gene Giraldo - Last Filed: 10/26/17 12:11> Date of Encounter: 10/26/17 Time of Encounter: 07:50 Assessment and Plan (1) STEMI (ST elevation myocardial infarction) Current Visit: Yes Status: Acute Patient had a 12-lead EKG obtained which showed an inferior STEMI. Patient did have symptoms related chest pain. Patient was taken emergently for left heart catheter where he underwent stent placement 2. Patient seen and examined this morning and denies any chest pain that he had last night. Patient is on antiplatelets as well as eloquence. Will defer management of anticoagulation and antiplatelets to vascular as well as cardiology. 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 Dressings appear to be in place. Patient does have distal perfusion. Patient denies any pain of the right lower leg. Management per vascular surgery (3) Bradycardia Current Visit: Yes Status: Acute Heart rate stable in the 70s and 80s on low-dose dopamine. Patient underwent emergent left heart catheter yesterday. Secondary concerns for sick sinus syndrome. PLAN: -Continue on telemetry. daily BMP -On dopamine. Titrate for HR and BP. -Appreciate cardiology recommendations. No need for PPM at this time per Cards. (4) Hypotension Current Visit: No Status: Acute Patient's maintaining a map on low-dose dopamine. Continue to monitor. Patient does have good distal perfusion with good mentation. Etiology likely secondary to cardiogenic. No signs of an infection. No fevers. Qualifiers: Hypotension type: unspecified hypotension type Qualified Code(s): I95.9 - Hypotension, unspecified (5) CAD (coronary artery disease) Current Visit: No Status: Chronic As above Qualifiers: Coronary Disease-Associated Artery/Lesion type: [place] artery [place] vs. transplanted heart: [place] heart Associated angina: without angina Qualified Code(s): I25.10 - Atherosclerotic heart disease of [place] coronary artery without angina pectoris (6) Tobacco abuse Current Visit: Yes Status: Chronic Smoking cessation discussed. Nicotine patch. Duonebs when necessary Subjective Principal diagnosis: Peripheral vascular disease, bradycardia, CAD Interval history: Patient seen and examined this morning. Patient is intubated but cooperative. Events overnight included emergent left heart catheter after the patient had an EKG which showed an inferior STEMI with stents placed 2. Patient remains on low -dose of dopamine. Patient currently denies any symptoms. Patient denies any shortness of breath. And denies any current chest pain. Patient denies any pain in his legs. Objective PUL Vital signs: Last Vital Signs Temp 98.0 F 10/26/17 03:00 Pulse 73 10/26/17 06:00 Resp 14 10/26/17 06:00 BP 100/49 10/26/17 06:00 Pulse Ox 97 10/26/17 06:00 General appearance: no acute distress Eyes: nonicteric ENT: oropharynx moist Neck: supple Effort: normal Auscultation: bilateral: clear Cardiovascular: regular rate and rhythm Gastrointestinal: normoactive bowel sounds Integumentary: normal Extremities: no cyanosis, other (Warm distal extremities. Dressings to right lower leg in place following recent surgery.) Musculoskeletal: no deformities normal mental status, non-focal exam Ventilator Settings Ventilator Settings: Ventilator Settings, Last 8 Hours Ventilator Mode VC+ Ventilator Mode VC+ Ventilator Mode VC+ Ventilator Mode VC+ Ventilator Tidal Volume 550 Setting Ventilator Tidal Volume 550 Setting Ventilator Tidal Volume 550 Setting Ventilator Tidal Volume 550 Setting Ventilator Tidal Volume 550 Setting Ventilator Tidal Volume 550 Setting Ventilator Tidal Volume 550 Setting Ventilator Tidal Volume 550 Setting Ventilator Respiratory Rate 14 Setting Ventilator Respiratory Rate 14 Setting Ventilator Respiratory Rate 14 Setting Ventilator Respiratory Rate 14 Setting Ventilator Respiratory Rate 14 Setting Ventilator Respiratory Rate 14 Setting Ventilator Respiratory Rate 14 Setting Ventilator Respiratory Rate 14 Setting Actual Respiratory Rate 14 Actual Respiratory Rate 14 Actual Respiratory Rate 14 Actual Respiratory Rate 14 Actual Respiratory Rate 14 Actual Respiratory Rate 14 Actual Respiratory Rate 14 Positive End Expiratory 5 Pressure Positive End Expiratory 5 Pressure Positive End Expiratory 5 Pressure Positive End Expiratory 5 Pressure Positive End Expiratory 5 Pressure Positive End Expiratory 5 Pressure Positive End Expiratory 5 Pressure Positive End Expiratory 5 Pressure Peak Inspiratory Airway 18 Pressure Peak Inspiratory Airway 18 Pressure Peak Inspiratory Airway 18 Pressure Peak Inspiratory Airway 18 Pressure Peak Inspiratory Airway 18 Pressure Peak Inspiratory Airway 18 Pressure Peak Inspiratory Airway 18 Pressure Results - Laboratory Findings CBC and BMP: 10/26/17 04:00 10/26/17 03:30 ABG ABG pH 7.42 pH Units (7.32-7.45) 10/26/17 05:55 ABG pCO2 38 mmHg (35-45) 10/26/17 05:55 ABG pO2 68 mmHg (85-104) L 10/26/17 05:55 ABG O2 Saturation 94 % (95-98) L 10/26/17 05:55 PT/INR, D-dimer PT 13.9 Seconds (9.4-12.1) H 10/24/17 15:33 Abnormal lab findings: Abnormal lab results RBC 2.91 M/mcL (4.19-5.50) L 10/26/17 04:00 Hgb 8.7 g/dL (12.9-16.9) L 10/26/17 04:00 Hct 26.1 % (37.5-50.1) L 10/26/17 04:00 Plt Count 114 K/mcL (140-400) L 10/26/17 04:00 PT 13.9 Seconds (9.4-12.1) H 10/24/17 15:33 ABG pO2 68 mmHg (85-104) L 10/26/17 05:55 ABG O2 Saturation 94 % (95-98) L 10/26/17 05:55 ABG Hematocrit 34.0 % (37.5-50.1) L 10/24/17 11:43 ABG Chloride 109 mEq/L (98-107) H 10/24/17 11:43 Glucose 105 mg/dL (60-95) H 10/24/17 11:43 Sodium 133 mEq/L (136-145) L 10/26/17 03:30 Carbon Dioxide 19 mEq/L (23-29) L 10/26/17 03:30 BUN 27 mg/dL (8-23) H 10/26/17 03:30 Creatinine 1.49 mg/dL (0.70-1.30) H 10/26/17 03:30 Est GFR ( Amer) 55 (> 60) L 10/26/17 03:30 Est GFR (Non-Af Amer) 46 (> 60) L 10/26/17 03:30 Glucose 115 mg/dL (70-105) H 10/26/17 03:30 POC Glucose 161 mg/dL (70-99) H 10/25/17 21:55 Calcium 8.2 mg/dL (8.6-10.3) L 10/26/17 03:30 Troponin I 0.42 ng/mL (< 0.04) H* 10/25/17 16:09 - Clinical Findings Intake & Output: Intake & Output 10/25/17 10/25/17 10/26/17 15:59 23:59 07:59 Intake Total 1532 / 1532 285 / 285 Output Total 850 / 850 1050 / 1050 Balance 682 / 682 -1050 / -1050 285 / 285 Weight 74.4 kg - VTE Documentation of Mechanical Device: Intermittent pneumatic compression device
[2017-10-26] MEDS ORDERED: Aspirin 81 MG TAB.CHEW PO SCH (09:00)
--- NOTE | 2017-10-26 09:11 | Cardiology Progress Note ---
Date of Encounter: 11/04/17 Time of Encounter: 09:00 Assessment and Plan (1) STEMI (ST elevation myocardial infarction) Status: Acute S/p acute inferior AK 10/25/17 with PTCA and DWIGHT to the left circumflex artery ( culprit leasion). There was a 40% stenosis in LMCA, 60% stenosis pLAD, 60-70% stenosis mLAD, 60% stenosis in the 1st diagonal artery, and 65% stenosis in the distal Lcx artery remaining. TTE showed preserved EF, 65-70%, moderate LVH, and severely dilated LA. Continue DAPT, statin. Not on bb due to hypotension and bradycardia during and after LHC for AK. previously on dopamine and now weaned off. Consider low dose bb prior to d/c if able. Patient stable currently. Anemia, normocytic, likely from CKD and recent surgery. No acute bleeding. On Maintain Hgb > 8, transfuse if necessary. Importance of DAPT for one year reviewed with patient.. Qualifiers: Involved coronary artery: left circumflex coronary artery Qualified Code(s) : I21.21 - ST elevation (STEMI) myocardial infarction involving left circumflex coronary artery (2) Hypotension Status: Acute wean dopamine Qualifiers: Hypotension type: unspecified hypotension type Qualified Code(s): I95.9 - Hypotension, unspecified Discussion w patient/family: The assessment and plan as outlined above was discussed with the patient and/or family members who expressed understanding and agreement. All questions were answered. Thank you for involving us in the care of your patient. Please call with any questions. Subjective Principal diagnosis: severe claudication and STEMI Interval history: sp transradial PCI Acute AK last night to mid dominant LCx with DWIGHT x 2. Patient extubated this morning and notes that the new type of chest pain last night has resolved. He has no dyspnea and wants to go home today. He is maintained on low dose dopamine. Objective Vital Signs, Last 4 Hours Temp Pulse Resp BP Pulse Ox 10/26/17 08:03 98.2 F 10/26/17 08:00 81 20 101/62 99 10/26/17 07:30 69 14 100/51 95 10/26/17 06:00 73 14 100/49 97 General: Conversant HEENT: Atraumatic Neck: No JVD Cardiac: Reg Rate and Rhythm Lungs: Normal Breath Sounds Neuro: Alert and responsive Abdomen: Soft Skin: No rashes noted on visualized skin Musculoskeletal: No Chest Wall Tenderness Extremities: Other (trace edema) Results 10/30/17 04:00 10/30/17 04:00 Lab Results 10/25/17 10/25/17 10/25/17 08:00 15:04 15:04 WBC Hgb 9.5 L Hct 28.0 L Plt Count Sodium 133 L Potassium 5.0 4.6 Chloride 106 Carbon Dioxide 25 BUN 31 H Creatinine 1.62 H Glucose 123 H Calcium 8.7 Magnesium 1.8 Troponin I 10/25/17 10/26/17 10/26/17 16:09 03:30 04:00 WBC 9.1 Hgb 8.7 L Hct 26.1 L Plt Count 114 L Sodium 133 L Potassium 4.7 Chloride 107 Carbon Dioxide 19 L BUN 27 H Creatinine 1.49 H Glucose 115 H Calcium 8.2 L Magnesium 1.7 Troponin I 0.42 H* - VTE Documentation of Mechanical Device: Intermittent pneumatic compression device Consult Discharge Plan - Plan Instructions: Myocardial Infarction (DC), Peripheral Vascular Disorders (DC) Additional Instructions: May remove the bandages and shower. Wash wound gently and pat dry. No tub baths or swimming for [address] Guzman at [phone] with questions or concerns. Referrals: Ye Guzman MD [Partnered Physician] - 11/25/17 2:50 pm [place],PCP [Primary Care Provider] - 11/08/17 10:45 am Prescriptions: Acetaminophen [Tylenol] 1,000 mg PO Q6HR PRN #90 tablet PRN Reason: Pain Nicotine Patch [Nicoderm] 21 mg TD DAILY #30 patch.[id number]
[2017-10-26] MEDS: Finasteride 5 MG TABLET PO SCH (09:33)
[2017-10-26] MEDS: Nicotine 21 MG PATCH.TD24 TD SCH (09:34)
[2017-10-26] MEDS: Aspirin 81 MG TAB.CHEW PO SCH (09:34)
[2017-10-26] MEDS: Furosemide 40 MG TABLET PO SCH ×2 (09:34→20:25)
[2017-10-26] MEDS: 0.9 % Sodium Chloride 1,000 ML IVC SCH (09:35)
--- NOTE | 2017-10-26 14:15 | Vascular/[facility] Progress Note ---
Date of Encounter: 10/26/17 Time of Encounter: 13:50 - Assessment and plan (1) Atherosclerosis of [place] artery of both lower extremities with intermittent claudication Current Visit: Yes Status: Chronic Patent right lower extremity bypass graft. No signs of further bleeding or hematoma. Marked improvement in the perfusion to the right lower extremity. (2) STEMI (ST elevation myocardial infarction) Current Visit: Yes Status: Acute Status post emergency catheterization and stent angioplasties 2 last night. Patient seemed in anatomy to be stable and chest pain free this afternoon. Appreciate cardiology and pulmonary critical services assistance and care for the patient for this problem. Qualifiers: Involved coronary artery: unspecified coronary artery Qualified Code(s): I21.3 - ST elevation (STEMI) myocardial infarction of unspecified site - Subjective Interval history: Mr. Sims is postoperative day #2 from a right lower extremity bypass graft and postop day #2 from takeback surgery for right groin hematoma. He has had a eventful postoperative course requiring [place]-[facility] support area consultations were made to cardiology and ulnar A critical care yesterday. Late in the day there were EKG changes. There were suggestive of inferior wall acute myocardial infarction. The patient was taken last night to the cardiac catheter suite by Dr. Johnson for emergency cardiac catheterization. 2 coronary stents were placed. The patient is feeling well this afternoon. He has no specific complaints. He wishes to get up and walk. He denies any chest pain or shortness of breath. He denies any right lower extremity pain except at the surgical incisions. Vital Signs, Last 4 Hours Temp Pulse Resp BP Pulse Ox 10/26/17 13:00 65 14 112/45 99 10/26/17 12:00 98.3 F 71 15 99/42 100 10/26/17 11:00 64 17 94/40 100 - Physical Examination General: Present: Conversant, No Apparent Distress, Well developed, Well nourished HEENT: Present: Atraumatic Cardiac: Present: Irregular Rhythm Lungs: Present: Normal Breath Sounds Neuro: Present: Alert and responsive, No focal deficits noted, Cranial nerves grossly intact Vascular: Present: Edema (Mild right foot and ankle edema), Color/Temperature ( Normal color and temperature of right foot.), Surgical incisions (Surgical incision are covered with dressings which are dry and intact.), Other (The patient has Doppler signals 3 at the right ankle.) Abdomen: Present: Soft Skin: Present: No rashes noted on visualized skin - VTE Documentation of Mechanical Device: Intermittent pneumatic compression device Results 10/26/17 04:00 10/26/17 03:30 Lab Results, Last 24 hours 10/25/17 10/25/17 10/25/17 15:04 15:04 16:09 WBC Hgb 9.5 L Hct 28.0 L Plt Count Sodium 133 L Potassium 4.6 Chloride 106 Carbon Dioxide 25 BUN 31 H Creatinine 1.62 H Glucose 123 H Calcium 8.7 Magnesium 1.8 Troponin I 0.42 H* 10/26/17 10/26/17 03:30 04:00 WBC 9.1 Hgb 8.7 L Hct 26.1 L Plt Count 114 L Sodium 133 L Potassium 4.7 Chloride 107 Carbon Dioxide 19 L BUN 27 H Creatinine 1.49 H Glucose 115 H Calcium 8.2 L Magnesium 1.7 Troponin I Consult Discharge Plan - Plan Referrals: Ye Guzman MD [Partnered Physician] - 11/25/17 2:50 pm [place],PCP [Primary Care Provider] - 10/30/17 10:45 am
[2017-10-26] MEDS: Tirofiban 12.5 MG/250ML 12.5 MG/250 ML BAG IVC SCH ×2 (19:26)
[2017-10-27 04:15] LABS: Basophils % 0.1 %; Eosinophils # 0.2 K/mcL (0.0-0.6); Eosinophils % 2.2 %; Hematocrit 23.9 % (37.5-50.1); Hemoglobin 7.9 g/dL (12.9-16.9); Immature Granulocytes % 0.4 % (0-4); Lymphocytes # 0.8 K/mcL (0.6-4.6); Lymphocytes % 10.8 %; Mean Corpuscular HGB Conc 33.1 g/dL (31.6-35.5); Mean Corpuscular Hemoglobin 30.5 pg (28.0-33.3); Mean Corpuscular Volume 92.3 fL (83.0-100.0); Mean Platelet Volume 10.6 fL (9.4-12.4); Monocytes # 0.6 K/mcL (0.0-1.3); Neutrophils # 5.5 K/mcL (1.6-8.9); Platelet Count 120 K/mcL (140-400); Red Blood Count 2.59 M/mcL (4.19-5.50); Red Cell Distribution Width 14.1 % (11.5-14.5); Segmented Neutrophils % 77.5 %
[2017-10-27 05:07] LABS: Calcium 8.3 mg/dL (8.6-10.3); Phosphorous 2.3 mg/dL (2.7-4.5); Potassium 4.4 mEq/L (3.5-5.1)
--- NOTE | 2017-10-27 06:59 | Pulmonology Progress Note ---
<Gene Giraldo - Last Filed: 10/27/17 10:42> Date of Encounter: 10/27/17 Time of Encounter: 10:34 Assessment and Plan (1) STEMI (ST elevation myocardial infarction) Current Visit: Yes Status: Acute Patient had a 12-lead EKG obtained which showed an inferior STEMI. Patient did have symptoms related chest pain. Patient was taken emergently for left heart catheter where he underwent stent placement 2. Patient seen and examined this morning and denies any chest pain that he had last night. Patient is on antiplatelets as well as eloquence. Will defer management of anticoagulation and antiplatelets to vascular as well as cardiology. PLAN -Cardiology following, appreciate recs -On antiplatelets -On statin -Blood pressure/HR not appropriate for BB currently -On tele, continue to monitor Qualifiers: Involved coronary artery: unspecified coronary artery Qualified Code(s): I21.3 - ST elevation (STEMI) myocardial infarction of unspecified site (2) Peripheral vascular disease Current Visit: Yes Status: Acute Postop from a femoropopliteal bypass with resection of right femoral aneurysm. Dressings appear to be in place. Patient does have distal perfusion. Patient denies any pain of the right lower leg. Management per vascular surgery (3) Bradycardia Current Visit: Yes Status: Acute Heart rate stable in the 70s and 80s on low-dose dopamine. Patient underwent emergent left heart catheter yesterday. Secondary concerns for sick sinus syndrome. PLAN: -Continue on telemetry. daily BMP -On dopamine. Titrate for HR and BP. -Appreciate cardiology recommendations. No need for PPM at this time per Cards. (4) Hypotension Current Visit: No Status: Acute Patient's maintaining a map on low-dose dopamine. Continue to monitor. Patient does have good distal perfusion with good mentation. Etiology likely secondary to cardiogenic. No signs of an infection. No fevers. Qualifiers: Hypotension type: unspecified hypotension type Qualified Code(s): I95.9 - Hypotension, unspecified (5) CAD (coronary artery disease) Current Visit: No Status: Chronic As above Qualifiers: Coronary Disease-Associated Artery/Lesion type: [place] artery [place] vs. transplanted heart: [place] heart Associated angina: without angina Qualified Code(s): I25.10 - Atherosclerotic heart disease of [place] coronary artery without angina pectoris (6) Tobacco abuse Current Visit: Yes Status: Chronic Smoking cessation discussed. Nicotine patch. Duonebs when necessary (7) DVT prophylaxis Current Visit: No Status: Acute Awaiting vascular surgery's approval before initiating heparin given the patient 's recent surgery as well as aneurysm. EPCDs placed to unaffected leg. Subjective Principal diagnosis: Peripheral vascular disease, bradycardia, CAD Interval history: Patient seen and examined this morning. Patient states that he feels nauseous after eating. Patient denies any chest pain but did note neck pain. 12-lead EKG obtained and reviewed shows similar to prior EKGs. No STEMI criteria. Overnight the patient did have an episode where he was unresponsive and appeared to stare off into space. There is no jerking activity noted. Patient' s vitals remained stable. Objective PUL Vital signs: Last Vital Signs Temp 97.4 F L 10/27/17 03:00 Pulse 79 10/27/17 05:50 Resp 12 10/27/17 05:50 BP 124/62 10/27/17 05:50 Pulse Ox 98 10/27/17 05:50 General appearance: no acute distress Eyes: nonicteric ENT: oropharynx moist Neck: supple Effort: normal Auscultation: bilateral: rhonchi (Coarse throughout) Cardiovascular: regular rate and rhythm Gastrointestinal: normoactive bowel sounds, non-tender, non-distended Integumentary: normal Extremities: no cyanosis, other (Dopplerable pulses distally. Warm extremities. Dressing appears dry in the right lower leg.) normal mental status, non-focal exam, CN II-XII normal Results - Laboratory Findings CBC and BMP: 10/27/17 04:00 10/27/17 04:00 ABG ABG pH 7.42 pH Units (7.32-7.45) 10/26/17 05:55 ABG pCO2 38 mmHg (35-45) 10/26/17 05:55 ABG pO2 68 mmHg (85-104) L 10/26/17 05:55 ABG O2 Saturation 94 % (95-98) L 10/26/17 05:55 PT/INR, D-dimer PT 13.9 Seconds (9.4-12.1) H 10/24/17 15:33 Abnormal lab findings: Abnormal lab results RBC 2.59 M/mcL (4.19-5.50) L 10/27/17 04:00 Hgb 7.9 g/dL (12.9-16.9) L 10/27/17 04:00 Hct 23.9 % (37.5-50.1) L 10/27/17 04:00 Plt Count 120 K/mcL (140-400) L 10/27/17 04:00 PT 13.9 Seconds (9.4-12.1) H 10/24/17 15:33 ABG pO2 68 mmHg (85-104) L 10/26/17 05:55 ABG O2 Saturation 94 % (95-98) L 10/26/17 05:55 ABG Hematocrit 34.0 % (37.5-50.1) L 10/24/17 11:43 ABG Chloride 109 mEq/L (98-107) H 10/24/17 11:43 Glucose 105 mg/dL (60-95) H 10/24/17 11:43 Sodium 133 mEq/L (136-145) L 10/27/17 04:00 BUN 30 mg/dL (8-23) H 10/27/17 04:00 Creatinine 1.55 mg/dL (0.70-1.30) H 10/27/17 04:00 Est GFR ( Amer) 53 (> 60) L 10/27/17 04:00 Est GFR (Non-Af Amer) 44 (> 60) L 10/27/17 04:00 Glucose 112 mg/dL (70-105) H 10/27/17 04:00 POC Glucose 161 mg/dL (70-99) H 10/25/17 21:55 Calcium 8.3 mg/dL (8.6-10.3) L 10/27/17 04:00 Phosphorus 2.3 mg/dL (2.7-4.5) L 10/27/17 04:00 Troponin I 0.42 ng/mL (< 0.04) H* 10/25/17 16:09 - Clinical Findings Intake & Output: Intake & Output 10/26/17 10/26/17 10/27/17 15:59 23:59 07:59 Intake Total 599 / 599 606 / 606 204 / 204 Output Total 400 / 400 0 / 0 350 / 350 Balance 199 / 199 606 / 606 -146 / -146 - VTE Documentation of Mechanical Device: Intermittent pneumatic compression device Consult Discharge Plan - Plan Referrals: Ye Guzman MD [Partnered Physician] - 11/25/17 2:50 pm [facility]PCP [Primary Care Provider] - 10/30/17 10:45 am <Damián Nathan S - Last Filed: 10/27/17 22:34> Date of Encounter: 10/27/17 Objective PUL Vital signs: Last Vital Signs Temp 98.1 F 10/27/17 19:36 Pulse 65 10/27/17 21:54 Resp 22 10/27/17 21:54 BP 98/55 10/27/17 21:54 Pulse Ox 93 10/27/17 21:54 Results - Laboratory Findings CBC and BMP: 10/27/17 18:50 10/27/17 04:00 ABG ABG pH 7.42 pH Units (7.32-7.45) 10/26/17 05:55 ABG pCO2 38 mmHg (35-45) 10/26/17 05:55 ABG pO2 68 mmHg (85-104) L 10/26/17 05:55 ABG O2 Saturation 94 % (95-98) L 10/26/17 05:55 PT/INR, D-dimer PT 11.9 Seconds (9.4-12.1) 10/27/17 18:50 Abnormal lab findings: Abnormal lab results RBC 2.80 M/mcL (4.19-5.50) L 10/27/17 18:50 Hgb 8.6 g/dL (12.9-16.9) L 10/27/17 18:50 Hct 25.7 % (37.5-50.1) L 10/27/17 18:50 Plt Count 118 K/mcL (140-400) L 10/27/17 18:50 ABG pO2 68 mmHg (85-104) L 10/26/17 05:55 ABG O2 Saturation 94 % (95-98) L 10/26/17 05:55 ABG Hematocrit 34.0 % (37.5-50.1) L 10/24/17 11:43 ABG Chloride 109 mEq/L (98-107) H 10/24/17 11:43 Glucose 105 mg/dL (60-95) H 10/24/17 11:43 Sodium 133 mEq/L (136-145) L 10/27/17 04:00 BUN 30 mg/dL (8-23) H 10/27/17 04:00 Creatinine 1.55 mg/dL (0.70-1.30) H 10/27/17 04:00 Est GFR ( Amer) 53 (> 60) L 10/27/17 04:00 Est GFR (Non-Af Amer) 44 (> 60) L 10/27/17 04:00 Glucose 112 mg/dL (70-105) H 10/27/17 04:00 POC Glucose 161 mg/dL (70-99) H 10/25/17 21:55 Calcium 8.3 mg/dL (8.6-10.3) L 10/27/17 04:00 Phosphorus 2.3 mg/dL (2.7-4.5) L 10/27/17 04:00 Troponin I 0.42 ng/mL (< 0.04) H* 10/25/17 16:09 - Clinical Findings Intake & Output: Intake & Output 10/27/17 10/27/17 10/27/17 07:59 15:59 23:59 Intake Total 204 / 204 416 / 416 593 / 593 Output Total 350 / 350 200 / 200 525 / 525 Balance -146 / -146 216 / 216 68 / 68 - Attending Attestation I saw and evaluated this patient and my medical decision-making was reviewed with the Resident Physician. I agree with the documented findings, disposition and treatment plan as described except to the extent set forth below. We independently had [id number] contact with the patient Patient seen and examined at bedside Labs, radiology, chart personally reviewed. Management was reviewed during multidisciplinary critical care rounds. WHOLESALER:Patient is conscious oriented x 3 no acute WHOLESALER issues today Pulm: Patient has acceptable oxygenation and ventilation Cards: Patient has severe CAD and PVD had inferior wall MT has tow stents medical managment according to Cardiology we are trying to liberate Dopamine FEN-GI: Nutrition according to recs Renal: Labs output reviewed ID: No active infectious issues Heme/Onc:DVT prophylaxis Endo: Glucose Monitored Integ/MSK: Skin Care per routine ICU Nursing Protocol to prevent ulcers. Lines: All lines examined without evidence of infection : Dispo: Patient can be transferred to but no bed available provide if he is off Dopamine CODE:Full Code
[2017-10-27] MEDS: Finasteride 5 MG TABLET PO SCH (08:50)
[2017-10-27] MEDS: Aspirin 81 MG TAB.CHEW PO SCH (08:50)
[2017-10-27] MEDS: Ondansetron 4 MG/2 ML VIAL IVP PRN (08:50)
[2017-10-27] MEDS: Furosemide 40 MG TABLET PO SCH ×2 (08:51→19:48)
[2017-10-27] MEDS: Nicotine 21 MG PATCH.TD24 TD SCH (08:51)
--- NOTE | 2017-10-27 10:44 | Cardiology Progress Note ---
Date of Encounter: 10/27/17 Time of Encounter: 11:00 Assessment and Plan (1) STEMI (ST elevation myocardial infarction) Current Visit: Yes Status: Acute Continue DAPT, BB, statin. Patient stable. If hemoglobin continues to trend down and needs to be on Eliquis, will discontinue aspirin. Anemia, normocytic, likely from CKD and recent surgery. Maintain Hgb > 8, transfuse if necessary Qualifiers: Involved coronary artery: left circumflex coronary artery Qualified Code(s) : I21.21 - ST elevation (STEMI) myocardial infarction involving left circumflex coronary artery (2) Peripheral vascular disease Current Visit: Yes Status: Acute sp open revascularization, appears to be healing well Discussion w patient/family: The assessment and plan as outlined above was discussed with the patient and/or family members who expressed understanding and agreement. All questions were answered. Thank you for involving us in the care of your patient. Please call with any questions. Subjective Principal diagnosis: Peripheral vascular disease, bradycardia, CAD Interval history: sp transradial PCI Acute MS to mid dominant LCx with DWIGHT x 2. He denies chest discomfort. Objective Vital Signs, Last 4 Hours Temp Pulse Resp BP Pulse Ox 10/27/17 10:00 56 16 93/47 97 10/27/17 09:00 79 16 121/68 96 10/27/17 08:00 97.8 F 87 16 116/48 97 10/27/17 07:41 76 10/27/17 07:00 88 14 130/70 97 General: Conversant HEENT: Atraumatic Neck: No JVD Cardiac: Reg Rate and Rhythm Lungs: Normal Breath Sounds Neuro: Alert and responsive Abdomen: Soft Skin: No rashes noted on visualized skin Musculoskeletal: No Chest Wall Tenderness Extremities: No Edema Results 10/27/17 04:00 10/27/17 04:00 Lab Results 10/27/17 10/27/17 04:00 04:00 WBC 7.1 Hgb 7.9 L Hct 23.9 L Plt Count 120 L Sodium 133 L Potassium 4.4 Chloride 107 Carbon Dioxide 24 BUN 30 H Creatinine 1.55 H Glucose 112 H Calcium 8.3 L Magnesium 2.0 - VTE Documentation of Mechanical Device: Intermittent pneumatic compression device Consult Discharge Plan - Plan Referrals: Ye Guzman MD [Partnered Physician] - 11/25/17 2:50 pm [facility]PCP [Primary Care Provider] - 10/30/17 10:45 am
--- NOTE | 2017-10-27 14:27 | Vascular/[facility] Progress Note ---
Date of Encounter: 10/27/17 Time of Encounter: 14:25 - Assessment and plan (1) Atherosclerosis of [place] artery of both lower extremities with intermittent claudication Current Visit: Yes Status: Chronic Patent right lower extremity bypass graft. Marked improvement in the perfusion to the right lower extremity. (2) STEMI (ST elevation myocardial infarction) Current Visit: Yes Status: Acute Status post emergency catheterization and stent angioplasties 2 Saturday. Patient seemed in anatomy to be stable and chest pain free this afternoon. Appreciate cardiology and pulmonary critical services assistance and care for the patient for this problem. Qualifiers: Involved coronary artery: left circumflex coronary artery Qualified Code(s) : I21.21 - ST elevation (STEMI) myocardial infarction involving left circumflex coronary artery (3) Anemia Current Visit: Yes Status: Acute Hgb now 7.9. will transfuse due to CAD Qualifiers: Anemia type: unspecified type Qualified Code(s): D64.9 - Anemia, unspecified - Subjective Interval history: Mr. Sims is postoperative day #3 from a right lower extremity bypass graft and postop day #3 from takeback surgery for right groin hematoma. He has had a eventful postoperative course requiring Tyler-Synephrine support area consultations were made to cardiology and ulnar A critical care yesterday. Late in the day there were EKG changes. There were suggestive of inferior wall acute myocardial infarction. The patient was taken last night to the cardiac catheter suite by Dr. Johnson for emergency cardiac catheterization. 2 coronary stents were placed. The patient is feeling well this afternoon. He has no specific complaints. Vital Signs, Last 4 Hours Temp Pulse Resp BP Pulse Ox 10/27/17 12:00 97.4 F L 64 16 101/49 95 10/27/17 11:45 64 10/27/17 11:00 72 18 132/58 96 - Physical Examination General: Present: Conversant Cardiac: Present: Irregular Rhythm Lungs: Present: Normal Breath Sounds Vascular: Present: Normal capillary refill, Edema (pt has edema of right calf), Color/Temperature (warm), Surgical incisions (clean and dry) Skin: Present: No rashes noted on visualized skin - VTE Documentation of Mechanical Device: Intermittent pneumatic compression device Results 10/27/17 04:00 10/27/17 04:00 Lab Results, Last 24 hours 10/27/17 10/27/17 04:00 04:00 WBC 7.1 Hgb 7.9 L Hct 23.9 L Plt Count 120 L Sodium 133 L Potassium 4.4 Chloride 107 Carbon Dioxide 24 BUN 30 H Creatinine 1.55 H Glucose 112 H Calcium 8.3 L Magnesium 2.0 Consult Discharge Plan - Plan Referrals: Ye Guzman MD [Partnered Physician] - 11/25/17 2:50 pm [facility],PCP [Primary Care Provider] - 10/30/17 10:45 am
[2017-10-27 19:11] LABS: Basophils % 0.2 %; Eosinophils # 0.2 K/mcL (0.0-0.6); Hematocrit 25.7 % (37.5-50.1); Hemoglobin 8.6 g/dL (12.9-16.9); Immature Granulocytes % 0.3 % (0-4); Lymphocytes # 0.7 K/mcL (0.6-4.6); Mean Corpuscular HGB Conc 33.5 g/dL (31.6-35.5); Mean Corpuscular Hemoglobin 30.7 pg (28.0-33.3); Mean Corpuscular Volume 91.8 fL (83.0-100.0); Mean Platelet Volume 10.3 fL (9.4-12.4); Monocytes # 0.6 K/mcL (0.0-1.3); Monocytes % 8.7 %; Neutrophils # 4.9 K/mcL (1.6-8.9); Platelet Count 118 K/mcL (140-400); Red Cell Distribution Width 14.1 % (11.5-14.5); Segmented Neutrophils % 76.8 %
[2017-10-27 19:17] LABS: INR 1.1; Prothrombin Time 11.9 Seconds (9.4-12.1)
[2017-10-27 19:20] LABS: Activated Partial Thrombo Time 26.7 Seconds (26.0-36.0)
[2017-10-27] MEDS: Tirofiban 12.5 MG/250ML 12.5 MG/250 ML BAG IVC SCH ×2 (19:26)
[2017-10-28 03:52] LABS: Basophils % 0.1 %; Eosinophils # 0.2 K/mcL (0.0-0.6); Eosinophils % 3.3 %; Hematocrit 24.8 % (37.5-50.1); Hemoglobin 8.3 g/dL (12.9-16.9); Immature Granulocytes % 0.6 % (0-4); Lymphocytes # 0.8 K/mcL (0.6-4.6); Lymphocytes % 11.8 %; Mean Corpuscular HGB Conc 33.5 g/dL (31.6-35.5); Mean Corpuscular Hemoglobin 30.5 pg (28.0-33.3); Mean Corpuscular Volume 91.2 fL (83.0-100.0); Mean Platelet Volume 10.4 fL (9.4-12.4); Monocytes # 0.6 K/mcL (0.0-1.3); Monocytes % 9.1 %; Neutrophils # 5.3 K/mcL (1.6-8.9); Platelet Count 123 K/mcL (140-400); Red Blood Count 2.72 M/mcL (4.19-5.50); Red Cell Distribution Width 14.2 % (11.5-14.5); Segmented Neutrophils % 75.1 %
[2017-10-28 04:03] LABS: Magnesium 1.9 mg/dL (1.6-2.6); Phosphorous 2.7 mg/dL (2.7-4.5)
[2017-10-28 04:06] LABS: Calcium 8.2 mg/dL (8.6-10.3)
--- NOTE | 2017-10-28 07:33 | Pulmonology Progress Note ---
Date of Encounter: 10/28/17 Time of Encounter: 07:33 Assessment and Plan (1) Hypotension Current Visit: No Status: Acute Remains on low-dose dopamine this is driven prove Migliaccio pressure per vascular surgery recommendations is no evidence of distal hypoperfusion at this time and I suspect dopamine to be weaned off over the course of the day Qualifiers: Hypotension type: unspecified hypotension type Qualified Code(s): I95.9 - Hypotension, unspecified (2) Bradycardia Current Visit: Yes Status: Acute This is resolved cardiology following possibly related to inferior wall [place] no need for permanent pacemaker (3) Peripheral vascular disease Current Visit: Yes Status: Acute Patient is postop from femoral-popliteal bypasses resection of right femoral aneurysm management per vascular surgery (4) STEMI (ST elevation myocardial infarction) Current Visit: Yes Status: Acute Status post PCI 2 cardiology following continue antiplatelet therapy continue statin holding beta abhi because of heart rate Qualifiers: Involved coronary artery: left circumflex coronary artery Qualified Code(s) : I21.21 - ST elevation (STEMI) myocardial infarction involving left circumflex coronary artery (5) A-fib Current Visit: No Status: Acute Would defer to vascular surgery and cardiology regarding anticoagulation management. Patient was taking a novel anticoagulant at home and on all anticoagulations being held while inpatient right now at the very least to benefit from a DVT prophylaxis and will do further timing of vascular surgery regarding administration of this given recent surgery was aneurysm repair although I do not see a clear contraindication and/or restarting home anticoagulation for afib. Qualifiers: Atrial fibrillation type: chronic Qualified Code(s): I48.2 - Chronic atrial fibrillation Subjective Principal diagnosis: Peripheral vascular disease, bradycardia, CAD Interval history: Denies complaints today. He remains on a low dose of dopamine. Objective PUL Vital signs: Last Vital Signs Temp 98.7 F 10/28/17 05:00 Pulse 58 10/28/17 06:00 Resp 22 10/28/17 06:00 BP 111/57 10/28/17 06:00 Pulse Ox 93 10/28/17 06:00 General appearance: no acute distress ENT: oropharynx moist Auscultation: bilateral: rales (Bibasilar) Cardiovascular: irregular rhythm Gastrointestinal: soft, non-tender Extremities: other (Postsurgical changes in the right groin region scrotal ecchymosis noted right groin modestly tender to palpation distal extremities are well perfused and warm he has dopplerable pulses bilaterally) normal mental status, non-focal exam mood appropriate Results - Laboratory Findings CBC and BMP: 10/28/17 03:30 10/28/17 03:30 ABG ABG pH 7.42 pH Units (7.32-7.45) 10/26/17 05:55 ABG pCO2 38 mmHg (35-45) 10/26/17 05:55 ABG pO2 68 mmHg (85-104) L 10/26/17 05:55 ABG O2 Saturation 94 % (95-98) L 10/26/17 05:55 PT/INR, D-dimer PT 11.9 Seconds (9.4-12.1) 10/27/17 18:50 Abnormal lab findings: Abnormal lab results RBC 2.72 M/mcL (4.19-5.50) L 10/28/17 03:30 Hgb 8.3 g/dL (12.9-16.9) L 10/28/17 03:30 Hct 24.8 % (37.5-50.1) L 10/28/17 03:30 Plt Count 123 K/mcL (140-400) L 10/28/17 03:30 ABG pO2 68 mmHg (85-104) L 10/26/17 05:55 ABG O2 Saturation 94 % (95-98) L 10/26/17 05:55 ABG Hematocrit 34.0 % (37.5-50.1) L 10/24/17 11:43 ABG Chloride 109 mEq/L (98-107) H 10/24/17 11:43 Glucose 105 mg/dL (60-95) H 10/24/17 11:43 Sodium 133 mEq/L (136-145) L 10/28/17 03:30 BUN 31 mg/dL (8-23) H 10/28/17 03:30 Creatinine 1.89 mg/dL (0.70-1.30) H 10/28/17 03:30 Est GFR ( Amer) 42 (> 60) L 10/28/17 03:30 Est GFR (Non-Af Amer) 35 (> 60) L 10/28/17 03:30 Glucose 115 mg/dL (70-105) H 10/28/17 03:30 POC Glucose 161 mg/dL (70-99) H 10/25/17 21:55 Calcium 8.2 mg/dL (8.6-10.3) L 10/28/17 03:30 Troponin I 0.42 ng/mL (< 0.04) H* 10/25/17 16:09 - Clinical Findings Intake & Output: Intake & Output 10/27/17 10/27/17 10/28/17 15:59 23:59 07:59 Intake Total 416 / 416 953 / 953 240 / 240 Output Total 200 / 200 1075 / 1075 200 / 200 Balance 216 / 216 -122 / -122 40 / 40 - VTE Documentation of Mechanical Device: Intermittent pneumatic compression device Consult Discharge Plan - Plan Referrals: Ye Guzman MD [Partnered Physician] - 11/25/17 2:50 pm [facility],PCP [Primary Care Provider] - 10/30/17 10:45 am
[2017-10-28] MEDS: Finasteride 5 MG TABLET PO SCH (08:43)
[2017-10-28] MEDS: Nicotine 21 MG PATCH.TD24 TD SCH (08:43)
[2017-10-28] MEDS: Aspirin 81 MG TAB.CHEW PO SCH (08:43)
[2017-10-28] MEDS: Furosemide 40 MG TABLET PO SCH ×2 (08:45→21:11)
--- NOTE | 2017-10-28 12:57 | Cardiology Progress Note ---
Date of Encounter: 10/28/17 Time of Encounter: 12:00 Assessment and Plan (1) STEMI (ST elevation myocardial infarction) Current Visit: Yes Status: Acute S/p acute inferior NH 10/25/17 with PTCA and DWIGHT to the left circumflex artery ( culprit leasion). There was a 40% stenosis in LMCA, 60% stenosis pLAD, 60-70% stenosis mLAD, 60% stenosis in the 1st diagonal artery, and 65% stenosis in the distal Lcx artery remaining. TTE showed preserved EF, 65-70%, moderate LVH, and severely dilated LA. Continue DAPT, statin. Not on bb due to hypotension and bradycardia during and after LHC for NH. previously on dopamine and now weaned off. Consider low dose bb prior to d/c if able. Patient stable currently. Anemia, normocytic, likely from CKD and recent surgery. No acute bleeding. On Maintain Hgb > 8, transfuse if necessary. Importance of DAPT for one year reviewed with patient. Cardiac rehab once able. From NH standpoint no driving for 1 week, no heavy lifting over 10 lbs for a week. Out patient f/u will be made one week after discharge. Qualifiers: Involved coronary artery: left circumflex coronary artery Qualified Code(s) : I21.21 - ST elevation (STEMI) myocardial infarction involving left circumflex coronary artery (2) Chronic atrial fibrillation Current Visit: No Status: Chronic H/o chroic afib. Avg HR 72 bpm. Nocturnal bradycardia noted overnight. No daytime bradycardia. No AV krissy blockers at this time due to hypotension and HR low at times. Add in future if needed. Eliquis on hold. Re-start when ok from surgery standpoint. Post-op anemia/ chronic anemia requiring blood transfusion yesterday. Discussion w patient/family: The assessment and plan as outlined above was discussed with the patient and/or family members who expressed understanding and agreement. All questions were answered. Thank you for involving us in the care of your patient. Please call with any questions. Subjective Principal diagnosis: Peripheral vascular disease, bradycardia, CAD Interval history: Mr. Sims is extubated to nasal cannula. He denies chest pain or SOB. Objective Vital Signs, Last 4 Hours Temp Pulse Resp BP Pulse Ox 10/28/17 12:00 71 18 113/64 92 10/28/17 11:43 98.0 F 10/28/17 11:00 62 20 101/50 93 10/28/17 10:00 57 18 101/54 97 10/28/17 09:00 54 16 99/53 97 General: Conversant, No Apparent Distress HEENT: Atraumatic, Normocephaly, Mucus Membranes Moist Neck: No JVD, Normal carotid pulses Cardiac: Reg Rate and Rhythm, Normal S1 and S2, No Murmur Lungs: Normal Breath Sounds, No Wheeze, Rales, Rhonchi Neuro: Alert and responsive, No focal deficits noted Abdomen: Soft, Non-Tender Skin: No rashes noted on visualized skin Musculoskeletal: No Chest Wall Tenderness Extremities: No Clubbing, No Cyanosis, Other (Doppler pulses in BLE. 1+ edema RLE. ) Results 10/28/17 03:30 10/28/17 03:30 Lab Results 10/27/17 10/27/17 10/28/17 18:50 18:50 03:30 WBC 6.4 7.1 Hgb 8.6 L 8.3 L Hct 25.7 L 24.8 L Plt Count 118 L 123 L INR 1.1 APTT 26.7 Sodium Potassium Chloride Carbon Dioxide BUN Creatinine Glucose Calcium Magnesium 10/28/17 10/28/17 03:30 03:30 WBC Hgb Hct Plt Count INR APTT Sodium 133 L Potassium 4.0 Chloride 107 Carbon Dioxide 23 BUN 31 H Creatinine 1.89 H Glucose 115 H Calcium 8.2 L Magnesium 1.9 - Imaging and Cardiology Echo: report reviewed Cardiac cath: report reviewed - EKG Interpretation EKG results cardiology: personally reviewed - VTE Documentation of Mechanical Device: Intermittent pneumatic compression device Consult Discharge Plan - Plan Referrals: Ye Guzman MD [Partnered Physician] - 11/25/17 2:50 pm [place],PCP [Primary Care Provider] - 10/30/17 10:45 am
--- NOTE | 2017-10-28 13:12 | Electrocardiograph Report ---
[address] [place], [place] [address] Test Date: 2017-10-25 Pat Name: Stewart Sims Department: 109 Room: 06 Gender: M Head Housekeeper: : 1940 Requested By: Seng Johnson Order Number: [id number] Reading MD: Seng Johnson Measurements Intervals [place] Rate: 64 P: [place]: 0 QRS: -21 QRSD: 152 T: -24 QT: 425 QTc: 435 Interpretive Statements ATRIAL FIBRILLATION BORDERLINE LEFT AXIS DEVIATION RIGHT BUNDLE BRANCH BLOCK Electronically Signed On 10-28-2017 8:59:35 EDT by Seng Johnson
--- NOTE | 2017-10-28 13:12 | Electrocardiograph Report ---
[place] [address] [place], [place] [address] Test Date: 2017-10-25 Pat Name: Stewart Sims Department: 109 Room: 06 Gender: Inspector Poising: : 1940 Requested By: Ashu Baltazar Order Number: [id number] Reading MD: Seng Johnson Measurements Intervals [place] Rate: 99 P: [place]: 0 QRS: 43 QRSD: 154 T: -20 QT: 336 QTc: 392 Interpretive Statements ATRIAL FIBRILLATION RIGHT BUNDLE BRANCH BLOCK INFERIOR CURRENT OF INJURY - ACUTE CT Electronically Signed On 10-28-2017 9:02:18 EDT by Seng Johnson
--- NOTE | 2017-10-28 13:12 | Electrocardiograph Report ---
[address] [place] [address] Test Date: 2017-10-25 Pat Name: Stewart Sims Department: 109 Room: 06 Gender: Manager Control: : 1940 Requested By: Ye Guzman Order Number: [id number] Reading MD: Seng Johnson Measurements Intervals [place] Rate: 49 P: CT: 0 QRS: -21 QRSD: 126 T: -17 QT: 452 QTc: 423 Interpretive Statements ATRIAL FIBRILLATION INFERIOR MYOCARDIAL INFARCTION, OF INDETERMINATE AGE WITH POSTERIOR EXTENSION Electronically Signed On 10-28-2017 9:00:35 EDT by Seng Johnson
--- NOTE | 2017-10-28 13:12 | Electrocardiograph Report ---
[address] [place], [place] [address] Test Date: 2017-10-25 Pat Name: Stewart Sims Department: 109 Room: 06 Gender: [employer] Supervisor: : 1940 Requested By: Fabiano Franco Order Number: [id number] Reading MD: Seng Johnson Measurements Intervals [place] Rate: 78 P: [place]: 0 QRS: -5 QRSD: 148 T: -30 QT: 400 QTc: 434 Interpretive Statements ATRIAL FIBRILLATION RIGHT BUNDLE BRANCH BLOCK Electronically Signed On 10-28-2017 9:03:48 EDT by Seng Johnson
--- NOTE | 2017-10-28 13:14 | Electrocardiograph Report ---
[address] [place], [place] [address] Test Date: 2017-10-27 Pat Name: Stewart Sims Department: 109 Room: 06 Gender: M Cisco Administrator: : 1940 Requested By: Gene Giraldo Order Number: [id number] Reading MD: Seng Johnson Measurements Intervals [place] Rate: 80 P: [place]: 0 QRS: -4 QRSD: 154 T: -30 QT: 404 QTc: 440 Interpretive Statements ATRIAL FIBRILLATION RIGHT BUNDLE BRANCH BLOCK Electronically Signed On 10-28-2017 10:08:41 EDT by Seng Johnson
--- NOTE | 2017-10-28 13:14 | Electrocardiograph Report ---
[address] [address] Test Date: 2017-10-27 Pat Name: Stewart Sims Department: 109 Room: 06 Gender: M Gear Nicker: : 1940 Requested By: Sweta Lemus Order Number: [id number] Reading MD: Seng Johnson Measurements Intervals [place] Rate: 80 P: [place]: 0 QRS: 3 QRSD: 150 T: -35 QT: 399 QTc: 435 Interpretive Statements ATRIAL FIBRILLATION RIGHT BUNDLE BRANCH BLOCK Electronically Signed On 10-28-2017 10:07:08 EDT by Seng Johnson
--- NOTE | 2017-10-28 14:44 | Vascular/Endovas Progress Note ---
Date of Encounter: 10/28/17 Time of Encounter: 08:15 - Assessment and plan (1) Atherosclerosis of [place] artery of both lower extremities with intermittent claudication Current Visit: Yes Status: Chronic The patient is postoperative day #4 after resection of a right femoral aneurysm , right femoral to popliteal artery bypass and right tibial thrombectomy. His wounds appear to be healing well. His wounds are healing well. He has polyphasic signals. (2) Chronic atrial fibrillation Current Visit: No Status: Chronic The patient has chronic atrial fibrillation. May resume anticoagulation today. (3) Dyslipidemia Current Visit: No Status: Chronic (4) CKD (chronic kidney disease), stage III Current Visit: No Status: Chronic His creatinine is relatively stable. Continue with intravenous hydration. (5) COPD (chronic obstructive pulmonary disease) Current Visit: No Status: Chronic Qualifiers: COPD type: emphysema Emphysema type: panlobular Qualified Code(s): J43.1 - Panlobular emphysema (6) CAD (coronary artery disease) Current Visit: No Status: Chronic The patient required coronary stent placement. He now denies chest pain or shortness of breath. His pressors are being weaned. Qualifiers: Coronary Disease-Associated Artery/Lesion type: [place] artery [place] vs. transplanted heart: [place] heart Associated angina: without angina Qualified Code(s): I25.10 - Atherosclerotic heart disease of [place] coronary artery without angina pectoris (7) Tobacco abuse Current Visit: Yes Status: Chronic (8) Chronic anemia Current Visit: Yes Status: Chronic The patient has chronic anemia and acute expected postoperative blood loss anemia. He was taken to the operating room after surgery due to hypotension that was thought to be related to a hemtoma. However, no significant hematoma was identified. The patients hypotension was likely cardiogenic. He has no evidence of ongoing blood loss. - Subjective Interval history: The patient is alert and comfortable. He reports adequate pain control and his leg feels well. He denies any chest pain or shortness of breath. Vital Signs, Last 4 Hours Temp Pulse Resp BP Pulse Ox 10/28/17 13:00 64 18 96/48 96 10/28/17 12:00 71 18 113/64 92 10/28/17 11:43 98.0 F 10/28/17 11:00 62 20 101/50 93 - Physical Examination General: Present: Conversant, No Apparent Distress Cardiac: Present: Reg Rate and Rhythm Lungs: Present: Normal Breath Sounds Neuro: Present: Alert and responsive, No focal deficits noted Vascular: Present: Normal capillary refill, Surgical incisions (clen, dry and intact). Absent: Cyanosis, Edema Abdomen: Present: Soft - VTE Documentation of Mechanical Device: Intermittent pneumatic compression device Results 10/28/17 03:30 10/28/17 03:30 Lab Results, Last 24 hours 10/27/17 10/27/17 10/28/17 18:50 18:50 03:30 WBC 6.4 7.1 Hgb 8.6 L 8.3 L Hct 25.7 L 24.8 L Plt Count 118 L 123 L INR 1.1 APTT 26.7 Sodium Potassium Chloride Carbon Dioxide BUN Creatinine Glucose Calcium Magnesium 10/28/17 10/28/17 03:30 03:30 WBC Hgb Hct Plt Count INR APTT Sodium 133 L Potassium 4.0 Chloride 107 Carbon Dioxide 23 BUN 31 H Creatinine 1.89 H Glucose 115 H Calcium 8.2 L Magnesium 1.9 Consult Discharge Plan - Plan Referrals: Ye Guzman MD [Partnered Physician] - 11/25/17 2:50 pm [place],PCP [Primary Care Provider] - 10/30/17 10:45 am
[2017-10-28] MEDS: Apixaban 5 MG TABLET PO SCH (21:12)
[2017-10-29 05:03] LABS: Hematocrit 25.3 % (37.5-50.1); Hemoglobin 8.3 g/dL (12.9-16.9); Mean Corpuscular HGB Conc 32.8 g/dL (31.6-35.5); Mean Corpuscular Hemoglobin 29.6 pg (28.0-33.3); Mean Corpuscular Volume 90.4 fL (83.0-100.0); Mean Platelet Volume 10.2 fL (9.4-12.4); Platelet Count 150 K/mcL (140-400); Red Cell Distribution Width 14.1 % (11.5-14.5)
[2017-10-29 05:27] LABS: Calcium 8.5 mg/dL (8.6-10.3); Magnesium 1.7 mg/dL (1.6-2.6); Phosphorous 2.8 mg/dL (2.7-4.5); Potassium 4.1 mEq/L (3.5-5.1)
[2017-10-29] MEDS: Finasteride 5 MG TABLET PO SCH (08:03)
[2017-10-29] MEDS: Aspirin 81 MG TAB.CHEW PO SCH (08:03)
[2017-10-29] MEDS: Furosemide 40 MG TABLET PO SCH ×2 (08:03→20:44)
[2017-10-29] MEDS: Nicotine 21 MG PATCH.TD24 TD SCH (08:04)
[2017-10-29] MEDS: Apixaban 5 MG TABLET PO SCH ×2 (08:04→20:44)
--- NOTE | 2017-10-29 08:47 | Pulmonology Progress Note ---
<Sewta Lemus - Last Filed: 10/29/17 10:48> Date of Encounter: 10/29/17 Time of Encounter: 08:47 Assessment and Plan (1) Hypotension Current Visit: No Status: Acute Blood pressure continues to be borderline low requiring low dose dopamine. Likely secondary to inferior ID. -Will wean dopamine as tolerated Qualifiers: Hypotension type: unspecified hypotension type Qualified Code(s): I95.9 - Hypotension, unspecified (2) Bradycardia Current Visit: Yes Status: Acute Bradycardia requiring dopamine. Likely related to inferior wall ID. No permanent pacemaker. -Weaning dopamine as tolerated -holding home beta blockers (3) Peripheral vascular disease Current Visit: Yes Status: Acute s/p femoral- popliteal bypass resection of right femoral aneurysm. -Management per vascular surgery (4) STEMI (ST elevation myocardial infarction) Current Visit: Yes Status: Acute s/p 10/25/2017 PTCA and DWIGHT -cardiology restarted Eliquis per vascular surgery recommendation. Cardiology recommends restarting beta abhi when able, cardiology signed off -continue Lipitor and aspirin Qualifiers: Involved coronary artery: left circumflex coronary artery Qualified Code(s) : I21.21 - ST elevation (STEMI) myocardial infarction involving left circumflex coronary artery (5) A-fib Current Visit: No Status: Acute History of known A.fib anticoagulated with Eliquis -Eliquis restarted per vascular surgery approval -beta abhi being held due to hypotension and bradycardia Qualifiers: Atrial fibrillation type: chronic Qualified Code(s): I48.2 - Chronic atrial fibrillation (6) CKD (chronic kidney disease) Current Visit: No Status: Acute History of C KD stage III creatinine 1.64 (at baseline) -Continue to monitor serum creatinine -avoid nephrotoxic agents Qualifiers: Chronic kidney disease stage: stage 4 (severe) Qualified Code(s): N18.4 - Chronic kidney disease, stage 4 (severe) (7) DVT prophylaxis Current Visit: No Status: Acute On eliquis Subjective Principal diagnosis: Peripheral vascular disease, bradycardia, CAD Interval history: Patient alert and oriented when examined at bedside. He denied chest pain, shortness of breath, fever, chills. He has no complaints at this time. Objective PUL Vital signs: Last Vital Signs Temp 98.0 F 10/29/17 07:39 Pulse 65 10/29/17 06:00 Resp 22 10/29/17 06:00 BP 95/51 10/29/17 06:00 Pulse Ox 93 10/29/17 06:00 General appearance: no acute distress Eyes: nonicteric ENT: oropharynx moist Neck: supple Effort: normal Auscultation: bilateral: wheezes (Expiratory) Cardiovascular: irregular rhythm Gastrointestinal: normoactive bowel sounds, soft, non-tender, non-distended Integumentary: other (Ecchymosis on scrotum and right groin, incision intact and healing well) Extremities: no cyanosis, no edema, pulses normal Musculoskeletal: no deformities normal mental status, non-focal exam mood appropriate, affect normal Results - Laboratory Findings CBC and BMP: 10/29/17 04:00 10/29/17 04:00 ABG ABG pH 7.42 pH Units (7.32-7.45) 10/26/17 05:55 ABG pCO2 38 mmHg (35-45) 10/26/17 05:55 ABG pO2 68 mmHg (85-104) L 10/26/17 05:55 ABG O2 Saturation 94 % (95-98) L 10/26/17 05:55 PT/INR, D-dimer PT 11.9 Seconds (9.4-12.1) 10/27/17 18:50 Abnormal lab findings: Abnormal lab results RBC 2.80 M/mcL (4.19-5.50) L 10/29/17 04:00 Hgb 8.3 g/dL (12.9-16.9) L 10/29/17 04:00 Hct 25.3 % (37.5-50.1) L 10/29/17 04:00 ABG pO2 68 mmHg (85-104) L 10/26/17 05:55 ABG O2 Saturation 94 % (95-98) L 10/26/17 05:55 ABG Hematocrit 34.0 % (37.5-50.1) L 10/24/17 11:43 ABG Chloride 109 mEq/L (98-107) H 10/24/17 11:43 Glucose 105 mg/dL (60-95) H 10/24/17 11:43 Sodium 134 mEq/L (136-145) L 10/29/17 04:00 BUN 31 mg/dL (8-23) H 10/29/17 04:00 Creatinine 1.64 mg/dL (0.70-1.30) H 10/29/17 04:00 Est GFR ( Amer) 49 (> 60) L 10/29/17 04:00 Est GFR (Non-Af Amer) 41 (> 60) L 10/29/17 04:00 POC Glucose 161 mg/dL (70-99) H 10/25/17 21:55 Calcium 8.5 mg/dL (8.6-10.3) L 10/29/17 04:00 Troponin I 0.42 ng/mL (< 0.04) H* 10/25/17 16:09 - Clinical Findings Intake & Output: Intake & Output 10/28/17 10/29/17 10/29/17 23:59 07:59 15:59 Intake Total 315 / 315 55 / 55 Output Total 1075 / 1075 450 / 450 Balance -760 / -760 -395 / -395 Weight 85 kg - VTE Documentation of Mechanical Device: Intermittent pneumatic compression device Consult Discharge Plan - Plan Referrals: Ye Guzman MD [Partnered Physician] - 11/25/17 2:50 pm [place],PCP [Primary Care Provider] - 10/30/17 10:45 am <Rudy Agrawal W - Last Filed: 10/29/17 13:49> Date of Encounter: 10/29/17 Assessment and Plan (1) Hypotension Current Visit: No Status: Acute Qualifiers: Hypotension type: unspecified hypotension type Qualified Code(s): I95.9 - Hypotension, unspecified (2) Bradycardia Current Visit: Yes Status: Acute (3) Peripheral vascular disease Current Visit: Yes Status: Acute (4) STEMI (ST elevation myocardial infarction) Current Visit: Yes Status: Acute Qualifiers: Involved coronary artery: left circumflex coronary artery Qualified Code(s) : I21.21 - ST elevation (STEMI) myocardial infarction involving left circumflex coronary artery (5) A-fib Current Visit: No Status: Acute Qualifiers: Atrial fibrillation type: chronic Qualified Code(s): I48.2 - Chronic atrial fibrillation Objective PUL Vital signs: Last Vital Signs Temp 98.0 F 10/29/17 07:39 Pulse 61 10/29/17 09:00 Resp 19 10/29/17 09:24 BP 115/53 10/29/17 09:00 Pulse Ox 94 10/29/17 09:24 Results - Laboratory Findings CBC and BMP: 10/29/17 04:00 10/29/17 04:00 ABG ABG pH 7.42 pH Units (7.32-7.45) 10/26/17 05:55 ABG pCO2 38 mmHg (35-45) 10/26/17 05:55 ABG pO2 68 mmHg (85-104) L 10/26/17 05:55 ABG O2 Saturation 94 % (95-98) L 10/26/17 05:55 PT/INR, D-dimer PT 11.9 Seconds (9.4-12.1) 10/27/17 18:50 Abnormal lab findings: Abnormal lab results RBC 2.80 M/mcL (4.19-5.50) L 10/29/17 04:00 Hgb 8.3 g/dL (12.9-16.9) L 10/29/17 04:00 Hct 25.3 % (37.5-50.1) L 10/29/17 04:00 ABG pO2 68 mmHg (85-104) L 10/26/17 05:55 ABG O2 Saturation 94 % (95-98) L 10/26/17 05:55 ABG Hematocrit 34.0 % (37.5-50.1) L 10/24/17 11:43 ABG Chloride 109 mEq/L (98-107) H 10/24/17 11:43 Glucose 105 mg/dL (60-95) H 10/24/17 11:43 Sodium 134 mEq/L (136-145) L 10/29/17 04:00 BUN 31 mg/dL (8-23) H 10/29/17 04:00 Creatinine 1.64 mg/dL (0.70-1.30) H 10/29/17 04:00 Est GFR ( Amer) 49 (> 60) L 10/29/17 04:00 Est GFR (Non-Af Amer) 41 (> 60) L 10/29/17 04:00 POC Glucose 161 mg/dL (70-99) H 10/25/17 21:55 Calcium 8.5 mg/dL (8.6-10.3) L 10/29/17 04:00 Troponin I 0.42 ng/mL (< 0.04) H* 10/25/17 16:09 - Clinical Findings Intake & Output: Intake & Output 10/28/17 10/29/17 10/29/17 23:59 07:59 15:59 Intake Total 315 / 315 55 / 55 Output Total 1075 / 1075 450 / 450 Balance -760 / -760 -395 / -395 Weight 85 kg - Attending Attestation I examined this patient and my medical decision-making was reviewed with the Resident Physician. I agree with the documented findings, disposition and treatment plan as described except to the extent set forth below. We independently had [id number] contact with the patient Patient seen and examined at bedside Labs, radiology, chart personally reviewed. Management was reviewed during multidisciplinary critical care rounds. 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 Lines: All lines examined without evidence of infection : Dispo: Stable for transfer out of ICU to step down CODE: Full
[2017-10-29 18:54] LABS: Calcium 8.4 mg/dL (8.6-10.3); Potassium 4.1 mEq/L (3.5-5.1)
--- NOTE | 2017-10-29 22:02 | Vascular/Endovas Progress Note ---
Date of Encounter: 10/29/17 Time of Encounter: 11:10 - Assessment and plan (1) Atherosclerosis of [place] artery of both lower extremities with intermittent claudication Current Visit: Yes Status: Chronic The patient is postoperative day #5 after resection of a right femoral aneurysm , right femoral to popliteal artery bypass and right tibial thrombectomy. He is healing well. Will consult PT for mobilization. Patient may require home health versus rehab. (2) Chronic atrial fibrillation Current Visit: No Status: Chronic The patient has chronic atrial fibrillation. Continue with anticoagulation. (3) Dyslipidemia Current Visit: No Status: Chronic (4) CKD (chronic kidney disease), stage III Current Visit: No Status: Chronic (5) COPD (chronic obstructive pulmonary disease) Current Visit: No Status: Chronic Qualifiers: COPD type: emphysema Emphysema type: panlobular Qualified Code(s): J43.1 - Panlobular emphysema (6) CAD (coronary artery disease) Current Visit: No Status: Chronic The patient required coronary stent placement. He now denies chest pain or shortness of breath. Continue to wean off pressors. Qualifiers: Coronary Disease-Associated Artery/Lesion type: [place] artery [place] vs. transplanted heart: [place] heart Associated angina: without angina Qualified Code(s): I25.10 - Atherosclerotic heart disease of [place] coronary artery without angina pectoris (7) Tobacco abuse Current Visit: Yes Status: Chronic (8) Chronic anemia Current Visit: Yes Status: Chronic The patient has chronic anemia and acute expected postoperative blood loss anemia. He was taken to the operating room after surgery due to hypotension that was thought to be related to a hemtoma. However, no significant hematoma was identified. The patients hypotension was likely cardiogenic. He has no evidence of ongoing blood loss. - Subjective Interval history: The patient reports that he feels well today. He has adequate pain control. He denies chest pain or shortness of breath. Vital Signs, Last 4 Hours Temp Pulse Resp BP Pulse Ox 10/29/17 21:14 98.5 F 10/29/17 21:00 70 16 124/64 95 10/29/17 20:00 72 16 112/46 96 10/29/17 19:00 74 14 106/53 95 - Physical Examination General: Present: Conversant, No Apparent Distress Cardiac: Present: Irregular Rhythm Lungs: Present: Normal Breath Sounds Neuro: Present: Alert and responsive, No focal deficits noted Vascular: Present: Normal capillary refill, Pulse, normal, Surgical incisions ( incisions healing well) Abdomen: Present: Soft Skin: Present: No rashes noted on visualized skin - VTE Documentation of Mechanical Device: Intermittent pneumatic compression device Results 10/29/17 04:00 10/29/17 18:29 Lab Results, Last 24 hours 10/29/17 10/29/17 10/29/17 04:00 04:00 04:00 WBC 6.4 Hgb 8.3 L Hct 25.3 L Plt Count 150 Sodium 134 L Potassium 4.1 Chloride 105 Carbon Dioxide 24 BUN 31 H Creatinine 1.64 H Glucose 96 Calcium 8.5 L Magnesium 1.7 10/29/17 18:29 WBC Hgb Hct Plt Count Sodium 137 Potassium 4.1 Chloride 106 Carbon Dioxide 23 BUN 32 H Creatinine 1.67 H Glucose 110 H Calcium 8.4 L Magnesium 2.0 Consult Discharge Plan - Plan Referrals: Ye Guzman MD [Partnered Physician] - 11/25/17 2:50 pm [facility],PCP [Primary Care Provider] - 10/30/17 10:45 am
[2017-10-30 04:18] LABS: Basophils % 0.4 %; Eosinophils # 0.3 K/mcL (0.0-0.6); Eosinophils % 5.2 %; Hematocrit 24.7 % (37.5-50.1); Hemoglobin 8.1 g/dL (12.9-16.9); Immature Granulocytes % 0.5 % (0-4); Lymphocytes # 0.8 K/mcL (0.6-4.6); Lymphocytes % 14.2 %; Mean Corpuscular HGB Conc 32.8 g/dL (31.6-35.5); Mean Corpuscular Hemoglobin 29.6 pg (28.0-33.3); Mean Corpuscular Volume 90.1 fL (83.0-100.0); Mean Platelet Volume 9.8 fL (9.4-12.4); Monocytes # 0.6 K/mcL (0.0-1.3); Monocytes % 10.3 %; Neutrophils # 3.9 K/mcL (1.6-8.9); Platelet Count 161 K/mcL (140-400); Red Blood Count 2.74 M/mcL (4.19-5.50); Red Cell Distribution Width 14.3 % (11.5-14.5); Segmented Neutrophils % 69.4 %
[2017-10-30 04:35] LABS: Calcium 8.3 mg/dL (8.6-10.3); Potassium 4.3 mEq/L (3.5-5.1)
[2017-10-30] MEDS: Nicotine 21 MG PATCH.TD24 TD SCH (08:07)
[2017-10-30] MEDS: Apixaban 5 MG TABLET PO SCH ×2 (08:09→20:20)
[2017-10-30] MEDS: Aspirin 81 MG TAB.CHEW PO SCH (08:09)
[2017-10-30] MEDS: Furosemide 40 MG TABLET PO SCH ×2 (08:10→16:15)
[2017-10-30] MEDS: Finasteride 5 MG TABLET PO SCH (08:10)
--- NOTE | 2017-10-30 09:14 | Pulmonology Progress Note ---
<Rudy Agrawal W - Last Filed: 10/30/17 09:40> Date of Encounter: 10/30/17 Assessment and Plan (1) Hypotension Current Visit: No Status: Acute (2) Bradycardia Current Visit: Yes Status: Acute (3) Peripheral vascular disease Current Visit: Yes Status: Acute (4) STEMI (ST elevation myocardial infarction) Current Visit: Yes Status: Acute (5) A-fib Current Visit: No Status: Acute Objective PUL Vital signs: Last Vital Signs Temp 98.6 F 10/30/17 03:00 Pulse 84 10/30/17 09:00 Resp 20 10/30/17 09:00 BP 107/51 10/30/17 09:00 Pulse Ox 94 10/30/17 09:00 Results - Laboratory Findings CBC and BMP: 10/30/17 04:00 10/30/17 04:00 ABG ABG pH 7.42 pH Units (7.32-7.45) 10/26/17 05:55 ABG pCO2 38 mmHg (35-45) 10/26/17 05:55 ABG pO2 68 mmHg (85-104) L 10/26/17 05:55 ABG O2 Saturation 94 % (95-98) L 10/26/17 05:55 PT/INR, D-dimer PT 11.9 Seconds (9.4-12.1) 10/27/17 18:50 Abnormal lab findings: Abnormal lab results RBC 2.74 M/mcL (4.19-5.50) L 10/30/17 04:00 Hgb 8.1 g/dL (12.9-16.9) L 10/30/17 04:00 Hct 24.7 % (37.5-50.1) L 10/30/17 04:00 ABG pO2 68 mmHg (85-104) L 10/26/17 05:55 ABG O2 Saturation 94 % (95-98) L 10/26/17 05:55 ABG Hematocrit 34.0 % (37.5-50.1) L 10/24/17 11:43 ABG Chloride 109 mEq/L (98-107) H 10/24/17 11:43 Glucose 105 mg/dL (60-95) H 10/24/17 11:43 BUN 31 mg/dL (8-23) H 10/30/17 04:00 Creatinine 1.51 mg/dL (0.70-1.30) H 10/30/17 04:00 Est GFR ( Amer) 54 (> 60) L 10/30/17 04:00 Est GFR (Non-Af Amer) 45 (> 60) L 10/30/17 04:00 POC Glucose 161 mg/dL (70-99) H 10/25/17 21:55 Calcium 8.3 mg/dL (8.6-10.3) L 10/30/17 04:00 Troponin I 0.42 ng/mL (< 0.04) H* 10/25/17 16:09 - Clinical Findings Intake & Output: Intake & Output 10/29/17 10/30/17 10/30/17 23:59 07:59 15:59 Intake Total 0 / 0 0 / 0 360 / 360 Output Total 300 / 300 600 / 600 Balance -300 / -300 -600 / -600 360 / 360 Weight 88.5 kg Consult Discharge Plan - Plan Referrals: Ye Guzman MD [Partnered Physician] - 11/25/17 2:50 pm [facility],PCP [Primary Care Provider] - 10/30/17 10:45 am - Attending Attestation I examined this patient and my medical decision-making was reviewed with the Resident Physician. I agree with the documented findings, disposition and treatment plan as described except to the extent set forth below. We independently had [id number] contact with the patient Patient seen and examined at bedside Labs, radiology, chart personally reviewed. Management was reviewed during multidisciplinary critical care rounds. Patient continues to make progress his been weaned off the dopamine stable for transfer out of ICU and will need PT OT consultation prior to discharge we will defer further management to vascular surgery service please re-consult with any questions <Sweta Lemus - Last Filed: 10/30/17 11:03> Date of Encounter: 10/30/17 Time of Encounter: 09:14 Assessment and Plan (1) Hypotension Current Visit: No Status: Acute Blood pressure continues to be borderline but is no longer requiring dopamine. Likely secondary to inferior SD. -dopamine stopped Qualifiers: Hypotension type: unspecified hypotension type Qualified Code(s): I95.9 - Hypotension, unspecified (2) Bradycardia Current Visit: Yes Status: Acute Improved Bradycardia. Likely related to inferior wall SD. No permanent pacemaker. -Dopamine stopped -beta abhi may be restarted once BP improved (3) Peripheral vascular disease Current Visit: Yes Status: Acute s/p femoral- popliteal bypass resection of right femoral aneurysm. Patient has not required pain medication and has not complained about pain. -Management per vascular surgery -[place] and Tylenol PRN pain -oxycodone stopped -PT/OT consulted for evaluation (4) STEMI (ST elevation myocardial infarction) Current Visit: Yes Status: Acute s/p 10/25/2017 PTCA and DWIGHT -cardiology restarted Eliquis per vascular surgery recommendation. Cardiology recommends restarting beta abhi when able, cardiology signed off -continue Lipitor and aspirin Qualifiers: Involved coronary artery: left circumflex coronary artery Qualified Code(s) : I21.21 - ST elevation (STEMI) myocardial infarction involving left circumflex coronary artery (5) A-fib Current Visit: No Status: Acute History of known A.fib anticoagulated with Eliquis -Eliquis restarted per vascular surgery approval -beta abhi being held due to hypotension and bradycardia Qualifiers: Atrial fibrillation type: chronic Qualified Code(s): I48.2 - Chronic atrial fibrillation (6) CKD (chronic kidney disease) Current Visit: No Status: Acute History of C KD stage III creatinine 1.51 (at baseline) -Continue to monitor serum creatinine -avoid nephrotoxic agents Qualifiers: Chronic kidney disease stage: stage 4 (severe) Qualified Code(s): N18.4 - Chronic kidney disease, stage 4 (severe) (7) DVT prophylaxis Current Visit: No Status: Acute On eliquis Subjective Principal diagnosis: Peripheral vascular disease, bradycardia, CAD Interval history: Patient alert and oriented when examined at bedside. He denied chest pain, shortness of breath, fever, chills. He has no complaints at this time. Objective PUL Vital signs: Last Vital Signs Temp 98.6 F 10/30/17 03:00 Pulse 84 10/30/17 09:00 Resp 20 10/30/17 09:00 BP 107/51 10/30/17 09:00 Pulse Ox 94 10/30/17 09:00 General appearance: no acute distress Eyes: nonicteric ENT: oropharynx moist Neck: supple Effort: normal Auscultation: bilateral: clear Cardiovascular: irregular rhythm Gastrointestinal: normoactive bowel sounds, soft, non-tender, non-distended Integumentary: normal Extremities: no cyanosis, no edema Musculoskeletal: no deformities normal mental status, non-focal exam mood appropriate, affect normal Results - Laboratory Findings CBC and BMP: 10/30/17 04:00 10/30/17 04:00 ABG ABG pH 7.42 pH Units (7.32-7.45) 10/26/17 05:55 ABG pCO2 38 mmHg (35-45) 10/26/17 05:55 ABG pO2 68 mmHg (85-104) L 10/26/17 05:55 ABG O2 Saturation 94 % (95-98) L 10/26/17 05:55 PT/INR, D-dimer PT 11.9 Seconds (9.4-12.1) 10/27/17 18:50 Abnormal lab findings: Abnormal lab results RBC 2.74 M/mcL (4.19-5.50) L 10/30/17 04:00 Hgb 8.1 g/dL (12.9-16.9) L 10/30/17 04:00 Hct 24.7 % (37.5-50.1) L 10/30/17 04:00 ABG pO2 68 mmHg (85-104) L 10/26/17 05:55 ABG O2 Saturation 94 % (95-98) L 10/26/17 05:55 ABG Hematocrit 34.0 % (37.5-50.1) L 10/24/17 11:43 ABG Chloride 109 mEq/L (98-107) H 10/24/17 11:43 Glucose 105 mg/dL (60-95) H 10/24/17 11:43 BUN 31 mg/dL (8-23) H 10/30/17 04:00 Creatinine 1.51 mg/dL (0.70-1.30) H 10/30/17 04:00 Est GFR ( Amer) 54 (> 60) L 10/30/17 04:00 Est GFR (Non-Af Amer) 45 (> 60) L 10/30/17 04:00 POC Glucose 161 mg/dL (70-99) H 10/25/17 21:55 Calcium 8.3 mg/dL (8.6-10.3) L 10/30/17 04:00 Troponin I 0.42 ng/mL (< 0.04) H* 10/25/17 16:09 - Clinical Findings Intake & Output: Intake & Output 10/29/17 10/30/17 10/30/17 23:59 07:59 15:59 Intake Total 0 / 0 0 / 0 360 / 360 Output Total 300 / 300 600 / 600 Balance -300 / -300 -600 / -600 360 / 360 Weight 88.5 kg - VTE Documentation of Mechanical Device: Intermittent pneumatic compression device
[2017-10-30] MEDS ORDERED: Naloxone 0.4 MG/ML INJ IVP PRN (09:31)
[2017-10-30] MEDS ORDERED: *HR* HYDROcodone/Acet 5/325 mg TABLET PO PRN (09:31)
[2017-10-30] MEDS ORDERED: Ipratropium/Albuterol Neb 3 ML IH PRN (09:31)
[2017-10-30] MEDS ORDERED: Nitroglycerin 0.4 MG TAB.SUBL SL PRN (09:31)
[2017-10-30] MEDS ORDERED: OXYCODONE Oral CONC 10 MG/0.5 ML ORAL.SYG SL PRN ×2 (09:31)
[2017-10-30] MEDS ORDERED: Ondansetron 4 MG/2 ML VIAL IVP PRN (09:31)
[2017-10-30] MEDS ORDERED: Potassium Chloride 10 MEQ in 0.9 % Sodium Chloride 100 ML IVPB PRN (09:31)
[2017-10-30] MEDS ORDERED: Acetaminophen 325 MG TABLET PO PRN (09:31)
--- NOTE | 2017-10-30 09:35 | Vascular/Endovas Progress Note ---
Date of Encounter: 10/30/17 Time of Encounter: 08:30 - Assessment and plan (1) Atherosclerosis of [place] artery of both lower extremities with intermittent claudication Current Visit: Yes Status: Chronic The patient is postoperative day # 6 after resection of a right femoral aneurysm , right femoral to popliteal artery bypass and right tibial thrombectomy. His wounds are healing. He will have progressive ambulation. Physical therapy evaluation is ongoing. Further evaluation to determine discharged home versus rehabilitation. Possible discharge later today if patient is able to ambulate well. (2) Chronic atrial fibrillation Current Visit: No Status: Chronic The patient has chronic atrial fibrillation. Continue with anticoagulation. (3) Dyslipidemia Current Visit: No Status: Chronic (4) CKD (chronic kidney disease), stage III Current Visit: No Status: Chronic (5) COPD (chronic obstructive pulmonary disease) Current Visit: No Status: Chronic Qualifiers: COPD type: emphysema Emphysema type: panlobular Qualified Code(s): J43.1 - Panlobular emphysema (6) CAD (coronary artery disease) Current Visit: No Status: Chronic The patient required coronary stent placement. He now denies chest pain or shortness of breath. Continue to wean off pressors. Qualifiers: Coronary Disease-Associated Artery/Lesion type: [place] artery [place] vs. transplanted heart: [place] heart Associated angina: without angina Qualified Code(s): I25.10 - Atherosclerotic heart disease of [place] coronary artery without angina pectoris (7) Tobacco abuse Current Visit: Yes Status: Chronic (8) Chronic anemia Current Visit: Yes Status: Chronic He is hemodynamically stable with a stable hemoglobin. - Subjective Interval history: The patient states he is alert and comfortable today. He denies any leg pain. He denies chest or shortness of breath. He has been weaned off his pressors. Vital Signs, Last 4 Hours Pulse Resp BP Pulse Ox 10/30/17 09:00 84 20 107/51 94 10/30/17 08:00 68 20 123/55 94 10/30/17 07:00 63 20 95/52 91 10/30/17 05:59 68 24 118/65 92 - Physical Examination General: Present: Conversant, No Apparent Distress Cardiac: Present: Irregular Rhythm Lungs: Present: Normal Breath Sounds, No Wheeze, Rales, Rhonchi Neuro: Present: Alert and responsive, No focal deficits noted Vascular: Present: Normal capillary refill, Pulse, diminished (Lower extremity) , Pulse, normal (Right lower extremity), Surgical incisions (Healing well). Absent: Edema Abdomen: Present: Soft Skin: Present: No rashes noted on visualized skin - VTE Documentation of Mechanical Device: Intermittent pneumatic compression device Results 10/30/17 04:00 10/30/17 04:00 Lab Results, Last 24 hours 10/29/17 10/30/17 10/30/17 18:29 04:00 04:00 WBC 5.6 Hgb 8.1 L Hct 24.7 L Plt Count 161 Sodium 137 136 Potassium 4.1 4.3 Chloride 106 106 Carbon Dioxide 23 24 BUN 32 H 31 H Creatinine 1.67 H 1.51 H Glucose 110 H 86 Calcium 8.4 L 8.3 L Magnesium 2.0 Consult Discharge Plan - Plan Referrals: Ye Guzman MD [Partnered Physician] - 11/25/17 2:50 pm [facility],PCP [Primary Care Provider] - 10/30/17 10:45 am
[2017-10-31] MEDS: Furosemide 40 MG TABLET PO SCH ×2 (08:30→18:19)
[2017-10-31] MEDS: Finasteride 5 MG TABLET PO SCH (08:31)
[2017-10-31] MEDS: Apixaban 5 MG TABLET PO SCH ×2 (08:31→21:41)
[2017-10-31] MEDS: Nicotine 21 MG PATCH.TD24 TD SCH (08:31)
--- NOTE | 2017-10-31 17:51 | Vascular/Endovas Progress Note ---
Date of Encounter: 10/31/17 Time of Encounter: 17:10 - Assessment and plan (1) Atherosclerosis of [place] artery of both lower extremities with intermittent claudication Current Visit: Yes Status: Chronic The patient is postoperative day # 7 after resection of a right femoral aneurysm , right femoral to popliteal artery bypass and right tibial thrombectomy. He continues to heal well. He has had progressive ambulation and will be discharged to home with home health and physical therapy. He will likely be ready for discharge tomorrow. (2) Chronic atrial fibrillation Current Visit: No Status: Chronic (3) Dyslipidemia Current Visit: No Status: Chronic (4) CKD (chronic kidney disease), stage III Current Visit: No Status: Chronic His creatinine is relatively stable. Continue with intravenous hydration. (5) COPD (chronic obstructive pulmonary disease) Current Visit: No Status: Chronic Qualifiers: COPD type: emphysema Emphysema type: panlobular Qualified Code(s): J43.1 - Panlobular emphysema (6) CAD (coronary artery disease) Current Visit: No Status: Chronic The patient required coronary stent placement. He now denies chest pain or shortness of breath. Continue to wean off pressors. Qualifiers: Coronary Disease-Associated Artery/Lesion type: [place] artery [place] vs. transplanted heart: [place] heart Associated angina: without angina Qualified Code(s): I25.10 - Atherosclerotic heart disease of [place] coronary artery without angina pectoris (7) Tobacco abuse Current Visit: Yes Status: Chronic (8) Chronic anemia Current Visit: Yes Status: Chronic He is hemodynamically stable with a stable hemoglobin. - Subjective Interval history: The patient reports that he is feeling better today. He has had progressive ambulation. He states that he plans to go home instead of rehabilitation. He denies chest or shortness of breath. Vital Signs, Last 4 Hours Temp Pulse Resp BP Pulse Ox 10/31/17 16:19 97.9 F 70 18 120/62 94 10/31/17 15:13 71 - Physical Examination General: Present: Conversant Lungs: Present: Normal Breath Sounds Neuro: Present: Alert and responsive, No focal deficits noted Vascular: Present: Pulse, diminished (Pedal signals present in the left lower extremity), Pulse, normal (Right lower extremity), Surgical incisions (Healing well) Abdomen: Present: Soft - VTE Documentation of Mechanical Device: Intermittent pneumatic compression device Results 10/30/17 04:00 10/30/17 04:00 Consult Discharge Plan - Plan Referrals: Ye Guzman MD [Partnered Physician] - 11/25/17 2:50 pm [facility],PCP [Primary Care Provider] - 11/08/17 10:45 am
[2017-11-01 07:09] VITALS: BP 115/64
--- NOTE | 2017-11-01 07:36 | Discharge Summary ---
Date of Encounter: 11/01/17 Time of Encounter: 08:15 - Discharge Diagnosis (1) Atherosclerosis of [place] artery of both lower extremities with intermittent claudication Priority: Primary Status: Chronic Comments: The patient underwent a femoral to popliteal artery bypass as well as a tibial and popliteal thrombectomy with tibial and artery. His wounds are healing well and his right leg was well perfused. He does have vascular disease of the left lower extremity (2) Chronic atrial fibrillation Priority: Secondary Status: Chronic Comments: He remains anticoagulated (3) Dyslipidemia Priority: Secondary Status: Chronic (4) CKD (chronic kidney disease), stage III Priority: Secondary Status: Chronic (5) COPD (chronic obstructive pulmonary disease) Priority: Secondary Status: Chronic Qualifiers: COPD type: emphysema Emphysema type: panlobular Qualified Code(s): J43.1 - Panlobular emphysema (6) CAD (coronary artery disease) Priority: Secondary Status: Chronic Comments: The patient required a coronary stent placement after left heart catheterization due to severe coronary disease. Qualifiers: Coronary Disease-Associated Artery/Lesion type: [place] artery [place] vs. transplanted heart: [place] heart Associated angina: without angina Qualified Code(s): I25.10 - Atherosclerotic heart disease of [place] coronary artery without angina pectoris (7) Tobacco abuse Priority: Secondary Status: Chronic (8) Chronic anemia Priority: Secondary Status: Chronic Comments: The patient has chronic anemia with acute expected postoperative blood loss anemia. (9) Obesity (BMI 30.0-34.9) Priority: Secondary Status: Chronic (10) Protein-calorie malnutrition, moderate Priority: Secondary Status: Chronic - Hospital Course Hospital course: Mr. Sims is a 77 year old male with a history of hyperlipidemia, hypertension and tobacco abuse who was admitted on 10/24/2017. He is taken operating room where he underwent a right femoral to popliteal artery bypass with right popliteal endarterectomy and right tibial and popliteal thrombectomy. Postoperatively he became hypotensive and was initially taken to the operating room for a possible expanding hematoma. His wound was reopened and no significant hematoma was encountered. The patient was then placed into the intensive care unit. On postoperative day #1 he had what appeared to be a syncopal episode and was treated with ACLS protocol. The patient became alert and oriented. Cardiology and critical care consult. The patient was then taken to the [facility] where he underwent heart catheter and coronary stent placement. After procedure he remained on pressors which were slowly weaned. He remained otherwise stable. He was transferred to the floor. Physical therapy and occupational therapy were performed. The patient was also discharged home in stable condition with home health. - Time Spent with Patient Total time spent providing and/or coordinating discharge services: - Discharge Medications Prescriptions: Acetaminophen [Tylenol] 1,000 mg PO Q6HR PRN #90 tablet PRN Reason: Pain Nicotine Patch [Nicoderm] 21 mg TD DAILY #30 patch.td24 Home Medications: Furosemide [Lasix] 20 mg PO BID 02/29/16 [History] Simvastatin [Zocor] 20 mg PO HS 02/29/16 [History] Tamsulosin HCl [Flomax] 0.4 mg PO DAILY 02/29/16 [History] Apixaban [Eliquis] 2.5 mg PO BID #30 tablet 03/01/16 [Rx] Nitroglycerin [Nitrostat] 0.4 mg SL AD PRN 04/12/16 [History] Finasteride [Proscar] 5 mg PO DAILY 10/02/17 [History] Clopidogrel [Plavix] 75 mg PO DAILY #30 tablet 10/16/17 [Rx] Spironolactone [Aldactone] 25 mg PO BID 10/16/17 [History] Acetaminophen [Tylenol] 1,000 mg PO Q6HR PRN #90 tablet 11/01/17 [Rx] Nicotine Patch [Nicoderm] 21 mg TD DAILY #30 patch.td24 11/01/17 [Rx] Allergies/Adverse Reactions: 3 Allergy/AdvReac Type Severity Reaction Status Date / Time No Known Allergies Allergy Verified 02/29/16 08:03 Date of admission: 10/24/17 15:16 Primary care physician: PCP [place] Consults: 10/25/17 10:51 Consult to Cardiology [CONS] Routine Comment: Consulting Provider: Cardiology Lety Reason for Consult: Intermittent presyncope and syncope x 2 years, patient has AFIB. Spoke with Dr. Johnson. Time Notified: 10:40 Call Completed: Yes 10/25/17 14:10 Consult to Critical Care [CONS] Routine Consulting Provider: Pulm Crit [facility] Reason for Consult: Hypotension, syncope Time Notified: 14:10 Call Completed: Yes 10/25/17 21:40 Consult to Cardiac Rehabilitation-Phase1 [CONS] Routine Comment: Reason for Consult: post op PCI Call Completed: Yes 10/29/17 13:38 Consult to Physical Therapy [CONS] Routine Comment: Evaluate, develop and implement POC Reason for Consult: consult for recommendation post fem pop bypass Does patient have active BEDREST order?: No Is patient medically & hemodynamically stable?: Yes Patient assessed for mobility or mobilized this visit?: No 10/29/17 13:40 Consult to Physical Therapy [CONS] Routine Comment: Evaluate, develop and implement POC Reason for Consult: post fem pop bypass and need reccomendation Does patient have active BEDREST order?: No Is patient medically & hemodynamically stable?: Yes Patient assessed for mobility or mobilized this visit?: No 10/30/17 16:40 Consult to [facility]ather Belt Shaper [CONS] Routine Reason for SW Consult: s/p [facility] needs rehab. Likely ready for discharge . Procedure(s) Performed: Right femoral to popliteal artery bypass, right lower extremity endarterectomy. Left heart catheterization with coronary stent placement. Discharging clinician: Ye Guzman Anticipated date of discharge: 11/01/17 Exam Vital Signs, Last 4 Hours Temp Pulse Resp BP Pulse Ox 11/01/17 07:07 98.2 F 71 18 115/64 92 11/01/17 04:20 98.8 F 73 16 105/68 93 General: Present: Conversant, No Apparent Distress Cardiac: Present: Irregular Rhythm Lungs: Present: Normal Breath Sounds Neuro: Present: Alert and responsive, No focal deficits noted Abdomen: Present: Soft, Non-tender Vascular: Present: Normal capillary refill, Pulse, diminished (Left pedal pulses absent pedal signals are present), Pulse, normal (Right pedal pulses palpable), Surgical incisions (Clean dry and intact without erythema or drainage ). Absent: Cyanosis, Edema Skin: Present: No rashes noted on visualized skin - Patient Status Disposition: Home Health Service Condition: Good Functional capacity at discharge: uses cane/walker Overall status at discharge: patient is progressing back to baseline - Discharge Instructions Instructions: Myocardial Infarction (DC), Peripheral Vascular Disorders (DC) Follow Up With: Ye Guzman MD [Partnered Physician] - 11/25/17 2:50 pm [facility],PCP [Primary Care Provider] - 11/08/17 10:45 am Additional Instructions: May remove the bandages and shower. Wash wound gently and pat dry. No tub baths or swimming for [address] Guzman at [phone] with questions or concerns. - VTE Reasons for not Prescribing Prophylaxis: Medical contraindication (Risk of bleeding) Documentation of Mechanical Device: Intermittent pneumatic compression device Contraindication No Overlap Therapy: Medical contraindication Deep Vein Thrombosis/Pulmonary Embolism Present on Admission: No
[2017-11-01] MEDS: Finasteride 5 MG TABLET PO SCH (08:36)
[2017-11-01] MEDS: Nicotine 21 MG PATCH.TD24 TD SCH (08:36)
[2017-11-01] MEDS: Furosemide 40 MG TABLET PO SCH (08:36)
[2017-11-01] MEDS: Apixaban 5 MG TABLET PO SCH (08:37)
--- NOTE | 2017-11-01 09:13 | Physician Discharge Referral ---
Home Health/Hosp Referral Info Transfer to: Home Health Provider in Charge Post Discharge: PCP - Diagnosis (1) Atherosclerosis of [place] artery of both lower extremities with intermittent claudication Priority: Primary Status: Chronic (2) Chronic atrial fibrillation Priority: Secondary Status: Chronic (3) Dyslipidemia Priority: Secondary Status: Chronic (4) CKD (chronic kidney disease), stage III Priority: Secondary Status: Chronic (5) COPD (chronic obstructive pulmonary disease) Priority: Secondary Status: Chronic (6) CAD (coronary artery disease) Priority: Secondary Status: Chronic (7) Tobacco abuse Status: Chronic (8) Chronic anemia Status: Chronic - Respiratory Orders Smoking Cessation: Smoking cessation has been advised. For more information, call the [place] Tobacco Quit Line at 9-930-XFEU-NOW. - Diet/Nutrition Diet/Nutrition Orders: Cardiac - Activity Activity Orders: Up ad serene - Services Needed Following services are medically necessary services: Home Health Aide, Physical Therapy - Transfer Medications Prescriptions: Acetaminophen [Tylenol] 1,000 mg PO Q6HR PRN #90 tablet PRN Reason: Pain Nicotine Patch [Nicoderm] 21 mg TD DAILY #30 patch.td24 Home Medications: Furosemide [Lasix] 20 mg PO BID 02/29/16 [History] Simvastatin [Zocor] 20 mg PO HS 02/29/16 [History] Tamsulosin HCl [Flomax] 0.4 mg PO DAILY 02/29/16 [History] Apixaban [Eliquis] 2.5 mg PO BID #30 tablet 03/01/16 [Rx] Nitroglycerin [Nitrostat] 0.4 mg SL AD PRN 04/12/16 [History] Finasteride [Proscar] 5 mg PO DAILY 10/02/17 [History] Clopidogrel [Plavix] 75 mg PO DAILY #30 tablet 10/16/17 [Rx] Spironolactone [Aldactone] 25 mg PO BID 10/16/17 [History] Acetaminophen [Tylenol] 1,000 mg PO Q6HR PRN #90 tablet 11/01/17 [Rx] Nicotine Patch [Nicoderm] 21 mg TD DAILY #30 patch.td24 11/01/17 [Rx] Allergies/Adverse Reactions: 3 Allergy/AdvReac Type Severity Reaction Status Date / Time No Known Allergies Allergy Verified 02/29/16 08:03 Certification: Further, I certify that my clinical findings support that this patient is homebound (i.e. absences from home require considerable and taxing effort and are for medical reasons or [facility] or infrequently or short duration when for other reasons) because: Homebound Reason: Patient requires assistance of a person or device to safely leave home, Leaving home requires considerable and taxing effort due to condition Attestation: My signature below is to certify that this patient is under my care and that I, or nurse practitioner, or a physician's veterinary assistant technician working with me, has a face-to -face encounter with this patient.
== END 2017-11-01 11:04 | disposition home health service (06) | DRG 246 ==
LOC: SAMDAY 06:14 → 2NNU 15:16 → ICNU 22:06 → 2NNU 10-30 13:28
PROVIDERS: ADMIT Surgery; ATTEND Surgery

== ENCOUNTER 2020-12-26 14:16 | Inpatient (IN) ==
[2020-12-26] MEDS ORDERED: Piperacillin/Tazobactam 3.375 GM in 0.9 % Sodium Chloride Mini Bag 100 ML IVPB ONE (15:34)
[2020-12-26] MEDS ORDERED: *HR* FentaNYL (PF) 100 MCG/2 ML VIAL IVP ONE (15:42)
[2020-12-26 16:05] LABS: Basophils % 0.1 %; Eosinophils % 0.1 %; Hematocrit 32.1 % (37.5-50.1); Hemoglobin 10.1 g/dL (12.9-16.9); Immature Granulocytes % 0.7 % (0-4); Lymphocytes # 0.4 K/mcL (0.6-4.6); Lymphocytes % 3.1 %; Mean Corpuscular HGB Conc 31.5 g/dL (31.6-35.5); Mean Corpuscular Hemoglobin 27.9 pg (28.0-33.3); Mean Corpuscular Volume 88.7 fL (83.0-100.0); Mean Platelet Volume 10.1 fL (9.4-12.4); Monocytes # 0.3 K/mcL (0.0-1.3); Monocytes % 2.6 %; Neutrophils # 11.9 K/mcL (1.6-8.9); Platelet Count 264 K/mcL (140-400); Red Blood Count 3.62 M/mcL (4.19-5.50); Red Cell Distribution Width 15.2 % (11.5-14.5); Segmented Neutrophils % 93.4 %; White Blood Count 12.8 K/mcL (4.3-11.1)
[2020-12-26 16:13] LABS: Calcium 9.6 mg/dL (8.6-10.3); Potassium 4.7 mEq/L (3.5-5.1)
[2020-12-26] MEDS ORDERED: Acetaminophen 325 MG TABLET PO PRN (17:45)
[2020-12-26] MEDS ORDERED: Naloxone 0.4 MG/ML INJ IVP PRN (17:55)
[2020-12-27] MEDS ORDERED: Piperacillin/Tazobactam 3.375 GM VIAL ONE (00:22)
[2020-12-27] MEDS: Piperacillin/Tazobactam 3.375 GM in 0.9 % Sodium Chloride Mini Bag 100 ML IVPB SCH ×3 (00:27→16:15)
[2020-12-27 06:04] LABS: Hematocrit 30.7 % (37.5-50.1); Mean Corpuscular HGB Conc 32.6 g/dL (31.6-35.5); Mean Corpuscular Hemoglobin 29.2 pg (28.0-33.3); Mean Corpuscular Volume 89.5 fL (83.0-100.0); Mean Platelet Volume 10.2 fL (9.4-12.4); Platelet Count 262 K/mcL (140-400); Red Blood Count 3.43 M/mcL (4.19-5.50); Red Cell Distribution Width 15.3 % (11.5-14.5); White Blood Count 10.7 K/mcL (4.3-11.1)
[2020-12-27 06:12] LABS: INR 1.4; Prothrombin Time 16.1 Seconds (9.4-12.1)
[2020-12-27 06:15] LABS: Activated Partial Thrombo Time 27.1 Seconds (26.0-36.0)
[2020-12-27 06:24] LABS: Calcium 9.3 mg/dL (8.6-10.3); Potassium 4.7 mEq/L (3.5-5.1)
[2020-12-27] MEDS ORDERED: Vancomycin 1,250 MG/262.5 ML IV.SOLN IVPB SCH (12:00)
[2020-12-27] MEDS ORDERED: *HR* FentaNYL (PF) 100 MCG/2 ML VIAL ONE (21:31)
[2020-12-27] MEDS ORDERED: *HR* Propofol 200 MG/20 ML VIAL IVP ONE (21:31)
[2020-12-27] MEDS ORDERED: Lidocaine -MPF 2% 2 ML VIAL ONE (21:32)
[2020-12-27] MEDS ORDERED: Lidocaine/EPI 1:200k 1% PF 10 ML VIAL ONE (21:48)
[2020-12-27] MEDS ORDERED: Ondansetron 4 MG/2 ML VIAL ONE (21:55)
[2020-12-27] MEDS ORDERED: EPHEDrine 50 MG/ML VIAL ONE (22:25)
[2020-12-28] MEDS: Acetaminophen IV 1,000 MG/100 ML BAG IVPB SCH ×5 (00:43→23:50)
[2020-12-28] MEDS ORDERED: Piperacillin/Tazobactam 3.375 GM in 0.9 % Sodium Chloride Mini Bag 100 ML IVPB SCH (06:00)
[2020-12-28] MEDS ORDERED: Morphine Sulfate 2 MG/ML SYRINGE IVP ONE (10:28)
[2020-12-28] MEDS: Cefepime HCl 2,000 MG in Water for inj. (sterile) 20 ML IVP SCH (12:00)
[2020-12-28] MEDS ORDERED: Vancomycin 1,250 MG/262.5 ML IV.SOLN IVPB SCH (12:00)
[2020-12-28 20:18] LABS: Troponin I < 0.03 ng/mL (< 0.04)
[2020-12-28 20:33] LABS: Thyroid Stimulating Hormone 5.419 mcIU/mL (0.340-5.600)
[2020-12-28] MEDS ORDERED: Apixaban 5 MG TABLET PO SCH (21:00)
[2020-12-29 02:47] LABS: Hemoglobin 9.9 g/dL (12.9-16.9); Mean Corpuscular HGB Conc 30.9 g/dL (31.6-35.5); Mean Corpuscular Volume 90.7 fL (83.0-100.0); Platelet Count 243 K/mcL (140-400); Red Blood Count 3.53 M/mcL (4.19-5.50); Red Cell Distribution Width 15.5 % (11.5-14.5); White Blood Count 8.3 K/mcL (4.3-11.1)
[2020-12-29 03:11] LABS: Calcium 8.9 mg/dL (8.6-10.3); Potassium 4.5 mEq/L (3.5-5.1)
[2020-12-29] MEDS: Acetaminophen IV 1,000 MG/100 ML BAG IVPB SCH ×2 (05:50→11:35)
[2020-12-29] MEDS: Cefepime HCl 2,000 MG in Water for inj. (sterile) 20 ML IVP SCH (10:21)
[2020-12-29] MEDS: cefTRIAXone 2,000 MG in 0.9 % Sodium Chloride Mini Bag 100 ML IVPB SCH (11:36)
[2020-12-29] MEDS: Apixaban 5 MG TABLET PO SCH (19:55)
[2020-12-30 03:37] VITALS: O2SAT 96
[2020-12-30 06:12] LABS: Hematocrit 31.8 % (37.5-50.1); Hemoglobin 10.2 g/dL (12.9-16.9); Mean Corpuscular HGB Conc 32.1 g/dL (31.6-35.5); Mean Corpuscular Hemoglobin 28.8 pg (28.0-33.3); Mean Corpuscular Volume 89.8 fL (83.0-100.0); Platelet Count 260 K/mcL (140-400); Red Blood Count 3.54 M/mcL (4.19-5.50); Red Cell Distribution Width 15.4 % (11.5-14.5); White Blood Count 8.5 K/mcL (4.3-11.1)
[2020-12-30 06:58] LABS: Calcium 9.3 mg/dL (8.6-10.3); Potassium 4.4 mEq/L (3.5-5.1)
[2020-12-30 07:04] VITALS: BP 148/66; PULSE 57; TEMP 98.3
[2020-12-30] MEDS: Apixaban 5 MG TABLET PO SCH (09:31)
[2020-12-30] MEDS: cefTRIAXone 2,000 MG in 0.9 % Sodium Chloride Mini Bag 100 ML IVPB SCH (09:31)
== END 2020-12-30 15:55 | disposition home or self-care (01) | DRG 549 ==
LOC: 3ANU 14:16 → EMEROOARM 14:16 → SUATTDRO 17:05 → 3ANU 18:50 → SUATTDRO 12-27 13:52
PROVIDERS: ADMIT Internal Medicine; ATTEND Internal Medicine

== ENCOUNTER 2021-04-25 12:48 | Inpatient (IN) ==
[2021-04-25] MEDS ORDERED: CeFAZolin Syr 2,000MG/20 ML 2,000 MG/20 ML SYRINGE IVPB ONE (13:26)
[2021-04-25] MEDS ORDERED: *HR* Labetalol 20 MG/4 ML SYRINGE IVP PRN ×2 (13:27→23:27)
[2021-04-25] MEDS ORDERED: Famotidine 20 MG/2 ML VIAL IVP ONE (13:27)
[2021-04-25] MEDS ORDERED: *HR* HYDROmorphone PF 0.5 MG/0.5 ML SYRINGE IVP PRN (13:27)
[2021-04-25] MEDS ORDERED: Acetaminophen IV 1,000 MG/100 ML BAG IVPB ONE (13:27)
[2021-04-25] MEDS ORDERED: *HR* HYDROmorphone 2 MG TABLET PO PRN (13:27)
[2021-04-25] MEDS ORDERED: *HR* OxyCODONE Immed Rel 5 MG TABLET PO PRN ×2 (13:27→23:27)
[2021-04-25] MEDS ORDERED: Ringers Solution, Lactated 1,000 ML IVC SCH (13:30)
[2021-04-25] MEDS ORDERED: ceFAZolin 1,000 MG, Sodium Chloride IRRigation 1,000 ML IR ONE (14:00)
[2021-04-25] MEDS ORDERED: Lidocaine -MPF 2% 5 ML VIAL ONE (14:08)
[2021-04-25] MEDS ORDERED: *HR* Succinylcholine 200 MG/10 ML VIAL IVP ONE (14:08)
[2021-04-25] MEDS ORDERED: *HR* Etomidate 40 MG/20 ML VIAL IVP ONE (14:08)
[2021-04-25] MEDS ORDERED: *HR* Rocuronium Bromide 50 MG/5 ML VIAL ONE ×2 (14:08→18:40)
[2021-04-25] MEDS ORDERED: Heparin 1,000 UNITS/500 mL 0 ML ONE (14:20)
[2021-04-25] MEDS ORDERED: Levalbuterol Neb 1.25 MG/3 ML IH SCH (14:30)
[2021-04-25] MEDS ORDERED: *HR* Midazolam HCl 2 MG/2 ML VIAL ONE (14:47)
[2021-04-25] MEDS ORDERED: *HR* FentaNYL (PF) 100 MCG/2 ML VIAL ONE (14:47)
[2021-04-25] MEDS ORDERED: *HR* Remifentanil 2 MG VIAL IVP ONE (14:47)
[2021-04-25] MEDS ORDERED: Albumin Human 5% 25.0 GM/500 ML IV.SOLN ONE (15:47)
[2021-04-25] MEDS ORDERED: NiCARdipine 2.5 MG/10 ML Syringe IVPB ONE (15:47)
[2021-04-25] MEDS ORDERED: *HR* Vasopressin 20 UNIT/ML VIAL ONE (15:47)
[2021-04-25] MEDS ORDERED: Heparin 1,000 UNITS/500 mL 500 ML ONE (15:50)
[2021-04-25 17:15] LABS: ABG Base Excess -1 mEq/L (-2 to 3); ABG Chloride 106 mEq/L (98-107); ABG Glucose 77 mg/dL (60-95); ABG HCO3 24 mEq/L (21-27); ABG Ionized Calcium 1.22 mmol/L (1.15-1.35); ABG Oxygen Saturation 100 % (95-98); ABG PCO2 42 mmHg (35-45); ABG PH 7.37 pH Units (7.32-7.45); ABG PO2 288 mmHg (85-104); ABG TCO2 25 mEq/L (20-26)
[2021-04-25] MEDS ORDERED: Ondansetron 4 MG/2 ML VIAL ONE (17:15)
[2021-04-25] MEDS ORDERED: *HR* Heparin 5,000 UNIT/ML VIAL ONE (19:31)
[2021-04-25] MEDS ORDERED: Sugammadex Sodium 200 MG/2 ML VIAL IV ONE ×2 (21:11→21:47)
[2021-04-25] MEDS ORDERED: *HR* HYDROMORPHONE 2 MG/ML VIAL ONE (21:22)
[2021-04-25 23:04] LABS: Hematocrit 32.7 % (37.5-50.1); Hemoglobin 10.4 g/dL (12.9-16.9)
[2021-04-25] MEDS ORDERED: Ondansetron 4 MG/2 ML VIAL IVP PRN (23:27)
[2021-04-25] MEDS ORDERED: *HR* HYDROcodone/Acet 5/325 mg TABLET PO PRN (23:27)
[2021-04-25] MEDS ORDERED: (Diclofenac Sodium [Voltaren] 100 GM Gel..Gram.) TP PRN (23:27)
[2021-04-25] MEDS ORDERED: Triamcinolone Acet 0.1% CRM 15 GM TUBE TP PRN (23:27)
[2021-04-25] MEDS ORDERED: Acetaminophen 325 MG TABLET PO PRN (23:27)
[2021-04-25] MEDS ORDERED: Naloxone 0.4 MG/ML INJ IVP PRN (23:27)
[2021-04-26] MEDS: CeFAZolin 2 GM/120 ML BAG IVPB SCH ×3 (01:04→16:03)
[2021-04-26 03:52] LABS: Basophils % 0.1 %; Hematocrit 30.7 % (37.5-50.1); Hemoglobin 9.6 g/dL (12.9-16.9); Immature Granulocytes % 0.4 % (0-4); Lymphocytes # 0.4 K/mcL (0.6-4.6); Lymphocytes % 3.8 %; Mean Corpuscular HGB Conc 31.3 g/dL (31.6-35.5); Mean Corpuscular Hemoglobin 28.2 pg (28.0-33.3); Mean Corpuscular Volume 90.3 fL (83.0-100.0); Mean Platelet Volume 10.2 fL (9.4-12.4); Monocytes # 0.3 K/mcL (0.0-1.3); Monocytes % 2.5 %; Platelet Count 202 K/mcL (140-400); Red Cell Distribution Width 15.8 % (11.5-14.5); Segmented Neutrophils % 93.2 %
[2021-04-26 03:56] LABS: Neutrophils # 9.2 K/mcL (1.6-8.9); White Blood Count 9.9 K/mcL (4.3-11.1)
[2021-04-26 03:57] LABS: Calcium 8.6 mg/dL (8.6-10.3)
[2021-04-26] MEDS ORDERED: Furosemide 20 MG TABLET PO SCH (09:00)
[2021-04-26] MEDS ORDERED: Spironolactone 25 MG TABLET PO SCH (09:00)
[2021-04-26 11:35] VITALS: O2SAT 94
[2021-04-26 16:25] VITALS: BP 105/74; PULSE 62; TEMP 98.2
== END 2021-04-26 18:10 | disposition home or self-care (01) | DRG 253 ==
LOC: SAMDAY 12:48 → 2NNU 23:19
PROVIDERS: ADMIT Surgery Vascular Surgery; ATTEND Surgery Vascular Surgery

== ENCOUNTER 2021-08-07 10:24 | Inpatient (IN) ==
[2021-08-07] MEDS ORDERED: CeFAZolin Syr 2,000MG/20 ML 2,000 MG/20 ML SYRINGE IVPB ONE (10:45)
[2021-08-07] MEDS ORDERED: Ringers Solution, Lactated 1,000 ML IVC SCH (10:45)
[2021-08-07] MEDS ORDERED: Heparin 1,000 UNITS/500 mL 500 ML ONE (11:49)
[2021-08-07] MEDS ORDERED: Lidocaine -MPF 2% 5 ML VIAL ONE (11:50)
[2021-08-07] MEDS ORDERED: *HR* Rocuronium Bromide 50 MG/5 ML VIAL ONE ×2 (11:50→13:32)
[2021-08-07] MEDS ORDERED: *HR* FentaNYL (PF) 100 MCG/2 ML VIAL ONE (11:50)
[2021-08-07] MEDS ORDERED: Ondansetron 4 MG/2 ML VIAL ONE (11:50)
[2021-08-07] MEDS ORDERED: *HR* Propofol 200 MG/20 ML VIAL IVP ONE (11:50)
[2021-08-07] MEDS ORDERED: Ketamine HCL *QUVA* 50mg (1mL) SYRINGE ONE (11:51)
[2021-08-07] MEDS ORDERED: *HR* Vasopressin 20 UNIT/ML VIAL ONE (11:57)
[2021-08-07] MEDS ORDERED: Promethazine 6.25 MG in Water for inj. (sterile) 20 ML IVPB PRN (11:58)
[2021-08-07] MEDS ORDERED: Ondansetron 4 MG/2 ML VIAL IVP PRN (11:58)
[2021-08-07] MEDS ORDERED: *HR* OxyCODONE Immed Rel 5 MG TABLET PO PRN (11:58)
[2021-08-07] MEDS ORDERED: 0.9 % Sodium Chloride 500 ML IVC SCH (12:00)
[2021-08-07] MEDS ORDERED: ceFAZolin 1,000 MG, Sodium Chloride IRRigation 1,000 ML IR ONE (12:15)
[2021-08-07] MEDS ORDERED: Lidocaine HCL 4 ML Topical Solution (Laryng-O-Jet Kit Sterile Pak) TP ONE (12:25)
[2021-08-07] MEDS: *HR* HYDROmorphone PF 0.5 MG/0.5 ML SYRINGE IVP PRN ×2 (14:54→15:10)
[2021-08-07] MEDS ORDERED: 0.9 % Sodium Chloride 1,000 ML IVC SCH (16:19)
[2021-08-07] MEDS ORDERED: Ondansetron ODT 4 MG TAB.RAPDIS SL PRN (16:19)
[2021-08-07] MEDS ORDERED: *HR* HYDROmorphone (PF) 1 MG/ML SYRINGE IVP PRN (16:19)
[2021-08-07] MEDS: Furosemide 20 MG TABLET PO SCH (17:08)
[2021-08-07] MEDS: CeFAZolin 2 GM/120 ML BAG IVPB SCH (17:09)
[2021-08-07] MEDS: *HR* HYDROcodone/Acet 5/325 mg TABLET PO PRN (22:16)
[2021-08-07] MEDS: Spironolactone 25 MG TABLET PO SCH (22:16)
[2021-08-08] MEDS: CeFAZolin 2 GM/120 ML BAG IVPB SCH ×2 (00:09→09:04)
[2021-08-08 03:05] LABS: Basophils % 0.3 %; Hematocrit 23.9 % (37.5-50.1); Hemoglobin 7.3 g/dL (12.9-16.9); Immature Granulocytes % 0.5 % (0-4); Lymphocytes # 0.4 K/mcL (0.6-4.6); Lymphocytes % 4.5 %; Mean Corpuscular HGB Conc 30.5 g/dL (31.6-35.5); Mean Corpuscular Hemoglobin 26.9 pg (28.0-33.3); Mean Corpuscular Volume 88.2 fL (83.0-100.0); Mean Platelet Volume 10.1 fL (9.4-12.4); Monocytes # 0.3 K/mcL (0.0-1.3); Monocytes % 3.6 %; Neutrophils # 7.2 K/mcL (1.6-8.9); Platelet Count 220 K/mcL (140-400); Red Blood Count 2.71 M/mcL (4.19-5.50); Red Cell Distribution Width 16.4 % (11.5-14.5); Segmented Neutrophils % 91.1 %; White Blood Count 7.9 K/mcL (4.3-11.1)
[2021-08-08 03:24] LABS: Calcium 9.6 mg/dL (8.6-10.3); Potassium 5.2 mEq/L (3.5-5.1)
[2021-08-08] MEDS: Furosemide 20 MG TABLET PO SCH ×2 (05:40→17:00)
[2021-08-08] MEDS: *HR* HYDROcodone/Acet 5/325 mg TABLET PO PRN ×3 (05:40→16:59)
[2021-08-08] MEDS: Spironolactone 25 MG TABLET PO SCH ×2 (09:04→21:14)
[2021-08-08] MEDS: allopurinoL 100 MG TABLET PO SCH (09:04)
[2021-08-08] MEDS: Nicotine 21 MG PATCH.TD24 TD SCH (09:49)
[2021-08-08] MEDS ORDERED: 0.9 % Sodium Chloride 250 ML ONE (11:12)
[2021-08-09] MEDS: *HR* OxyCODONE/APAP 10/325 TABLET PO PRN ×2 (00:08→17:10)
[2021-08-09] MEDS: Furosemide 20 MG TABLET PO SCH ×2 (06:11→17:10)
[2021-08-09] MEDS: allopurinoL 100 MG TABLET PO SCH (08:10)
[2021-08-09] MEDS: Nicotine 21 MG PATCH.TD24 TD SCH (08:10)
[2021-08-09] MEDS: Spironolactone 25 MG TABLET PO SCH ×2 (08:10→20:55)
[2021-08-09] MEDS: *HR* HYDROcodone/Acet 5/325 mg TABLET PO PRN (08:23)
[2021-08-10 06:16] LABS: Hematocrit 27.7 % (37.5-50.1); Hemoglobin 8.7 g/dL (12.9-16.9)
[2021-08-10] MEDS: Furosemide 20 MG TABLET PO SCH ×2 (06:51→20:37)
[2021-08-10] MEDS: Spironolactone 25 MG TABLET PO SCH ×2 (08:57→20:37)
[2021-08-10] MEDS: *HR* OxyCODONE/APAP 10/325 TABLET PO PRN ×2 (08:57→15:50)
[2021-08-10] MEDS: allopurinoL 100 MG TABLET PO SCH (08:57)
[2021-08-10] MEDS: Nicotine 21 MG PATCH.TD24 TD SCH (08:58)
[2021-08-10] MEDS: Apixaban 2.5 MG TABLET PO SCH ×2 (15:50→20:37)
[2021-08-11] MEDS: Furosemide 20 MG TABLET PO SCH ×2 (05:41→17:44)
[2021-08-11 06:48] VITALS: O2SAT 93
[2021-08-11] MEDS: Apixaban 2.5 MG TABLET PO SCH (08:44)
[2021-08-11] MEDS: Spironolactone 25 MG TABLET PO SCH (08:44)
[2021-08-11] MEDS: allopurinoL 100 MG TABLET PO SCH (08:45)
[2021-08-11] MEDS: Nicotine 21 MG PATCH.TD24 TD SCH (08:45)
[2021-08-11 12:52] LABS: Adenovirus Not Detected (Not Detect); Bordetella Pertussis Not Detected (Not Detect); Chlamydophila pneumoniae Not Detected (Not Detect); Coronavirus 229E Not Detected (Not Detect); Coronavirus HKU1 Not Detected (Not Detect); Coronavirus NL63 Not Detected (Not Detect); Coronavirus OC43 Not Detected (Not Detect); Human Metapneumovirus Not Detected (Not Detect); Human Rhinovirus/Enterovirus Not Detected (Not Detect); Influenza A Subtype 2009 H1 Not Detected (Not Detect); Influenza B Not Detected (Not Detect); Mycoplasma pneumoniae Not Detected (Not Detect); Parainfluenza Virus 1 Not Detected (Not Detect); Parainfluenza Virus 2 Not Detected (Not Detect); Parainfluenza Virus 3 Not Detected (Not Detect); Parainfluenza Virus 4 Not Detected (Not Detect); Respiratory Syncytial Virus Not Detected (Not Detect); SARS-CoV-2 Not Detected (Not Detect)
[2021-08-11 14:01] VITALS: BP 97/54; PULSE 78; TEMP 97.9
== END 2021-08-11 18:08 | DRG 240 ==
LOC: SAMDAY 10:24 → 3ANU 16:15
PROVIDERS: ADMIT Surgery Vascular Surgery; ATTEND Surgery Vascular Surgery

== ENCOUNTER 2021-09-04 13:19 | Observation (INO) ==
[2021-09-04] MEDS ORDERED: *HR* HYDROcodone/Acet 5/325 mg TABLET PO PRN (14:54)
[2021-09-04] MEDS ORDERED: Naloxone 0.4 MG/ML INJ IVP PRN (14:54)
[2021-09-04] MEDS ORDERED: Acetaminophen 325 MG TABLET PO PRN (14:54)
[2021-09-04] MEDS ORDERED: Ondansetron 4 MG/2 ML VIAL IVP PRN (14:54)
[2021-09-04] MEDS ORDERED: Furosemide 40 MG/4 ML VIAL IVP ONE (15:11)
[2021-09-04] MEDS: Apixaban 5 MG TABLET PO SCH (20:33)
[2021-09-04] MEDS: Spironolactone 25 MG TABLET PO SCH (20:33)
[2021-09-05 01:51] LABS: Basophils % 0.7 %; Eosinophils # 0.4 K/mcL (0.0-0.6); Eosinophils % 6.4 %; Hematocrit 24.9 % (37.5-50.1); Hemoglobin 7.8 g/dL (12.9-16.9); Immature Granulocytes % 0.4 % (0-4); Lymphocytes % 17.5 %; Mean Corpuscular HGB Conc 31.3 g/dL (31.6-35.5); Mean Corpuscular Hemoglobin 26.5 pg (28.0-33.3); Mean Corpuscular Volume 84.7 fL (83.0-100.0); Monocytes # 0.7 K/mcL (0.0-1.3); Monocytes % 11.6 %; Neutrophils # 3.6 K/mcL (1.6-8.9); Platelet Count 205 K/mcL (140-400); Red Blood Count 2.94 M/mcL (4.19-5.50); Red Cell Distribution Width 17.6 % (11.5-14.5); Segmented Neutrophils % 63.4 %; White Blood Count 5.6 K/mcL (4.3-11.1)
[2021-09-05 02:15] LABS: Potassium 3.9 mEq/L (3.5-5.1); Troponin I 0.04 ng/mL (< 0.04)
[2021-09-05 03:15] LABS: Calcium 8.7 mg/dL (8.6-10.3); Chol/HDL Ratio 3.1 (0-4.9); Magnesium 1.7 mg/dL (1.6-2.6)
[2021-09-05] MEDS ORDERED: Furosemide 40 MG/4 ML VIAL IVP ONE (07:15)
[2021-09-05 07:38] VITALS: TEMP 98.6
[2021-09-05] MEDS: Spironolactone 25 MG TABLET PO SCH (08:19)
[2021-09-05] MEDS: Apixaban 5 MG TABLET PO SCH (08:19)
[2021-09-05] MEDS ORDERED: Gabapentin 100 MG CAPSULE PO SCH (09:00)
[2021-09-05] MEDS ORDERED: allopurinoL 100 MG TABLET PO SCH (09:00)
[2021-09-05 11:06] VITALS: BP 111/47; PULSE 63; O2SAT 92
== END 2021-09-05 12:14 | disposition home or self-care (01) ==
LOC: 2ANU
PROVIDERS: ADMIT Internal Medicine; ATTEND Internal Medicine